=== PATIENT | female | born 1975 | race Caucasian/White ===

== ENCOUNTER 2017-05-07 10:25 | Day surgery (SDC) | payer BC ==
[2017-05-03 10:59] VITALS: BMI 25.5
[~2017-05-07 10:25] MED LIST: DEXAMETHASONE SOD PHOSPHATE 10 MG/ML 1 ML VIAL IV ONE; FAMOTIDINE 20 MG/2 ML VIAL IV PRN; HEPARIN SODIUM,PORCINE 5,000 UNIT/ML 1 ML VIAL SQ ONE; HYDROmorphone 1 MG/ML 1 ML SYRINGE IVP PRN; LACTATED RINGERS 1,000 ML IV SCH; LIDOCAINE 1% 20 ML VIAL (10MG/ML) FOR IV START INTRADERMA PRN; Pre Op ABX Message 1 EACH MISC MISCELLANE ONE; SCOPOLAMINE 1.5MG/72HR PATCH TRANSDERM ONE
[2017-05-07] MEDS ORDERED: ALPRAZolam 0.5 MG TAB PO ONE (11:10)
[2017-05-07 11:56] VITALS: RESP 16
[2017-05-07 12:40] VITALS: TEMP 97.8
[2017-05-07] MEDS ORDERED: LIDOCAINE (PF) 10 MG/ML 2 ML VIAL SQ ONE ×3 (13:41→13:57)
[2017-05-07] MEDS ORDERED: KETOROLAC 30 MG/ML 1 ML VIAL ONE (13:44)
[2017-05-07] MEDS ORDERED: PROPOFOL 10 MG/ML 20 ML VIAL IV ONE (13:44)
[2017-05-07] MEDS ORDERED: fentaNYL (PF) 50 MCG/ML 2 ML AMP ONE (13:44)
[2017-05-07] MEDS ORDERED: MIDAZOLAM 2 MG/2 ML VIAL ONE (13:44)
[2017-05-07] MEDS ORDERED: LIDOCAINE 1% INJ 10MG/ML (20 ML MDV) ONE (13:44)
[2017-05-07] MEDS ORDERED: SODIUM CHLORIDE 0.9% 100 ML with CLINDAMYCIN 600 MG IV ONE ×2 (13:56)
--- NOTE | 2017-05-07 14:49 | P.PCN ---
Date of Procedure: 05/07/17 Preoperative Diagnosis: Right breast mass Birads 4 (per ultrasound) Postoperative Diagnosis: Right breast mass fibroadenosis Procedure(s) Performed: Needle localized biopsy of right breast mass Implants: Anesthesia: local Surgeon: Isabel Ying Estimated Blood Loss (ml): 4 Pathology: other Condition: stable Disposition: PACU Indications for Procedure: Operative Findings: Fibroadnosis like firm tissue in the right breast. The mass measured approximately 2.5 x 3.5 x 5.5 Description of Procedure: With the palpable lump and had been there for 15 years. To change shape. Mammogram did not reveal anything with the ultrasound revealed the parents for lesion that wasn't biopsied using a needle core. However that showed fibrotic tissue which is discordant with the BIRADS 4 reading. Because of that the patient was recommended a needle localized excisional biopsy of the area of suspicion. Informed consent was obtained. Patient was identified. Palpating holding area after the needle localized wire was placed. The appropriate sizes markers were answered he was taken to the operating room in supine position given IV sedation. She was given preoperative antibiotics as well as SCDs. If her clinical surgical fashion after the dressing is been taken off and the wire been cut down to size. A curvilinear incision was made and deepened to the skin with the help of a scalpel and then hemostat was used to dissect superiorly and a niece the skin and above the breast tissue to bring out the wire. This was then traced down all the way to the mass and left cautery was used to completely excise the entire piece of tissue. The tissue itself was then marked with the help of short superior black nylon suture long lateral nylon suture that was black. And double long posterior blue sutures. Hemostasis was secured there with electrocautery subcu tissues tissue was closed with 3-0 Vicryl and skin was closed with 4-0 Monocryl. Dermabond was applied. 4 x 4 placed as well as sports 5. Personal history well there were complications remaining part of the local anesthetic was injected into the surrounding tissues. Patient procedure well and taken to recovery room in stable condition. Plan - Discharge Summary New Discharge Prescriptions: No Action Levothyroxine Sodium [Synthroid] 25 mcg PO DAILY lamoTRIgine [LaMICtal] 100 mg PO DAILY Gabapentin [Neurontin] 400 mg PO TID Famotidine 40 mg PO DAILY Metaxalone 800 mg PO TID Dicyclomine HCl 20 mg PO DAILY PRN PRN Reason: irritable bowel DULoxetine HCL [Cymbalta] 60 mg PO BID Discharge Medication List Dicyclomine HCl 20 mg PO DAILY PRN 05/03/17 [History] Famotidine 40 mg PO DAILY 05/03/17 [History] Gabapentin [Neurontin] 400 mg PO TID 05/03/17 [History] Levothyroxine Sodium [Synthroid] 25 mcg PO DAILY 05/03/17 [History] Metaxalone 800 mg PO TID 05/03/17 [History] lamoTRIgine [LaMICtal] 100 mg PO DAILY 05/03/17 [History] DULoxetine HCL [Cymbalta] 60 mg PO BID 05/07/17 [History]
[2017-05-07 15:31] VITALS: BP 119/82; PULSE 74
--- NOTE | 2017-05-07 17:21 | MM ---
EXAMINATION TYPE: MG pre op needle loc RT DATE OF EXAM: 05/07/2017 COMPARISON: NONE CLINICAL HISTORY: Abnormal mammogram TECHNIQUE: Needle localization with wire placement and surgical excision of area of concern in the right breast. FINDINGS: The procedure of needle localization with wire placement and than surgical excision was explained to the patient. Benefits, alternatives, and risks were discussed. An informed consent was then obtained. The shortest pathway for procedure was chosen. Shortest pathway was superior approach. The overlying skin was prepped and draped in usual sterile fashion. Lidocaine buffered with bicarbonate was used as anesthetic into the skin and subcutaneous tissue up to the level of area of concern. A 5 cm needle was used. It was placed via a superior approach under mammographic guidance. Subsequent 90 degrees mammogram show the needle to be in satisfactory position relative to the targeted area. At this point, wire was placed and the needle was withdrawn. The wire was fixed to patient's skin. Images were marked for surgeon. The patient tolerated the procedure well without any immediate complication. The patient was kept in the radiology department for short stay after the procedure and then taken to surgery for surgical excision. Surgical clip and wire are identified in specimen mammogram. The patient was kept in hospital for short stay after the procedure and then discharged home in stable condition. IMPRESSION: Successful, uncomplicated needle localization with wire placement and surgical excision of surgical clip region in the right breast, full pathology results to follow. Pathology Results: Benign BREAST, RIGHT, NEEDLE LOCALIZATION EXCISION: FIBROADENOMA EXTENDING TO THE RESECTION MARGIN. FIBROCYSTIC CHANGES INCLUDING FIBROSIS, CYSTS, AND ADENOSIS. PREVIOUS BIOPSY SITE. Recommendation Follow up mammogram of the right breast in 6 months. GABRIELA
--- NOTE | 2017-05-07 17:24 | MM ---
EXAMINATION TYPE: MG surgical specimen RT DATE OF EXAM: 05/07/2017 Findings: Surgical clip is within the specimen. The wire may be at the [id number] but is incomplet clay evaluated. IMPRESSION: Successful excision of localized surgical clip
== END 2017-05-07 15:36 | disposition home or self-care (01) ==
LOC: OR 10:25
PROVIDERS: ATTEND Surgery
DX: N60.21 Fibroadenosis of right breast (principal); K58.9 Irritable bowel syndrome, unspecified; R92.8 Other abnormal and inconclusive findings on diagnostic imaging of breast; Z79.899 Other long term (current) drug therapy
CPT/HCPCS: 81025; 88307; 76098; 19281; J2250; J2001 ×2; J1644; J1100; J3010; J1885; J2704

== ENCOUNTER 2017-06-21 19:01 | Observation (INO) | payer BC ==
[2017-06-21] MEDS ORDERED: SODIUM CHLORIDE 0.9% 1,000 ML IV ONE (19:57)
[2017-06-21] MEDS ORDERED: ONDANSETRON 4 MG/2 ML VIAL IVP STA (19:57)
[2017-06-21] MEDS ORDERED: MORPHINE SULFATE 4 MG/ML SYRINGE IVP STA (19:57)
[2017-06-21 20:05] LABS: Basophils # (A) 0.1 k/uL (0-0.2); Basophils % (A) 1 %; CH 30.9; CHCM 34.6; Eosinophils # (A) 0.2 k/uL (0-0.7); Eosinophils % (A) 2 %; HCT 41.8 % (34.0-46.0); HDW 2.45; HGB 14.1 gm/dL (11.4-16.0); Luc % (Auto) 2; Lymphocytes % (A) 17 %; MCH 30.3 pg (25.0-35.0); MCHC 33.8 g/dL (31.0-37.0); MCV 89.5 fL (80.0-100.0); Mean Platelet Volume 8.5; Monocytes # (A) 0.6 k/uL (0-1.0); Monocytes % (A) 5 %; Neutrophils # (A) 8.8 k/uL (1.3-7.7); Neutrophils % (A) 75 %; RBC 4.67 m/uL (3.80-5.40); RDW 13.7 % (11.5-15.5); WBC 11.8 k/uL (3.8-10.6); WBC (Perox) 11.93
--- NOTE | 2017-06-21 20:06 | ED ---
Abdominal Pain HPI <Merritt Robledo - Last Filed: 06/21/17 22:31> - General Source: patient, RN notes reviewed Mode of arrival: ambulatory Limitations: no limitations <Sima Zavala - Last Filed: 06/22/17 03:36> - General Chief Complaint: Abdominal Pain Stated Complaint: Abd Pain Time Seen by Provider: 06/21/17 19:31 - History of Present Illness Initial Comments: Patient is a 42-year-old female presents emergency room for evaluation of abdominal pain. Patient states on Saturday she went to her primary care provider because she was complaining of sinus symptoms and dizziness. Patient states she is placed on Bactrim for sinus infection. Patient states ice infection symptoms have improved but she began developing lower abdominal pain. Patient does state she has a history of IBS. Patient denies constipation or diarrhea. Patient states she's been having left upper quadrant cramping and pain that radiates into her back. Patient also states she's having bilateral flank pain. Patient denies a pain or burning during urination. Patient states she's been having slight trouble urinating. Patient denies history of kidney stones. Patient denies fevers or chills. Patient states she's been nauseous. Patient denies any vomiting. Patient denies chest pain or shortness of breath. Patient states she still feeling dizzy. Patient states she has history cholecystectomy. Patient denies any other abdominal surgeries. (Sima Zavala) - Related Data Home Medications Medication Instructions Recorded Confirmed Dicyclomine HCl 20 mg PO QID PRN 05/03/17 06/21/17 Famotidine 40 mg PO DAILY 05/03/17 06/21/17 Gabapentin [Neurontin] 400 mg PO TID 05/03/17 06/21/17 Levothyroxine Sodium [Synthroid] 25 mcg PO DAILY 05/03/17 06/21/17 Metaxalone 800 mg PO TID 05/03/17 06/21/17 lamoTRIgine [LaMICtal] 100 mg PO DAILY 05/03/17 06/21/17 DULoxetine HCL [Cymbalta] 60 mg PO BID 05/07/17 06/21/17 Montelukast [Singulair] 10 mg PO HS 06/21/17 06/21/17 Sulfamethox-Tmp 800-160Mg [Bactrim 1 tab PO Q12HR 06/21/17 06/21/17 DS 800-160 mg] Allergies Allergy/AdvReac Type Severity Reaction Status Date / Time cefaclor [From Ceclor] Allergy Anaphylaxis Verified 06/21/17 19:13 Review of Systems ROS Other: All systems not noted in ROS Statement are negative. <Merritt Robledo - Last Filed: 06/21/17 22:31> ROS Other: All systems not noted in ROS Statement are negative. <Sima Zavala - Last Filed: 06/22/17 03:36> ROS Statement: Those systems with pertinent positive or pertinent negative responses have been documented in the HPI. Past Medical History Past Medical History: Fibromyalgia, Thyroid Disorder Additional Past Medical History / Comment(s): IBS, CYST RIGHT BREAST History of Any Multi-Drug Resistant Organisms: MRSA Date of last positivie culture/infection: 2009 MDRO Source:: GROIN Past Surgical History: Cholecystectomy Additional Past Surgical History / Comment(s): U/S GUIDED BREAST BX, NECK FUSION , SINUS X2, I&D Past Anesthesia/Blood Transfusion Reactions: Postoperative Nausea & Vomiting ( PONV) Past Psychological History: Bipolar Smoking Status: Current every day smoker Past Alcohol Use History: Occasional Past Drug Use History: Marijuana - Past Family History Father Family Medical History: Cancer Additional Family Medical History / Comment(s): SKIN <Sima Zavala - Last Filed: 06/22/17 03:36> General Exam <Merritt Robledo - Last Filed: 06/21/17 22:31> Limitations: no limitations General appearance: alert, in no apparent distress Head exam: Present: atraumatic, normocephalic, normal inspection Eye exam: Present: normal appearance ENT exam: Present: normal exam Neck exam: Present: normal inspection Respiratory exam: Present: normal lung sounds bilaterally. Absent: respiratory distress Cardiovascular Exam: Present: regular rate, normal rhythm, normal heart sounds GI/Abdominal exam: Present: soft, tenderness (left upper quadrant), normal bowel sounds. Absent: distended, guarding, rebound, rigid Extremities exam: Present: normal inspection Back exam: Present: normal inspection Neurological exam: Present: alert, oriented X3, CN II-XII intact, normal gait Psychiatric exam: Present: normal affect, normal mood Skin exam: Present: warm, dry, intact, normal color. Absent: rash <Sima Zavala - Last Filed: 06/22/17 03:36> - General Exam Comments Initial Comments: sitting in exam room, no acute distress. (Sima Zavala) Medical Decision Making - Lab Data Result diagrams: 06/21/17 19:35 06/21/17 19:35 <Merritt Robledo - Last Filed: 06/21/17 22:31> - Lab Data Result diagrams: 06/21/17 19:35 06/21/17 19:35 - Radiology Data Radiology results: report reviewed, image reviewed <Sima Zavala - Last Filed: 06/22/17 03:36> - Medical Decision Making The patient was seen and examined. All diagnostics were reviewed. The case is discussed with internal medicine and they're agreeable for admission with GI to consult. The case is discussed with the PA and I agree with the findings as documented. (Merritt Robledo) Patient is a 42-year-old female presents to the emergency room for evaluation of abdominal pain. CT of abdomen/pelvis: There is a mildly dilated biliary tree and the possibility of distal common bile duct obstruction should be considered. Patient will be admitted and further evaluation by GI specialist. ( Sima Zavala) - Lab Data Lab Results 06/21/17 06/21/17 06/21/17 Range/Units 19:35 19:35 19:35 WBC 11.8 H (3.8-10.6) k/uL RBC 4.67 (3.80-5.40) m/uL Hgb 14.1 (11.4-16.0) gm/dL Hct 41.8 (34.0-46.0) % MCV 89.5 (80.0-100.0) fL MCH 30.3 (25.0-35.0) pg MCHC 33.8 (31.0-37.0) g/dL RDW 13.7 (11.5-15.5) % Plt Count 300 (150-450) k/uL Neutrophils % 75 % Lymphocytes % 17 % Monocytes % 5 % Eosinophils % 2 % Basophils % 1 % Neutrophils # 8.8 H (1.3-7.7) k/uL Lymphocytes # 2.0 (1.0-4.8) k/uL Monocytes # 0.6 (0-1.0) k/uL Eosinophils # 0.2 (0-0.7) k/uL Basophils # 0.1 (0-0.2) k/uL Sodium 137 (137-145) mmol/L Potassium 3.9 (3.5-5.1) mmol/L Chloride 104 (98-107) mmol/L Carbon Dioxide 27 (22-30) mmol/L Anion Gap 6 mmol/L BUN 6 L (7-17) mg/dL Creatinine 0.90 (0.52-1.04) mg/dL Est GFR (MDRD) Af Amer >60 (>60 ml/min/1.73 sqM) Est GFR (MDRD) Non-Af >60 (>60 ml/min/1.73 sqM) Glucose 77 (74-99) mg/dL Calcium 8.6 (8.4-10.2) mg/dL Total Bilirubin 0.4 (0.2-1.3) mg/dL AST 122 H (14-36) U/L ALT 96 H (9-52) U/L Alkaline Phosphatase 90 (38-126) U/L Total Protein 6.4 (6.3-8.2) g/dL Albumin 3.9 (3.5-5.0) g/dL Amylase <30 L (30-110) U/L Lipase 28 (23-300) U/L Urine Color Urine Appearance (Clear) Urine pH (5.0-8.0) Ur Specific Vestal (1.001-1.035) Urine Protein (Negative) Urine Glucose (UA) (Negative) Urine Ketones (Negative) Urine Blood (Negative) Urine Nitrite (Negative) Urine Bilirubin (Negative) Urine Urobilinogen (<2.0) mg/dL Ur Leukocyte Esterase (Negative) Urine RBC (0-5) /hpf Urine WBC (0-5) /hpf Ur Squamous Epith Cells (0-4) /hpf Urine Bacteria (None) /hpf Urine HCG, Qual Not Detected (Not Detectd) 06/21/17 Range/Units 19:35 WBC (3.8-10.6) k/uL RBC (3.80-5.40) m/uL Hgb (11.4-16.0) gm/dL Hct (34.0-46.0) % MCV (80.0-100.0) fL MCH (25.0-35.0) pg MCHC (31.0-37.0) g/dL RDW (11.5-15.5) % Plt Count (150-450) k/uL Neutrophils % % Lymphocytes % % Monocytes % % Eosinophils % % Basophils % % Neutrophils # (1.3-7.7) k/uL Lymphocytes # (1.0-4.8) k/uL Monocytes # (0-1.0) k/uL Eosinophils # (0-0.7) k/uL Basophils # (0-0.2) k/uL Sodium (137-145) mmol/L Potassium (3.5-5.1) mmol/L Chloride (98-107) mmol/L Carbon Dioxide (22-30) mmol/L Anion Gap mmol/L BUN (7-17) mg/dL Creatinine (0.52-1.04) mg/dL Est GFR (MDRD) Af Amer (>60 ml/min/1.73 sqM) Est GFR (MDRD) Non-Af (>60 ml/min/1.73 sqM) Glucose (74-99) mg/dL Calcium (8.4-10.2) mg/dL Total Bilirubin (0.2-1.3) mg/dL AST (14-36) U/L ALT (9-52) U/L Alkaline Phosphatase (38-126) U/L Total Protein (6.3-8.2) g/dL Albumin (3.5-5.0) g/dL Amylase (30-110) U/L Lipase (23-300) U/L Urine Color Light Yellow Urine Appearance Cloudy H (Clear) Urine pH 6.0 (5.0-8.0) Ur Specific Vestal 1.004 (1.001-1.035) Urine Protein Negative (Negative) Urine Glucose (UA) Negative (Negative) Urine Ketones Negative (Negative) Urine Blood Negative (Negative) Urine Nitrite Negative (Negative) Urine Bilirubin Negative (Negative) Urine Urobilinogen <2.0 (<2.0) mg/dL Ur Leukocyte Esterase Negative (Negative) Urine RBC 1 (0-5) /hpf Urine WBC <1 (0-5) /hpf Ur Squamous Epith Cells 5 H (0-4) /hpf Urine Bacteria Moderate H (None) /hpf Urine HCG, Qual (Not Detectd) Disposition <Merritt Robledo - Last Filed: 06/21/17 22:31> Decision Date: 06/21/17 <Sima Zavala - Last Filed: 06/22/17 03:36> Clinical Impression: Common bile duct obstruction Disposition: ADMITTED IP TO THIS HOSP Condition: Stable
[2017-06-21 20:10] LABS: Appearance,Urine Cloudy (Clear); Bacteria,Urine Moderate /hpf; Bilirubin,Urine Negative (Negative); Glucose,Urine (UA) Negative (Negative); Ketones,Urine Negative (Negative); Leukocyte Esterase,Urine Negative (Negative); Nitrite,Urine Negative (Negative); Particle Count 937; Protein,Urine Negative (Negative); RBC,Urine 1 /hpf (0-5); Specific Gravity,Urine 1.004 (1.001-1.035); Squamous Epithelial Cell,Urine 5 /hpf (0-4); UA Billing (MACRO vs. MICRO) MICRO; Urobilinogen,Urine <2.0 mg/dL (<2.0); WBC,Urine <1 /hpf (0-5)
[2017-06-21 20:14] LABS: ALT 96 U/L (9-52); AST 122 U/L (14-36); Alkaline Phosphatase 90 U/L (38-126); Amylase <30 U/L (30-110); Anion Gap 6 mmol/L; Blood Urea Nitrogen 6 mg/dL (7-17); Calcium 8.6 mg/dL (8.4-10.2); Carbon Dioxide 27 mmol/L (22-30); Chloride 104 mmol/L (98-107); Glucose 77 mg/dL (74-99); Non-African American GFR(MDRD) >60 (>60 ml/min/1.73 sqM); Potassium 3.9 mmol/L (3.5-5.1); Sodium 137 mmol/L (137-145); Total Bilirubin 0.4 mg/dL (0.2-1.3); Total Protein 6.4 g/dL (6.3-8.2)
[2017-06-21] MEDS ORDERED: RX INFO: IV CONTRAST WAS GIVEN 1 EACH MISC MISCELLANE PRN (20:32)
--- NOTE | 2017-06-21 21:17 | CT ---
EXAMINATION TYPE: CT abdomen pelvis w con DATE OF EXAM: 06/21/2017 COMPARISON: NONE HISTORY: Lower abdominal/back pain. CT DLP: 1396 mGycm Automated exposure control for dose reduction was used. TECHNIQUE: Helical acquisition of images was performed from the lung bases through the pelvis. CONTRAST: Performed without Oral Contrast and with IV Contrast, patient injected with 100 mL of Omnipaque 300. FINDINGS: Lung bases are clear of consolidation. There is no pleural effusion. Heart size is normal. There is mild ectasia of the biliary tree. There are clips from cholecystectomy. Common bile duct deyvi sures 8 mm. Spleen and pancreas appear normal. There is no adrenal mass. Kidneys show satisfactory contrast opacification. There is no hydronephrosi s. Ureters are not dilated. There is a intermediate density 1 cm exophytic focus on the posterior lef t kidney. There is no retroperitoneal adenopathy. I see no intestinal wall thickening. There are no dilated loops. Bladder distends smoothly. There is no ascites. Uterus is anteverted. There is a 2 cm cyst on the left ovary. Appendix is not seen. There is no sign of appendicitis. IMPRESSION: THERE IS A MILDLY DILATED BILIARY TREE AND THE POSSIBILITY OF DISTAL COMMON BILE DUCT OBSTRUCTION LYDIA ULD BE CONSIDERED. I DO NOT SEE A MASS OR OBSTRUCTING LESION IN THE DISTAL COMMON BILE DUCT. EXOPHYTIC ROUNDED LESION ON THE POSTERIOR LEFT KIDNEY IS PROBABLY A COMPLEX CYST. COMPARISON WITH ANY OLD EXAM WOULD BE HELPFUL. 2 CM LEFT OVARIAN CYST.
[2017-06-21] MEDS ORDERED: HYDROmorphone 1 MG/ML 1 ML SYRINGE IVP STA ×2 (21:23→22:10)
[2017-06-21] MEDS ORDERED: NALOXONE 0.4 MG/ML 1 ML VIAL IV PRN (22:40)
[2017-06-21] MEDS ORDERED: ONDANSETRON 4 MG/2 ML VIAL IVP PRN (22:40)
[2017-06-21] MEDS: SODIUM CHLORIDE 0.9% 1,000 ML IV SCH (23:05)
[2017-06-21 23:51] VITALS: BMI 25.5
[2017-06-22] MEDS ORDERED: DICYCLOMINE 20 MG TAB PO PRN (00:15)
[2017-06-22] MEDS: TEMAZEPAM 30 MG CAP PO PRN ×2 (00:26→22:43)
[2017-06-22] MEDS: NICOTINE 21MG/24HR PATCH TRANSDERM SCH ×2 (01:01→08:13)
[2017-06-22] MEDS: HYDROmorphone 1 MG/ML 1 ML SYRINGE IV PRN ×6 (01:58→22:43)
[2017-06-22] MEDS: LEVOTHYROXINE 25 MCG TAB PO SCH (06:18)
[2017-06-22 08:11] LABS: Basophils # (A) 0.1 k/uL (0-0.2); Basophils % (A) 1 %; CH 30.5; CHCM 33.6; Eosinophils # (A) 0.2 k/uL (0-0.7); Eosinophils % (A) 2 %; HCT 39.3 % (34.0-46.0); HDW 2.47; HGB 12.9 gm/dL (11.4-16.0); Luc # (Auto) 0.16; Luc % (Auto) 2; Lymphocytes # (A) 1.7 k/uL (1.0-4.8); Lymphocytes % (A) 19 %; MCH 29.9 pg (25.0-35.0); MCHC 32.9 g/dL (31.0-37.0); Mean Platelet Volume 8.3; Monocytes # (A) 0.6 k/uL (0-1.0); Monocytes % (A) 7 %; Neutrophils # (A) 6.2 k/uL (1.3-7.7); Neutrophils % (A) 69 %; RBC 4.32 m/uL (3.80-5.40); RDW 13.7 % (11.5-15.5); WBC (Perox) 9.52
[2017-06-22] MEDS: GABAPENTIN 400 MG CAP PO SCH ×3 (08:13→21:03)
[2017-06-22] MEDS: FAMOTIDINE 20 MG TAB PO SCH (08:13)
[2017-06-22] MEDS: DULoxetine HCL 60 MG CAPSULE.DR PO SCH ×2 (08:13→20:12)
[2017-06-22] MEDS: lamoTRIgine 100 MG TAB PO SCH (08:13)
[2017-06-22 08:43] LABS: ALT 228 U/L (9-52); AST 322 U/L (14-36); Alkaline Phosphatase 103 U/L (38-126); Amylase 64 U/L (30-110); Anion Gap 5 mmol/L; Blood Urea Nitrogen 4 mg/dL (7-17); Calcium 8.3 mg/dL (8.4-10.2); Carbon Dioxide 25 mmol/L (22-30); Chloride 111 mmol/L (98-107); Glucose 79 mg/dL (74-99); Non-African American GFR(MDRD) >60 (>60 ml/min/1.73 sqM); Sodium 141 mmol/L (137-145); Total Bilirubin 0.7 mg/dL (0.2-1.3); Total Protein 5.7 g/dL (6.3-8.2)
[2017-06-22] MEDS: SODIUM CHLORIDE 0.9% 1,000 ML IV SCH ×2 (09:32→19:35)
--- NOTE | 2017-06-22 11:05 | CONS ---
Reason for consultation: Abdominal pain. Dilated CBD. HISTORY OF PRESENT ILLNESS: The patient is a 42 -year-old pleasant white female , came into the emergency room for evaluation of diffuse abdominal pain that started four days ago. She initially had some sinus infection, went to see Dr. Ponce, got some antibiotics but she started developing lower abdominal pain. Initially was in the lower abdomen and then it was in the periumbilical area radiating all the way around to the back and the back pain continually to progressive getting worse. She had some nausea but no emesis. No significant change in bowel habits. She was diagnosed with irritable bowel syndrome age 22 and she always has chronic lower abdominal pain. She believes that this pain was much more intense and started to get very concerned. Came into the emergency room for further evaluation. She had a CT of the abdomen and pelvis done in the emergency room that showed a slightly dilated CBD at 8 mm in diameter and possibility of CBC obstruction could not be excluded by the radiologist and hence we are consulted in regards to this issue. The patient is status post gallbladder surgery for gallbladder dyskinesia about 15 years ago. No history of chronic liver disease. Past medical history is significant for fibromyalgia, irritable bowel syndrome, hypothyroidism. Past surgical history: Cholecystectomy, breast biopsy, neck fusion. Medications at home: 1. Synthroid. 2. Neurontin. 3. Famotidine. 4. Dicyclomine. 5. Lamictal. 6. Cymbalta. 7. Singulair. 8. Bactrim. ALLERGIES: CEFACLOR. SOCIAL HISTORY: No history of smoking. No alcohol use. FAMILY HISTORY: Father had some kind of skin cancer. REVIEW OF SYSTEMS: Cardiopulmonary: No chest pain or shortness of breath. : no dysuria or hematuria. Musculoskeletal: Unremarkable. Skin: Unremarkable. Endocrine: Unremarkable. Psychiatric: Unremarkable. Neurological : Unremarkable. ENT/vision: unremarkable. Constitutional: No recent weight loss. No fevers, chills or night sweats. On physical examination, blood pressure 122/75, pulse rate 70, temperature 96.7 , HEENT: Examination unremarkable. Conjunctivae pink. Sclerae anicteric. Oral cavity no lesions. Neck no JVD or lymph node enlargement. Chest clear to auscultation. Heart regular rate and rhythm. Abdomen soft, slightly tender in the periumbilical area but it was nondistended. Very soft. No organomegaly. Extremities: No pedal edema. Skin no rashes. Neurological: Alert and oriented times three. No focal deficits. Labs from this today: WBC 11.8. Hemoglobin 14.1, platelets are normal. Basic metabolic panel is within normal limits. Amylase and lipase is normal. ACT is 122. ALT 96. T. bili and alk phos are normal. CT of the abdomen and pelvis done in the emergency room showed a slightly dilated CBD measuring 8 mm in diameter and 2 cm left ovarian cyst and a kidney cyst. IMPRESSION: This patient presents with diffuse abdominal pain and CT scan showed mild dilation of the common bile duct with no intrahepatic biliary ductal dilation. She is status post cholecystectomy 15 years ago for gallbladder dyskinesia. She is noted to have mild elevation of serum transaminases. At this time, possibility of CBD obstruction cannot be excluded though it appears very unlikely even the clinical presentation. RECOMMENDATIONS: 1. I will request for MRCP to be done today. 2. Repeat CBC and CMP tomorrow morning. 3. Continue symptomatic and supportive care. 4. At this time, there is no plan for any endoscopy intervention. We will follow her closely during this hospital stay. Thank you for this consultation. GABRIELA
--- NOTE | 2017-06-22 13:46 | MR ---
MRCP HISTORY: Dilated common bile duct, abnormal CT Multiplanar multisequence imaging through the biliary system. Correlation to CT abdomen pelvis 06/21/2017 Patient is status post cholecystectomy. Mild prominence of the biliary system likely due to postchole cystectomy change. Signal loss on out of phase imaging within the liver in relation to the spleen sug gests underlying hepatic steatosis. The adrenal glands, pancreas, kidneys are within normal limits. N o evident ascites or retroperitoneal adenopathy. The aorta shows normal caliber. There is no filling defect seen within the biliary system. Signal void within the pancreatic duct yanet trally thought to be technical rather than represent luminal abnormality. IMPRESSION: Postcholecystectomy change. Additional findings above.
[2017-06-22] MEDS ORDERED: MONTELUKAST 10 MG TAB PO SCH (21:00)
[2017-06-23] MEDS: SODIUM CHLORIDE 0.9% 1,000 ML IV SCH ×2 (06:00→14:01)
[2017-06-23] MEDS: LEVOTHYROXINE 25 MCG TAB PO SCH (06:34)
[2017-06-23] MEDS: HYDROmorphone 1 MG/ML 1 ML SYRINGE IV PRN ×3 (06:34→14:28)
--- NOTE | 2017-06-23 07:17 | XR ---
Lumbar spine HISTORY: Low back pain 3 views of the lumbar spine No comparisons Lumbar vertebral bodies show preserved height, alignment, and bone mineralization. Surgical clips pre sent in the right upper quadrant. There is mild multilevel spondylosis. Disc spaces are maintained. IMPRESSION: Mild lumbar spondylosis.
[2017-06-23] MEDS: GABAPENTIN 400 MG CAP PO SCH ×2 (07:27→14:28)
[2017-06-23] MEDS: NICOTINE 21MG/24HR PATCH TRANSDERM SCH (07:27)
[2017-06-23] MEDS: FAMOTIDINE 20 MG TAB PO SCH (07:27)
[2017-06-23] MEDS: lamoTRIgine 100 MG TAB PO SCH (07:27)
[2017-06-23] MEDS: DULoxetine HCL 60 MG CAPSULE.DR PO SCH (07:27)
[2017-06-23 07:46] VITALS: BP 125/60; PULSE 75; RESP 14; TEMP 96.9
[2017-06-23 07:47] LABS: Basophils % (A) 0 %; CH 30.1; CHCM 33.5; Eosinophils # (A) 0.3 k/uL (0-0.7); Eosinophils % (A) 4 %; HCT 39.8 % (34.0-46.0); HDW 2.51; HGB 13.4 gm/dL (11.4-16.0); Luc # (Auto) 0.21; Luc % (Auto) 2; Lymphocytes # (A) 2.2 k/uL (1.0-4.8); Lymphocytes % (A) 26 %; MCH 30.3 pg (25.0-35.0); MCHC 33.5 g/dL (31.0-37.0); MCV 90.4 fL (80.0-100.0); Mean Platelet Volume 7.5; Monocytes # (A) 0.6 k/uL (0-1.0); Monocytes % (A) 7 %; Neutrophils # (A) 5.2 k/uL (1.3-7.7); Neutrophils % (A) 61 %; RBC 4.41 m/uL (3.80-5.40); RDW 13.1 % (11.5-15.5); WBC 8.5 k/uL (3.8-10.6); WBC (Perox) 8.95
[2017-06-23 08:07] LABS: ALT 157 U/L (9-52); AST 107 U/L (14-36); Alkaline Phosphatase 107 U/L (38-126); Amylase 36 U/L (30-110); Anion Gap 7 mmol/L; Blood Urea Nitrogen 4 mg/dL (7-17); Calcium 8.7 mg/dL (8.4-10.2); Carbon Dioxide 25 mmol/L (22-30); Chloride 109 mmol/L (98-107); Glucose 87 mg/dL (74-99); Non-African American GFR(MDRD) >60 (>60 ml/min/1.73 sqM); Potassium 3.8 mmol/L (3.5-5.1); Sodium 141 mmol/L (137-145); Total Bilirubin 0.6 mg/dL (0.2-1.3); Total Protein 6.1 g/dL (6.3-8.2)
--- NOTE | 2017-06-23 08:08 | HP ---
DATE OF ADMISSION: 06/21/17 PRESENTING COMPLAINT: Abdominal and low back pain. HISTORY OF PRESENTING COMPLAINT: This is a 42 year old patient of Dr. Ponce whose chronic stable medical conditions include fibromyalgia, hypothyroid, bipolar disorder, the patient is a smoker. The patient states that she for years had chronic low back pain. She has been told by her family doctor that it is fibromyalgia. Sometimes the pain radiates to the front. The patient for four days having increasing lower abdominal pain. Going to the front. Also had some nausea. Denies any fever. The patient has a bowel movement every other day. CT scan in the ER did reveal some dilation of the bile duct. Hence she was admitted. The patient otherwise had been tolerating a diet. REVIEW OF SYSTEMS: Constitutional: Tired. HEENT: None. Respiratory: None. Cardiovascular: None. Gastrointestinal: As above including heartburn. Genitourinary: None. Musculoskeletal: Chronic pain in multiple joints. Dermatological: None. Hematological: None. Lymphatics: None. Psychiatric: Bipolar under control. Neurological: None. PAST MEDICAL HISTORY: Fibromyalgia. Hypothyroid. Irritable bowel syndrome. Bipolar disorder. PAST SURGICAL: Cholecystectomy. Neck fusion. Sinus surgery. I&D. SOCIAL HISTORY: The patient lives with her parents, unemployed, alcohol rarely. Does medical marijuana. Smokes a pack a day. FAMILY HISTORY: Skin cancer. Home medications: 1. Lamictal 100 mg a day. 2. Bactrim DS one tablet po q12. 3. Singulair 10 mg q.h.s. 4. Metaxalone 800 mg po t.i.d. 5. Synthroid 25 mcg a day. 6. Neurontin 400 mg po t.i.d. 7. Pepcid 40 mg a day. 8. Dicyclomine 200 mg po t.i.d. prn 9. Cymbalta 60 mg po b.i.d. ALLERGIES: CEFACLOR. On examination, temperature 97.8. Pulse 83. Respiratory rate 20. Blood pressure 130/78. Pulse ox 98% on room air. GENERAL APPEARANCE: Average build. Lying in bed. Not in distress. EYES: Pupils equal. Conjunctivae normal. Oral cavity normal. NECK: JVD not raised. Mass not palpable. RESPIRATORY: Effort normal. LUNGS: Fair entry. CARDIOVASCULAR: Heart sounds first and second sounds. No edema. ABDOMEN: Mild diffuse abdominal tenderness. No guarding or rigidity. Liver and spleen not palpable. LYMPHATICS: No lymph nodes palpable in the neck and axillae. PSYCHIATRIC: Alert and oriented times three. Mood and affect normal. NEUROLOGICAL: Pupils equal. Cranial nerves grossly intact. Power and sensation grossly intact. DERMATOLOGICAL: ( ) present. MUSCULOSKELETAL: No tenderness over the lumbar spine. Additionally the patient has no trouble walking and no trouble with her bowels and urine. INVESTIGATIONS: White count 11.8, hemoglobin 14.1. Potassium 3.9. BUN 6. Creatinine 0.90. AST 122, ALT 196. Repeat AST 322, ALT 228. Lipase is 28 and 405. ASSESSMENT: 1. Possible common bile duct stone that may have passed causing an obstructive hepatitis picture with mild pancreatitis. 2. Chronic fibromyalgia, multiple joints. 3. Hypothyroidism. 4. Irritable bowel syndrome. 5. Bipolar disorder. 6. Chronic nicotine dependence, the patient is a smoker. PLAN: Gastroenterology was consulted and Dr. Echavarria did order a cholangiogram pancreato MRI that is coming out to be unremarkable. We will also do lumbar spine plain x-ray. The patient counseled against smoking, given a nicotine patch. Other home medications are resumed. If chronic low back pain, we will have the patient follow with Dr. Abdi. X-rays unremarkable. We will await further input from gastroenterology. Repeat LFTs in the morning. Give IV fluids. Copy to Dr. Ponce. GABRIELA
[2017-06-23] MEDS ORDERED: ENOXAPARIN 40 MG/0.4 ML SYRINGE SQ SCH (09:00)
--- NOTE | 2017-06-23 11:35 | PN ---
DATE OF SERVICE: 06/23/2017 The patient is a 42-year-old white female with history of longstanding history of IBS, admitted to the hospital with diffuse abdominal pain that has been progressively getting worse for the last few weeks duration. At the time of admission to the hospital she was noted to have mild elevation of serum transaminases that increased to almost 300 and lipase was also slightly elevated. Hence, she had MRCP done yesterday that showed slight prominence of common bile duct but no evidence of intrahepatic biliary system. There were no filling defects noted or mass seen in the CBD or the pancreas. In the meantime , patient remains the same. Her serum transaminases are improving. No nausea or vomiting. PHYSICAL EXAMINATION: She appears comfortable, no apparent distress. VITAL SIGNS: Stable. Blood pressure is 98/50, pulse rate 71, temperature 97.1. HEENT: Unremarkable. Conjunctivae are pink, sclerae anicteric. Oral cavity, no lesions. NECK: No JVD or lymph node enlargement. CHEST: Clear to auscultation. HEART: Regular rate and rhythm. ABDOMEN: Soft. Mild tenderness in the epigastric area. EXTREMITIES: Pulses are positive. No pedal edema. SKIN: No rashes. NEURO: Alert and oriented x3. No focal deficits. LABS: WBC 8.5, hemoglobin 13.4, platelets 267. AST is down to 107, ALT is down to 157. T. bili and alkaline phosphatase are within normal limits. Amylase and lipase and 36 and 71 respectively. IMPRESSION: This is a lady with a longstanding history of irritable bowel syndrome who presents with worsening abdominal pain for the last few days duration. She was noted to have mild elevation of serum transaminases at the time of admission to the hospital that went up to 300's yesterday with normal bili and alkaline phosphatase. MRCP done yesterday did not show any evidence of biliary dilation or CBD stone or other filling defects. This morning her serum transaminases are gradually improving. At this time she may have a component of sphincter of Oddi dysfunction that could have resulted in elevated serum transaminases transiently that are gradually improving. RECOMMENDATIONS: 1. No indication for an ERCP at the present time. 2. Continue with symptomatic and supportive care. 3. Continue with Bentyl for IBS. 4. Will follow her closely during her hospital stay. GABRIELA
--- NOTE | 2017-06-23 19:10 | P.DS ---
Providers Date of admission: 06/21/17 22:44 Expected date of discharge: 06/23/17 Attending physician: Magno Fernnado Consults: 06/21/17 22:41 Consult Physician Urgent Consulting Provider: Anabel Echavarria Consult Reason/Comments: dilated biliary tree, possible distal common bile duct obstruction Do you want consulting provider notified?: Yes Primary care physician: [facility] Hospital Course: FINAL DIAGNOSES: -Possible common bile duct stone that may have passed causing an obstructive hepatitis picture with mild pancreatitis. -Chronic fibromyalgia, multiple joints -Hypothyroidism. -Irritable bowel syndrome. -Bipolar disorder. -Chronic nicotine dependence, the patient is a smoker. HOSPTIAL COURSE: This is a 42-year-old female who has a history of chronic back pain and presented with 4 days of increasing lower abdominal pain that radiated to the front with associated nausea. Computed tomography scan done in the ER revealed dilatation of the bile duct, patient was admitted, labs were drawn, gastroenterology was consulted, a cholangiogram was completed and was unremarkable. Serum markers downtrending. Patient complains of back pain, lumbar spinal films were obtained, revealed spondylosis. Patient was counseled on the importance of smoking cessation, patient verbalized understanding and agreement and a commitment to attempt to quit smoking. Patient's tolerating a diet, ambulatory in the room, patient will follow-up with orthopedics regarding back pain, should also follow-up with gastroenterology for abdominal pain and IBS. Patient is at this point stable for discharge. PHYSICAL EXAM: CARDIOVASCULAR: First and second sounds noted no edema RESPIRATORY: Respiratory effort normal, lung sounds clear to auscultation bilaterally GI: Abdomen soft nontender liver and spleen not palpable MUSKULOSKELETAL: Mild tenderness to lumbar region and bilateral flanks DISPOSITION: Discharge home to the care of her family. Patient was seen and examined by nurse practitioner Jacqueline yT in all elements of the case discussed with attending Dr. Fernando Pertinent Studies: Lumbar spine x-ray: Mild lumbar spondylosis Cholangiopancreatography MRI: No filling defects seen in the biliary system, post cholecystectomy changes. Patient Condition at Discharge: Stable Plan - Discharge Summary New Discharge Prescriptions: New Nicotine 21Mg/24Hr Patch [Habitrol] 1 patch TRANSDERM DAILY patch Baclofen [Lioresal] 5 mg PO Q6H PRN #30 tablet PRN Reason: Spasms Naproxen [Naprosyn] 250 mg PO BID #20 tab Continue Levothyroxine Sodium [Synthroid] 25 mcg PO DAILY lamoTRIgine [LaMICtal] 100 mg PO DAILY Gabapentin [Neurontin] 400 mg PO TID Famotidine 40 mg PO DAILY Metaxalone 800 mg PO TID Dicyclomine HCl 20 mg PO QID PRN PRN Reason: IBS DULoxetine HCL [Cymbalta] 60 mg PO BID Montelukast [Singulair] 10 mg PO HS Discontinued Sulfamethox-Tmp 800-160Mg [Bactrim DS 800-160 mg] 1 tab PO Q12HR Discharge Medication List Dicyclomine HCl 20 mg PO QID PRN 05/03/17 [History] Famotidine 40 mg PO DAILY 05/03/17 [History] Gabapentin [Neurontin] 400 mg PO TID 05/03/17 [History] Levothyroxine Sodium [Synthroid] 25 mcg PO DAILY 05/03/17 [History] Metaxalone 800 mg PO TID 05/03/17 [History] lamoTRIgine [LaMICtal] 100 mg PO DAILY 05/03/17 [History] DULoxetine HCL [Cymbalta] 60 mg PO BID 05/07/17 [History] Montelukast [Singulair] 10 mg PO HS 06/21/17 [History] Baclofen [Lioresal] 5 mg PO Q6H PRN #30 tablet 06/23/17 [Rx] Naproxen [Naprosyn] 250 mg PO BID #20 tab 06/23/17 [Rx] Nicotine 21Mg/24Hr Patch [Habitrol] 1 patch TRANSDERM DAILY patch 06/23/17 [Rx] Follow up Appointment(s)/Referral(s): Sondra Abdi DO [Doctor of Osteopathic Medicine] - 1 Week (back pain) Anabel Echavarria MD [STAFF PHYSICIAN] - 2 Weeks Jorge Kirk MD [STAFF PHYSICIAN] - 1 Week (complex left kidney cyst) Gabriel Ponce MD [Primary Care Provider] - 1 Week Ambulatory/Diagnostic Orders: Complete Blood Count w/diff [LAB.AMB] Location: Determined By Patient Comprehensive Metabolic Panel [LAB.AMB] Location: Determined By Patient Patient Instructions/Handouts: Acute Low Back Pain (DC) Activity/Diet/Wound Care/Special Instructions: Regular diet heating pad buy OTC Discharge Disposition: HOME SELF-CARE
--- NOTE | 2017-06-26 21:59 | DS ---
ATTENDING NOTE: This patient seen and examined by me on 06/23/2017. Discussed the care with my nurse practitioner, Melony. FINAL DIAGNOSIS: 1. Acute sphincter of Oddi dysfunction causing acute elevation of LFTs. 2. Chronic fibromyalgia in multiple joints with acute flareup possibly in the lower back. 3. Hypothyroidism. 4. Irritable bowel syndrome. 5. Bipolar disorder. 6. Chronic nicotine dependence. The patient presented with acute on chronic lower back pain. X-ray was negative. The patient will follow-up with Dr. Abdi as an outpatient. LFTs had gone up, discussed with Dr. Raina Echavarria, felt to be sphincter of Oddi dysfunction. The patient was counseled extensively about smoking. This was also discussed with mother at the bedside. Care of the patient discussed in detail. On examination, abdomen soft and nontender. No tenderness in the spine. PSYCH: Alert and oriented times three. Follow-up with ( ). Follow-up with Dr. Kirk from urology for a complex cyst noted on the left kidney. Discharge planning more than 35 minutes. GABRIELA
== END 2017-06-23 14:52 | disposition home or self-care (01) ==
LOC: EC 19:01 → 4MS4W 22:44
PROVIDERS: ADMIT Hospitalist; ATTEND Hospitalist
DX: K83.8 Other specified diseases of biliary tract (principal); K58.9 Irritable bowel syndrome, unspecified; F31.9 Bipolar disorder, unspecified; M79.7 Fibromyalgia; E03.9 Hypothyroidism, unspecified; R42 Dizziness and giddiness; R10.12 Left upper quadrant pain; R11.0 Nausea; G89.29 Other chronic pain; R79.89 Other specified abnormal findings of blood chemistry; M47.896 Other spondylosis, lumbar region; F17.210 Nicotine dependence, cigarettes, uncomplicated; Z90.49 Acquired absence of other specified parts of digestive tract; Z79.899 Other long term (current) drug therapy; Z88.1 Allergy status to other antibiotic agents; Z86.14 Personal history of Methicillin resistant Staphylococcus aureus infection; Z98.1 Arthrodesis status
CPT/HCPCS: 96376 ×2; 96361 ×3; 96372; 96374; 96375; 99285; 36415; 80053 ×3; 82150 ×3; 83690 ×3; 85025 ×3; 81001; 81025; 87086; 72100; 74177; 74181; G0378 ×3; S4990 ×2; J2270; J2405 ×2; J1650; J1170 ×3; Q9967

== ENCOUNTER → 2017-08-08 | Outpatient (CLI) | payer BC ==
--- NOTE | 2017-08-08 20:23 | MR ---
EXAMINATION TYPE: MR lumbar spine wo con DATE OF EXAM: 08/08/2017 COMPARISON: Lumbar spine x-ray June 22, 2017. HISTORY: Low back pain per order. Left sided low back pain for 6 months causing pain into bilateral b uttocks and outer thighs per patient. TECHNIQUE: Multiplanar, multisequence imaging of the lumbar spine is performed without IV contrast. FINDINGS: Sagittal images of the lumbar spine show vertebral body heights and alignment to appear sat isfactory. The intervertebral discs demonstrate normal heights and hydration. No significant posteri or disc herniations are seen on sagittal images. The conus medullaris is slightly low in position end ing at mid L2 level. No abnormal signal or suspicious clumping of lumbosacral nerve roots is present . The bone marrow signal intensity is within normal limits. Tiny hemangioma L4 vertebral body level s een on sagittal image 8. No significant spurring is seen. Axial images show the T12-L1, L1-L2, and L2-L3 levels all to appear within normal limits. Axial images at L3-L4 and L4-L5 levels show mild facet degenerative changes bilaterally. There are mi ld broad disc bulge minimally effacing anterior thecal sac. Bilateral neural foramina are patent. Axial images at L5-S1 level are felt within normal limits. No suspicious retroperitoneal findings are seen. Paraspinal muscle bulk is preserved. IMPRESSION: Some mild degenerative changes L3-L4 and L4-L5 level are seen as detailed above.
== END | disposition home or self-care (01) ==
LOC: RADMRIMAIN 16:45
PROVIDERS: ATTEND Internal Medicine
DX: M47.816 Spondylosis without myelopathy or radiculopathy, lumbar region (principal)
CPT/HCPCS: 72148

== ENCOUNTER 2018-01-18 08:12 | Emergency (ER) | payer BC, OTHER ==
[2018-01-18] MEDS ORDERED: SODIUM CHLORIDE 0.9% 1,000 ML IV STA (08:36)
[2018-01-18] MEDS ORDERED: RX INFO: IV CONTRAST WAS GIVEN 1 EACH MISC MISCELLANE PRN (08:36)
[2018-01-18] MEDS ORDERED: DICYCLOMINE 10 MG/ML 2 ML AMP IM STA (08:36)
--- NOTE | 2018-01-18 08:38 | ED ---
General Adult HPI - General Chief complaint: Abdominal Pain Stated complaint: stomach pain Time Seen by Provider: 01/18/18 08:23 Source: patient, RN notes reviewed Mode of arrival: ambulatory Limitations: no limitations - History of Present Illness Initial comments: 42-year-old female presents to the emergency department with a chief complaint of abdominal pain. Patient states she had some lower abdominal cramping yesterday she started menstrual cycle she thought was Patient States Status Extended up Her Abdomen. Patient Denies Any Nausea Vomiting Any Diarrhea with It. She Denies Any Fever Chills. She States Just Aches and. She States That She Was Concerned Maybe Something More Than Just Her IBS Pain or Her Pelvic Cramping so She Thought That She Should Be Seen. Patient denies any recent fever , chills, shortness of breath, chest pain, back pain, nausea vomiting, numbness or tingling, dysuria or hematuria, constipation or diarrhea, headaches or visual changes, or any other current symptoms. - Related Data Home Medications Medication Instructions Recorded Confirmed Dicyclomine HCl 20 mg PO QID PRN 05/03/17 06/21/17 Famotidine 40 mg PO DAILY 05/03/17 06/21/17 Gabapentin [Neurontin] 400 mg PO TID 05/03/17 06/21/17 Levothyroxine Sodium [Synthroid] 25 mcg PO DAILY 05/03/17 06/21/17 Metaxalone 800 mg PO TID 05/03/17 06/21/17 lamoTRIgine [LaMICtal] 100 mg PO DAILY 05/03/17 06/21/17 DULoxetine HCL [Cymbalta] 60 mg PO BID 05/07/17 06/21/17 Montelukast [Singulair] 10 mg PO HS 06/21/17 06/21/17 Previous Rx's Medication Instructions Recorded Baclofen [Lioresal] 5 mg PO Q6H PRN #30 tablet 06/23/17 Naproxen [Naprosyn] 250 mg PO BID #20 tab 06/23/17 Nicotine 21Mg/24Hr Patch [Habitrol] 1 patch TRANSDERM DAILY patch 06/23/17 predniSONE 50 mg PO DAILY #5 tab 01/18/18 Allergies Allergy/AdvReac Type Severity Reaction Status Date / Time cefaclor [facility] Allergy Anaphylaxis Verified 01/18/18 08:22 Review of Systems ROS Statement: Those systems with pertinent positive or pertinent negative responses have been documented in the HPI. ROS Other: All systems not noted in ROS Statement are negative. Past Medical History Past Medical History: Fibromyalgia, Thyroid Disorder Additional Past Medical History / Comment(s): IBS, CYST RIGHT BREAST History of Any Multi-Drug Resistant Organisms: MRSA Date of last positivie culture/infection: 2009 MDRO Source:: GROIN Past Surgical History: Cholecystectomy Additional Past Surgical History / Comment(s): U/S GUIDED BREAST BX, NECK FUSION , SINUS X2, I&D Past Anesthesia/Blood Transfusion Reactions: Postoperative Nausea & Vomiting ( PONV) Past Psychological History: Bipolar, Depression Smoking Status: Current every day smoker Past Alcohol Use History: Occasional Past Drug Use History: Marijuana - Past Family History Father Family Medical History: Cancer Additional Family Medical History / Comment(s): SKIN General Exam - General Exam Comments Initial Comments: General: The patient is awake and alert, in no distress, and does not appear acutely ill. Eye: Pupils are equal, round and reactive to light, extra-ocular movements are intact; there is normal conjunctiva bilaterally. No signs of icterus. Ears, nose, mouth and throat: There are moist mucous membranes. Neck: The neck is supple, there is no tenderness. Cardiovascular: There is a regular rate and rhythm. No murmur, rub or gallop is appreciated. Respiratory: Lungs are clear to auscultation, respirations are non-labored, breath sounds are equal. No wheezes, stridor, rales, or rhonchi. Gastrointestinal: Soft, non-distended, mild bilateral lower quadrant tenderness of the abdomen without masses or organomegaly noted. There is no rebound or guarding present. No CVA tenderness. Bowel sounds are unremarkable. Back: There is no tenderness to palpation in the midline. There is no obvious deformity. No rashes noted. Musculoskeletal: Normal ROM, no tenderness, There is no pedal edema. There is no calf tenderness or swelling. Sensation intact. Pulses equal bilaterally 2+. Neurological: CN II-XII intact, There are no obvious motor or sensory deficits. Coordination appears grossly intact. Speech is normal. Skin: Skin is warm and dry and no rashes or lesions are noted. Psychiatric: Cooperative, appropriate mood & affect, normal judgment. Limitations: no limitations Course Vital Signs 01/18/18 08:21 Temperature 98.4 F Pulse Rate 96 Respiratory 20 Rate Blood Pressure 110/77 O2 Sat by Pulse 99 Oximetry Medical Decision Making - Medical Decision Making 42-year-old female presents to the emergency department with a chief complaint of lower abdominal pain. At this time CAT scan is reviewed that is showing colitis. We will start patient on steroids for home. We did discuss follow-up with her doctor we gave her a GI doctor as well. We did thoroughly discuss return parameters all patient's questions. She stated that she understood and she is agreement this plan. All questions have been answered. At this time the patient will be discharged. - Lab Data Result diagrams: 01/18/18 08:45 01/18/18 08:45 Lab Results 01/18/18 01/18/18 01/18/18 Range/Units 08:45 08:45 08:45 WBC 15.1 H (3.8-10.6) k/uL RBC 4.46 (3.80-5.40) m/uL Hgb 13.3 (11.4-16.0) gm/dL Hct 39.2 (34.0-46.0) % MCV 87.9 (80.0-100.0) fL MCH 29.7 (25.0-35.0) pg MCHC 33.8 (31.0-37.0) g/dL RDW 12.6 (11.5-15.5) % Plt Count 258 (150-450) k/uL Neutrophils % 85 % Lymphocytes % 8 % Monocytes % 5 % Eosinophils % 1 % Basophils % 0 % Neutrophils # 12.8 H (1.3-7.7) k/uL Lymphocytes # 1.2 (1.0-4.8) k/uL Monocytes # 0.8 (0-1.0) k/uL Eosinophils # 0.2 (0-0.7) k/uL Basophils # 0.0 (0-0.2) k/uL Sodium 141 (137-145) mmol/L Potassium 3.7 (3.5-5.1) mmol/L Chloride 105 (98-107) mmol/L Carbon Dioxide 27 (22-30) mmol/L Anion Gap 9 mmol/L BUN 13 (7-17) mg/dL Creatinine 0.62 (0.52-1.04) mg/dL Est GFR (MDRD) Af Amer >60 (>60 ml/min/1.73 sqM) Est GFR (MDRD) Non-Af >60 (>60 ml/min/1.73 sqM) Glucose 97 (74-99) mg/dL Calcium 9.0 (8.4-10.2) mg/dL Total Bilirubin 0.6 (0.2-1.3) mg/dL AST 19 (14-36) U/L ALT 22 (9-52) U/L Alkaline Phosphatase 60 (38-126) U/L Total Protein 6.5 (6.3-8.2) g/dL Albumin 3.9 (3.5-5.0) g/dL Amylase 46 (30-110) U/L Lipase 45 (23-300) U/L Urine Color Urine Appearance (Clear) Urine pH (5.0-8.0) Ur Specific [place] (1.001-1.035) Urine Protein (Negative) Urine Glucose (UA) (Negative) Urine Ketones (Negative) Urine Blood (Negative) Urine Nitrite (Negative) Urine Bilirubin (Negative) Urine Urobilinogen (<2.0) mg/dL Ur Leukocyte Esterase (Negative) Urine RBC (0-5) /hpf Urine WBC (0-5) /hpf Ur Squamous Epith Cells (0-4) /hpf Urine Bacteria (None) /hpf Urine Mucus (None) /hpf Urine HCG, Qual Not Detected (Not Detectd) 01/18/18 Range/Units 08:45 WBC (3.8-10.6) k/uL RBC (3.80-5.40) m/uL Hgb (11.4-16.0) gm/dL Hct (34.0-46.0) % MCV (80.0-100.0) fL MCH (25.0-35.0) pg MCHC (31.0-37.0) g/dL RDW (11.5-15.5) % Plt Count (150-450) k/uL Neutrophils % % Lymphocytes % % Monocytes % % Eosinophils % % Basophils % % Neutrophils # (1.3-7.7) k/uL Lymphocytes # (1.0-4.8) k/uL Monocytes # (0-1.0) k/uL Eosinophils # (0-0.7) k/uL Basophils # (0-0.2) k/uL Sodium (137-145) mmol/L Potassium (3.5-5.1) mmol/L Chloride (98-107) mmol/L Carbon Dioxide (22-30) mmol/L Anion Gap mmol/L BUN (7-17) mg/dL Creatinine (0.52-1.04) mg/dL Est GFR (MDRD) Af Amer (>60 ml/min/1.73 sqM) Est GFR (MDRD) Non-Af (>60 ml/min/1.73 sqM) Glucose (74-99) mg/dL Calcium (8.4-10.2) mg/dL Total Bilirubin (0.2-1.3) mg/dL AST (14-36) U/L ALT (9-52) U/L Alkaline Phosphatase (38-126) U/L Total Protein (6.3-8.2) g/dL Albumin (3.5-5.0) g/dL Amylase (30-110) U/L Lipase (23-300) U/L Urine Color Yellow Urine Appearance Cloudy H (Clear) Urine pH 6.5 (5.0-8.0) Ur Specific [place] 1.013 (1.001-1.035) Urine Protein Negative (Negative) Urine Glucose (UA) Negative (Negative) Urine Ketones Negative (Negative) Urine Blood Small H (Negative) Urine Nitrite Negative (Negative) Urine Bilirubin Negative (Negative) Urine Urobilinogen <2.0 (<2.0) mg/dL Ur Leukocyte Esterase Negative (Negative) Urine RBC <1 (0-5) /hpf Urine WBC 1 (0-5) /hpf Ur Squamous Epith Cells 6 H (0-4) /hpf Urine Bacteria Occasional H (None) /hpf Urine Mucus Rare H (None) /hpf Urine HCG, Qual (Not Detectd) - Radiology Data Radiology results: report reviewed, image reviewed Disposition Clinical Impression: Colitis Disposition: HOME SELF-CARE Condition: Stable Instructions: Colitis (ED) Additional Instructions: Please use medication as discussed. Please follow up with family doctor if symptoms have not improved over the next two days. Please return to the emergency room if your symptoms increase or worsen or for any other concerns. Prescriptions: predniSONE 50 mg PO DAILY #5 tab Referrals: Gabriel Ponce MD [Primary Care Provider] - 1-2 days Bret Hoover MD [STAFF PHYSICIAN] - 1-2 days Time of Disposition: 10:34
[2018-01-18 08:56] LABS: Basophils % (A) 0 %; Eosinophils # (A) 0.2 k/uL (0-0.7); Eosinophils % (A) 1 %; HCT 39.2 % (34.0-46.0); HGB 13.3 gm/dL (11.4-16.0); Lymphocytes # (A) 1.2 k/uL (1.0-4.8); Lymphocytes % (A) 8 %; MCH 29.7 pg (25.0-35.0); MCHC 33.8 g/dL (31.0-37.0); MCV 87.9 fL (80.0-100.0); Mean Platelet Volume 7.3; Monocytes # (A) 0.8 k/uL (0-1.0); Monocytes % (A) 5 %; Neutrophils # (A) 12.8 k/uL (1.3-7.7); Neutrophils % (A) 85 %; Platelet Count 258 k/uL (150-450); RBC 4.46 m/uL (3.80-5.40); RDW 12.6 % (11.5-15.5); WBC 15.1 k/uL (3.8-10.6)
[2018-01-18 09:05] LABS: ALT 22 U/L (9-52); AST 19 U/L (14-36); Albumin 3.9 g/dL (3.5-5.0); Alkaline Phosphatase 60 U/L (38-126); Amylase 46 U/L (30-110); Anion Gap 9 mmol/L; Blood Urea Nitrogen 13 mg/dL (7-17); Carbon Dioxide 27 mmol/L (22-30); Chloride 105 mmol/L (98-107); Glucose 97 mg/dL (74-99); Lipase 45 U/L (23-300); Potassium 3.7 mmol/L (3.5-5.1); Sodium 141 mmol/L (137-145); Total Bilirubin 0.6 mg/dL (0.2-1.3); Total Protein 6.5 g/dL (6.3-8.2)
[2018-01-18 09:06] LABS: Appearance,Urine Cloudy (Clear); Bacteria,Urine Occasional /hpf; Bilirubin,Urine Negative (Negative); Blood,Urine Small (Negative); Color,Urine Yellow; Glucose,Urine (UA) Negative (Negative); Ketones,Urine Negative (Negative); Leukocyte Esterase,Urine Negative (Negative); Mucus,Urine Rare /hpf; Nitrite,Urine Negative (Negative); PH, Urine 6.5 (5.0-8.0); Protein,Urine Negative (Negative); RBC,Urine <1 /hpf (0-5); Specific Gravity,Urine 1.013 (1.001-1.035); Squamous Epithelial Cell,Urine 6 /hpf (0-4); Urobilinogen,Urine <2.0 mg/dL (<2.0); WBC,Urine 1 /hpf (0-5)
--- NOTE | 2018-01-18 10:17 | CT ---
EXAMINATION TYPE: CT abdomen pelvis w con DATE OF EXAM: 01/18/2018 REFERENCE: Previous study dated 06/21/2017. HISTORY: Pain HISTORY: Abdominal pain for [address] DLP: 1310 mGy Automated exposure control for dose reduction was used. TECHNIQUE: Helical acquisition through the abdomen and pelvis was obtained following the oral ingesti on of without Oral Contrast and following intravenous administration of 100 ml mL of Omnipaque 300. T he data was reformatted in axial, coronal and sagittal projections. FINDINGS: There is mild interlobular septal thickening throughout the visualized portions of the laurie gs likely reflecting chronic interstitial change. There is no pleural or pericardial fluid. The heart is not enlarged. Within the abdomen, the gallbladder has been removed. Liver and spleen are normal. Both adrenal glands are normal. Tiny exophytic lesion seen arising from the posterior aspect of the left kidney is less clearly evide nt on today's examination and is stable measuring 1.5 cm. The kidneys otherwise appear morphologicall y normal. The pancreas is unremarkable. There is no significant retroperitoneal, iliac or inguinal adenopathy. The bladder is unremarkable. There is follicular change in both ovaries. There is a 3 cm left ovarian cyst. The uterus appears nor mal. There is no significant diverticular change and there is no radiographic evidence of diverticulitis. There is mucosal thickening involving the transverse and ascending colons. The appendix is not visual ized with certainty. Small bowel loops are normal in caliber. There is scant free fluid and no free air. There is a stable, sclerotic focus in the posterior left iliac bone. This is stable when compared to previous. No bony destructive lesion is seen. IMPRESSION: 1. THICKENING OF THE MUCOSA OF THE TRANSVERSE COLON. PLEASE CORRELATE FOR COLITIS. 2. 3 CM, LEFT ADNEXAL CYST. 3. CHANGES CONSISTENT WITH MILD INTERSTITIAL LUNG DISEASE. 4. STABLE, EXOPHYTIC LEFT RENAL LESION.
[2018-01-18] MEDS ORDERED: KETOROLAC 30 MG/ML 1 ML VIAL IVP STA (10:21)
[2018-01-18 10:49] VITALS: BP 125/76; PULSE 80; RESP 16; TEMP 97.2
== END 2018-01-18 10:50 | disposition home or self-care (01) ==
LOC: EC 08:12
DX: K52.9 Noninfective gastroenteritis and colitis, unspecified (principal); M79.7 Fibromyalgia; E07.9 Disorder of thyroid, unspecified; K58.9 Irritable bowel syndrome, unspecified; F31.9 Bipolar disorder, unspecified; Z79.899 Other long term (current) drug therapy; Z86.14 Personal history of Methicillin resistant Staphylococcus aureus infection; Z90.49 Acquired absence of other specified parts of digestive tract; Z88.1 Allergy status to other antibiotic agents
CPT/HCPCS: 36415; 80053; 82150; 83690; 85025; 81001; 81025; 87086; 74177; 99284; 96374; 96361 ×2; 96372; J0500; J1885; Q9967

== ENCOUNTER 2018-01-21 16:41 | Emergency (ER) | payer OTHER ==
[2018-01-21] MEDS ORDERED: SODIUM CHLORIDE 0.9% 1,000 ML IV STA (17:18)
[2018-01-21] MEDS ORDERED: METOCLOPRAMIDE 5 MG/ML 2 ML VIAL IVP STA (17:18)
[2018-01-21] MEDS ORDERED: diphenhydrAMINE 50 MG/ML 1 ML VIAL IVP STA (17:18)
[2018-01-21] MEDS ORDERED: KETOROLAC 30 MG/ML 1 ML VIAL IVP STA (17:19)
[2018-01-21] MEDS ORDERED: LABETALOL 5 MG/ML VIAL MDV IVP STA (17:20)
--- NOTE | 2018-01-21 17:27 | ED ---
Recheck HPI - General Chief Complaint: Recheck/Abnormal Lab/Rx Stated Complaint: Headache, Heart Racing, poss reaction from med Time Seen by Provider: 01/21/18 17:04 Source: patient, RN notes reviewed, old records reviewed Mode of arrival: ambulatory Limitations: no limitations - History of Present Illness Initial Comments: 42-year-old female presents emergency department today chief complaint of headache, chest pain. She reports that she was diagnosed with colitis approximate 4 days ago and was started on steroids. She reports that she's taken 3 doses of steroids but has noticed that her blood pressure is been elevated she felt like her heart was racing. She states that she did not take the dose of steroids today and reports that her symptoms are somewhat diminishing but she still complains of a headache. Patient states that she has no history of high blood pressure. Patient reports that she has some improvement of her abdominal pain. She has had some diarrhea but denies any blood in the stools. Patient denies any recent fever, chills, shortness of breath, back pain, abdominal pain, nausea vomiting, numbness or tingling, dysuria or hematuria, constipation or diarrhea, headaches or visual changes, or any other current symptoms - Related Data Home Medications Medication Instructions Recorded Confirmed Gabapentin [Neurontin] 400 mg PO TID 05/03/17 01/21/18 Levothyroxine Sodium [Synthroid] 25 mcg PO DAILY 05/03/17 01/21/18 lamoTRIgine [LaMICtal] 100 mg PO DAILY 05/03/17 01/21/18 Aspirin 650 mg PO DAILY 01/21/18 01/21/18 C Naltrexone 4.5mg 1 cap PO HS 01/21/18 01/21/18 Cyclobenzaprine [Flexeril] 5 mg PO TID 01/21/18 01/21/18 Ibuprofen [Motrin Ib] 800 mg PO Q6H PRN 01/21/18 01/21/18 Mirtazapine [Remeron] 15 mg PO HS 01/21/18 01/21/18 Ranitidine HCl [Zantac] 150 mg PO BID 01/21/18 01/21/18 Ziprasidone [Geodon] 40 mg PO BID 01/21/18 01/21/18 Allergies Allergy/AdvReac Type Severity Reaction Status Date / Time cefaclor [From [facility]] Allergy Anaphylaxis Verified 01/21/18 17:20 Review of Systems ROS Statement: Those systems with pertinent positive or pertinent negative responses have been documented in the HPI. ROS Other: All systems not noted in ROS Statement are negative. Past Medical History Past Medical History: Fibromyalgia, Thyroid Disorder Additional Past Medical History / Comment(s): IBS, CYST RIGHT BREAST History of Any Multi-Drug Resistant Organisms: MRSA Date of last positivie culture/infection: 2009 MDRO Source:: GROIN Past Surgical History: Cholecystectomy Additional Past Surgical History / Comment(s): U/S GUIDED BREAST BX, NECK FUSION , SINUS X2, I&D Past Anesthesia/Blood Transfusion Reactions: Postoperative Nausea & Vomiting ( PONV) Past Psychological History: Bipolar, Depression Smoking Status: Current every day smoker Past Alcohol Use History: Occasional Past Drug Use History: Marijuana - Past Family History Father Family Medical History: Cancer Additional Family Medical History / Comment(s): SKIN General Exam - General Exam Comments Initial Comments: This patient is a 42-year-old female. No distress. Limitations: no limitations General appearance: alert, in no apparent distress Head exam: Present: atraumatic, normocephalic, normal inspection Eye exam: Present: normal appearance, PERRL, EOMI. Absent: scleral icterus, conjunctival injection, periorbital swelling ENT exam: Present: normal exam, mucous membranes moist Neck exam: Present: normal inspection. Absent: tenderness, meningismus, lymphadenopathy Respiratory exam: Present: normal lung sounds bilaterally. Absent: respiratory distress, wheezes, rales, rhonchi, stridor Cardiovascular Exam: Present: regular rate, normal rhythm, normal heart sounds. Absent: systolic murmur, diastolic murmur, rubs, gallop, clicks GI/Abdominal exam: Present: soft, normal bowel sounds, other (No abdominal tenderness.). Absent: distended, tenderness, guarding, rebound, rigid Extremities exam: Present: normal inspection, full ROM, normal capillary refill. Absent: tenderness, pedal edema, joint swelling, calf tenderness Back exam: Present: normal inspection Neurological exam: Present: alert, oriented X3, CN II-XII intact Psychiatric exam: Present: normal affect, normal mood Skin exam: Present: warm, dry, intact, normal color. Absent: rash Course Vital Signs 01/21/18 01/21/18 01/21/18 16:59 17:59 18:37 Temperature 98.3 F Pulse Rate 92 72 79 Respiratory 20 18 18 Rate Blood Pressure 179/95 156/94 159/99 O2 Sat by Pulse 100 100 100 Oximetry 01/21/18 01/21/18 19:11 19:36 Temperature 97.3 F L Pulse Rate 67 Respiratory 18 Rate Blood Pressure 139/89 O2 Sat by Pulse 97 Oximetry Medical Decision Making - Medical Decision Making This patient is a 42-year-old female presents emergency room today chief complaint of some chest discomfort and high blood pressure and a headache. She reports that this is related to steroids that she is placed on 4 days ago for colitis. She reports that her abdominal pain is getting better at this time. Patient states that she's not had a history of reactions to steroids in the past. Patient arrived initially hypertensive 179/100. Blood pressure was retaken and was 159/65. Patient has no previous history of hypertension. Patient was given migraine cocktail, fluids labwork obtained. Patient's labwork was reviewed and all within normal limits. There is a decrease in white blood cell count compared to previous visit. Patient informed of these results. Patient reports that her headache is diminished as her blood pressures went down. Patient advised to discontinue steroid at this time. I discussed following up with primary care provider regards to initial visit for colitis. Patient reports that she feels well and would like to go home. Return parameters were discussed. - Lab Data Result diagrams: 01/21/18 17:38 01/21/18 17:38 Lab Results 01/21/18 01/21/18 01/21/18 Range/Units 17:38 17:38 17:38 WBC 11.4 H (3.8-10.6) k/uL RBC 4.50 (3.80-5.40) m/uL Hgb 13.1 (11.4-16.0) gm/dL Hct 39.3 (34.0-46.0) % MCV 87.4 (80.0-100.0) fL MCH 29.1 (25.0-35.0) pg MCHC 33.3 (31.0-37.0) g/dL RDW 12.6 (11.5-15.5) % Plt Count 339 (150-450) k/uL Neutrophils % 60 % Lymphocytes % 32 % Monocytes % 5 % Eosinophils % 1 % Basophils % 1 % Neutrophils # 6.9 (1.3-7.7) k/uL Lymphocytes # 3.6 (1.0-4.8) k/uL Monocytes # 0.5 (0-1.0) k/uL Eosinophils # 0.1 (0-0.7) k/uL Basophils # 0.1 (0-0.2) k/uL PT 9.5 (9.0-12.0) sec INR 0.9 (<1.2) APTT 22.7 (22.0-30.0) sec Sodium 143 (137-145) mmol/L Potassium 3.6 (3.5-5.1) mmol/L Chloride 106 (98-107) mmol/L Carbon Dioxide 28 (22-30) mmol/L Anion Gap 9 mmol/L BUN 12 (7-17) mg/dL Creatinine 0.65 (0.52-1.04) mg/dL Est GFR (MDRD) Af Amer >60 (>60 ml/min/1.73 sqM) Est GFR (MDRD) Non-Af >60 (>60 ml/min/1.73 sqM) Glucose 77 (74-99) mg/dL Calcium 9.4 (8.4-10.2) mg/dL Total Bilirubin 0.2 (0.2-1.3) mg/dL AST 20 (14-36) U/L ALT 20 (9-52) U/L Alkaline Phosphatase 59 (38-126) U/L Troponin I (0.000-0.034) ng/mL Total Protein 6.6 (6.3-8.2) g/dL Albumin 3.8 (3.5-5.0) g/dL Urine Color Urine Appearance (Clear) Urine pH (5.0-8.0) Ur Specific [place] (1.001-1.035) Urine Protein (Negative) Urine Glucose (UA) (Negative) Urine Ketones (Negative) Urine Blood (Negative) Urine Nitrite (Negative) Urine Bilirubin (Negative) Urine Urobilinogen (<2.0) mg/dL Ur Leukocyte Esterase (Negative) Urine RBC (0-5) /hpf Ur Squamous Epith Cells (0-4) /hpf Urine Bacteria (None) /hpf Urine Opiates Screen (NotDetected) Ur Oxycodone Screen (NotDetected) Urine Methadone Screen (NotDetected) Ur Propoxyphene Screen (NotDetected) Ur Barbiturates Screen (NotDetected) U Tricyclic Antidepress (NotDetected) Ur Phencyclidine Scrn (NotDetected) Ur Amphetamines Screen (NotDetected) U Methamphetamines Scrn (NotDetected) U Benzodiazepines Scrn (NotDetected) Urine Cocaine Screen (NotDetected) U Marijuana (THC) Screen (NotDetected) 01/21/18 01/21/18 01/21/18 Range/Units 17:38 17:38 17:47 WBC (3.8-10.6) k/uL RBC (3.80-5.40) m/uL Hgb (11.4-16.0) gm/dL Hct (34.0-46.0) % MCV (80.0-100.0) fL MCH (25.0-35.0) pg MCHC (31.0-37.0) g/dL RDW (11.5-15.5) % Plt Count (150-450) k/uL Neutrophils % % Lymphocytes % % Monocytes % % Eosinophils % % Basophils % % Neutrophils # (1.3-7.7) k/uL Lymphocytes # (1.0-4.8) k/uL Monocytes # (0-1.0) k/uL Eosinophils # (0-0.7) k/uL Basophils # (0-0.2) k/uL PT (9.0-12.0) sec INR (<1.2) APTT (22.0-30.0) sec Sodium (137-145) mmol/L Potassium (3.5-5.1) mmol/L Chloride (98-107) mmol/L Carbon Dioxide (22-30) mmol/L Anion Gap mmol/L BUN (7-17) mg/dL Creatinine (0.52-1.04) mg/dL Est GFR (MDRD) Af Amer (>60 ml/min/1.73 sqM) Est GFR (MDRD) Non-Af (>60 ml/min/1.73 sqM) Glucose (74-99) mg/dL Calcium (8.4-10.2) mg/dL Total Bilirubin (0.2-1.3) mg/dL AST (14-36) U/L ALT (9-52) U/L Alkaline Phosphatase (38-126) U/L Troponin I <0.012 (0.000-0.034) ng/mL Total Protein (6.3-8.2) g/dL Albumin (3.5-5.0) g/dL Urine Color Colorless Urine Appearance Clear (Clear) Urine pH 7.0 (5.0-8.0) Ur Specific [place] 1.002 (1.001-1.035) Urine Protein Negative (Negative) Urine Glucose (UA) Negative (Negative) Urine Ketones Negative (Negative) Urine Blood Moderate H (Negative) Urine Nitrite Negative (Negative) Urine Bilirubin Negative (Negative) Urine Urobilinogen <2.0 (<2.0) mg/dL Ur Leukocyte Esterase Negative (Negative) Urine RBC <1 (0-5) /hpf Ur Squamous Epith Cells 2 (0-4) /hpf Urine Bacteria Occasional H (None) /hpf Urine Opiates Screen Not Detected (NotDetected) Ur Oxycodone Screen Not Detected (NotDetected) Urine Methadone Screen Not Detected (NotDetected) Ur Propoxyphene Screen Not Detected (NotDetected) Ur Barbiturates Screen Not Detected (NotDetected) U Tricyclic Antidepress Not Detected (NotDetected) Ur Phencyclidine Scrn Not Detected (NotDetected) Ur Amphetamines Screen Not Detected (NotDetected) U Methamphetamines Scrn Not Detected (NotDetected) U Benzodiazepines Scrn Not Detected (NotDetected) Urine Cocaine Screen Not Detected (NotDetected) U Marijuana (THC) Screen Detected H (NotDetected) 01/21/18 19:10 EKG was reviewed and shows normal sinus rhythm, ventricular rate of 66 bpm. IN interval 18 ms. QRS ration once 2 ms. QTQTC is 394/413 ms. No evidence of ST elevation or T-wave inversion. No FH or ventricular arrhythmias. - Radiology Data Radiology results: report reviewed Chest x-ray is normal, heart mediastinum are within normal limits. Lungs are clear. No hilar masses. No pleural effusion. Disposition Clinical Impression: Medication reaction, Headache Disposition: HOME SELF-CARE Condition: Good Instructions: Acute Headache (ED) Additional Instructions: Patient is follow-up with primary care provider. Return to the emergency department if any alarming signs or symptoms occur. Discontinue steroids. Increase her fluid intake. Please follow-up with a primary care provider in one to 2 days. Referrals: Gabriel Ponce MD [Primary Care Provider] - 1-2 days Time of Disposition: 19:20
[2018-01-21] MEDS ORDERED: SODIUM CHLORIDE 0.9% 1,000 ML IV SCH (17:30)
[2018-01-21 18:00] VITALS: RESP 18
[2018-01-21 18:08] LABS: Basophils # (A) 0.1 k/uL (0-0.2); Basophils % (A) 1 %; Eosinophils # (A) 0.1 k/uL (0-0.7); Eosinophils % (A) 1 %; HCT 39.3 % (34.0-46.0); HGB 13.1 gm/dL (11.4-16.0); Lymphocytes # (A) 3.6 k/uL (1.0-4.8); Lymphocytes % (A) 32 %; MCH 29.1 pg (25.0-35.0); MCHC 33.3 g/dL (31.0-37.0); MCV 87.4 fL (80.0-100.0); Mean Platelet Volume 7.7; Monocytes # (A) 0.5 k/uL (0-1.0); Monocytes % (A) 5 %; Neutrophils # (A) 6.9 k/uL (1.3-7.7); Neutrophils % (A) 60 %; Platelet Count 339 k/uL (150-450); RDW 12.6 % (11.5-15.5); WBC 11.4 k/uL (3.8-10.6)
[2018-01-21 18:09] LABS: Appearance,Urine Clear (Clear); Bacteria,Urine Occasional /hpf; Bilirubin,Urine Negative (Negative); Blood,Urine Moderate (Negative); Color,Urine Colorless; Glucose,Urine (UA) Negative (Negative); Ketones,Urine Negative (Negative); Leukocyte Esterase,Urine Negative (Negative); Protein,Urine Negative (Negative); RBC,Urine <1 /hpf (0-5); Specific Gravity,Urine 1.002 (1.001-1.035); Squamous Epithelial Cell,Urine 2 /hpf (0-4); Urobilinogen,Urine <2.0 mg/dL (<2.0)
[2018-01-21 18:11] LABS: ALT 20 U/L (9-52); AST 20 U/L (14-36); Albumin 3.8 g/dL (3.5-5.0); Alkaline Phosphatase 59 U/L (38-126); Anion Gap 9 mmol/L; Blood Urea Nitrogen 12 mg/dL (7-17); Calcium 9.4 mg/dL (8.4-10.2); Carbon Dioxide 28 mmol/L (22-30); Chloride 106 mmol/L (98-107); Glucose 77 mg/dL (74-99); Potassium 3.6 mmol/L (3.5-5.1); Sodium 143 mmol/L (137-145); Total Bilirubin 0.2 mg/dL (0.2-1.3); Total Protein 6.6 g/dL (6.3-8.2)
[2018-01-21 18:12] LABS: INR 0.9 (<1.2); Partial Thromboplastin Time 22.7 sec (22.0-30.0); Prothrombin Time 9.5 sec (9.0-12.0)
--- NOTE | 2018-01-21 18:51 | XR ---
EXAMINATION TYPE: XR chest 2V DATE OF EXAM: 01/21/2018 COMPARISON: NONE HISTORY: Palpitations and chest pain TECHNIQUE: Frontal and lateral views of the chest are obtained. FINDINGS: Heart and mediastinum are normal. Lungs are clear of consolidation. There are no hilar mas ses. Bony thorax is intact. There are chest leads. There is no pleural effusion. IMPRESSION: Normal chest
[2018-01-21 19:11] VITALS: BP 139/89; PULSE 67
[2018-01-21 19:31] LABS: Amphetamine Screen,Urine Not Detected (NotDetected); Barbiturate Screen,Urine Not Detected (NotDetected); Benzodiazepines Screen,Urine Not Detected (NotDetected); Cocaine Screen,Urine Not Detected (NotDetected); Methadone Screen, Urine Not Detected (NotDetected); Opiate Screen,Urine Not Detected (NotDetected); Oxycodone Screen, Urine Not Detected (NotDetected); Phencyclidine Screen,Urine Not Detected (NotDetected); Tricyclic Antidepressant,Urine Not Detected (NotDetected); Urn Cannabinoid Scrn Detected (NotDetected)
[2018-01-21 19:38] VITALS: TEMP 97.3
== END 2018-01-21 19:38 | disposition home or self-care (01) ==
LOC: EC 16:41
DX: R51 Headache (principal); T38.0X5A Adverse effect of glucocorticoids and synthetic analogues, initial encounter; D72.819 Decreased white blood cell count, unspecified; K52.9 Noninfective gastroenteritis and colitis, unspecified; R07.89 Other chest pain; E07.9 Disorder of thyroid, unspecified; M79.7 Fibromyalgia; F31.9 Bipolar disorder, unspecified; F17.200 Nicotine dependence, unspecified, uncomplicated; Z79.82 Long term (current) use of aspirin; Z79.899 Other long term (current) drug therapy; Z88.1 Allergy status to other antibiotic agents; Z86.14 Personal history of Methicillin resistant Staphylococcus aureus infection; Z90.49 Acquired absence of other specified parts of digestive tract; Z53.8 Procedure and treatment not carried out for other reasons
CPT/HCPCS: 99285; 96374; 96375 ×2; 96361; 36415; 93005; 80053; 84484; 85025; 85610; 85730; 81001; 80306; 71046; J1200; J2765; J1885

== ENCOUNTER → 2018-01-22 | Outpatient (CLI) | payer OTHER ==
--- NOTE | 2018-01-22 15:57 | US ---
EXAMINATION TYPE: US kidneys/renal and bladder DATE OF EXAM: 01/22/2018 COMPARISON: CT 2018 CLINICAL HISTORY: N28.1 Cyst Of Kidney. Left renal cyst seen on previous CT EXAM MEASUREMENTS: Right Kidney: 11.0 x 4.9 x 5.4 cm Left Kidney: 11.3 x 5.3 x 5.1 cm Right Kidney: wnl Left Kidney: mid/superior pole 1.9 x 1.4 x 1.4cm hypoechoic area causing slight bulging/lobulation of kidney contour, possible area seen on previous CT, no other cysts or masses seen at this time. Bladder: wnl Bilateral Jets seen: yes There is no evidence for hydronephrosis at this point in time. No nephrolithiasis is seen. No kenzie s are identified. The urinary bladder is anechoic. Bilateral ureteral jets are seen. IMPRESSION: Masslike area mid pole left kidney posteriorly persists. Malignancy is not excluded.
== END | disposition home or self-care (01) ==
LOC: RADUSWWP 14:52
PROVIDERS: ATTEND Urology
DX: N28.89 Other specified disorders of kidney and ureter (principal)
CPT/HCPCS: 76770

== ENCOUNTER 2018-02-03 06:27 | Inpatient (IN) | payer OTHER ==
[2018-02-03] MEDS ORDERED: ONDANSETRON 4 MG/2 ML VIAL IVP STA (07:03)
[2018-02-03] MEDS ORDERED: SODIUM CHLORIDE 0.9% 2,000 ML IV STA (07:03)
[2018-02-03 07:19] LABS: Basophils % (A) 0 %; Eosinophils # (A) 0.3 k/uL (0-0.7); Eosinophils % (A) 1 %; HCT 46.8 % (34.0-46.0); HGB 15.6 gm/dL (11.4-16.0); Lymphocytes # (A) 0.9 k/uL (1.0-4.8); Lymphocytes % (A) 4 %; MCH 29.1 pg (25.0-35.0); MCHC 33.3 g/dL (31.0-37.0); MCV 87.3 fL (80.0-100.0); Mean Platelet Volume 8.1; Monocytes # (A) 0.8 k/uL (0-1.0); Monocytes % (A) 3 %; Neutrophils # (A) 20.7 k/uL (1.3-7.7); Neutrophils % (A) 91 %; Platelet Count 362 k/uL (150-450); RBC 5.36 m/uL (3.80-5.40); RDW 12.9 % (11.5-15.5); WBC 22.8 k/uL (3.8-10.6)
--- NOTE | 2018-02-03 07:20 | ED ---
Nausea/Vomiting/Diarrhea HPI - General Chief complaint: Nausea/Vomiting/Diarrhea Stated complaint: NVD Time Seen by Provider: 02/03/18 07:02 Source: patient, RN notes reviewed Mode of arrival: ambulatory Limitations: no limitations - History of Present Illness Initial comments: This is a 42-year-old female presents emergency Department with chief complaint nausea vomiting. Patient states she saw her PCP on Saturday for abdominal discomfort was diagnosed constipation by x-ray. Patient states that she's been having liquid stool. She did admit that she was given medications for her constipation. Patient states that hour prior arrival she started vomiting and she had some severe abdominal discomfort. Patient states she's had a prior cholecystectomy in the past does not remember who the surgeon was. Denies any dysuria, hematuria, chance , vaginal bleeding or vaginal discharge. - Related Data Home Medications Medication Instructions Recorded Confirmed Gabapentin [Neurontin] 400 mg PO TID 05/03/17 02/03/18 Levothyroxine Sodium [Synthroid] 25 mcg PO DAILY 05/03/17 02/03/18 lamoTRIgine [LaMICtal] 100 mg PO DAILY 05/03/17 02/03/18 C Naltrexone 4.5mg 1 cap PO HS 01/21/18 02/03/18 Cyclobenzaprine [Flexeril] 5 mg PO TID 01/21/18 02/03/18 Ibuprofen [Motrin Ib] 800 mg PO Q6H PRN 01/21/18 02/03/18 Mirtazapine [Remeron] 15 mg PO HS 01/21/18 02/03/18 Ranitidine HCl [Zantac] 150 mg PO BID 01/21/18 02/03/18 Ziprasidone [Geodon] 40 mg PO BID 01/21/18 02/03/18 Allergies Allergy/AdvReac Type Severity Reaction Status Date / Time cefaclor [From Ceclor] Allergy Anaphylaxis Verified 02/03/18 07:36 prednisone Allergy Rapid Verified 02/03/18 07:36 Heart Rate Review of Systems ROS Statement: Those systems with pertinent positive or pertinent negative responses have been documented in the HPI. ROS Other: All systems not noted in ROS Statement are negative. Past Medical History Past Medical History: Fibromyalgia, Thyroid Disorder Additional Past Medical History / Comment(s): IBS, CYST RIGHT BREAST, History of Any Multi-Drug Resistant Organisms: MRSA Date of last positivie culture/infection: 2009 MDRO Source:: GROIN Past Surgical History: Cholecystectomy Additional Past Surgical History / Comment(s): U/S GUIDED BREAST BX, NECK FUSION , SINUS X2, I&D Past Anesthesia/Blood Transfusion Reactions: Postoperative Nausea & Vomiting ( PONV) Past Psychological History: Bipolar, Depression Smoking Status: Current every day smoker Past Alcohol Use History: Occasional Past Drug Use History: Marijuana - Past Family History Father Family Medical History: Cancer Additional Family Medical History / Comment(s): SKIN General Exam Limitations: no limitations General appearance: alert, in no apparent distress Head exam: Present: atraumatic, normocephalic, normal inspection Neck exam: Present: normal inspection, full ROM. Absent: tenderness, meningismus, lymphadenopathy Respiratory exam: Present: normal lung sounds bilaterally. Absent: respiratory distress, wheezes, rales, rhonchi, stridor Cardiovascular Exam: Present: normal rhythm, tachycardia, normal heart sounds. Absent: systolic murmur, diastolic murmur, rubs, gallop, clicks GI/Abdominal exam: Present: soft, tenderness (Mild lower abdominal), normal bowel sounds. Absent: distended, guarding, rebound, rigid Back exam: Absent: CVA tenderness (R), CVA tenderness (L) Neurological exam: Present: alert, oriented X3, CN II-XII intact Skin exam: Present: warm, dry, intact, normal color. Absent: rash Course Vital Signs 02/03/18 02/03/18 06:32 08:44 Temperature 97.2 F L 98.4 F Pulse Rate 115 H 99 Respiratory 18 16 Rate Blood Pressure 158/83 143/70 O2 Sat by Pulse 100 100 Oximetry Medical Decision Making - Lab Data Result diagrams: 02/03/18 07:00 02/03/18 07:00 Lab Results 02/03/18 02/03/18 02/03/18 Range/Units 07:00 07:00 07:00 WBC 22.8 H (3.8-10.6) k/uL RBC 5.36 (3.80-5.40) m/uL Hgb 15.6 (11.4-16.0) gm/dL Hct 46.8 H (34.0-46.0) % MCV 87.3 (80.0-100.0) fL MCH 29.1 (25.0-35.0) pg MCHC 33.3 (31.0-37.0) g/dL RDW 12.9 (11.5-15.5) % Plt Count 362 (150-450) k/uL Neutrophils % 91 % Lymphocytes % 4 % Monocytes % 3 % Eosinophils % 1 % Basophils % 0 % Neutrophils # 20.7 H (1.3-7.7) k/uL Lymphocytes # 0.9 L (1.0-4.8) k/uL Monocytes # 0.8 (0-1.0) k/uL Eosinophils # 0.3 (0-0.7) k/uL Basophils # 0.0 (0-0.2) k/uL Sodium 141 (137-145) mmol/L Potassium 4.2 (3.5-5.1) mmol/L Chloride 111 H (98-107) mmol/L Carbon Dioxide 15 L (22-30) mmol/L Anion Gap 15 mmol/L BUN 10 (7-17) mg/dL Creatinine 0.69 (0.52-1.04) mg/dL Est GFR (CKD-EPI)AfAm >90 (>60 ml/min/1.73 sqM) Est GFR (CKD-EPI)NonAf >90 (>60 ml/min/1.73 sqM) Glucose 148 H (74-99) mg/dL Plasma Lactic Acid Jose 2.6 H* (0.7-2.0) mmol/L Calcium 10.5 H (8.4-10.2) mg/dL Total Bilirubin 0.7 (0.2-1.3) mg/dL AST 23 (14-36) U/L ALT 25 (9-52) U/L Alkaline Phosphatase 106 (38-126) U/L Total Protein 7.9 (6.3-8.2) g/dL Albumin 4.6 (3.5-5.0) g/dL Amylase 46 (30-110) U/L Lipase 49 (23-300) U/L Urine Color Urine Appearance (Clear) Urine pH (5.0-8.0) Ur Specific [place] (1.001-1.035) Urine Protein (Negative) Urine Glucose (UA) (Negative) Urine Ketones (Negative) Urine Blood (Negative) Urine Nitrite (Negative) Urine Bilirubin (Negative) Urine Urobilinogen (<2.0) mg/dL Ur Leukocyte Esterase (Negative) Urine WBC (0-5) /hpf Ur Squamous Epith Cells (0-4) /hpf Urine Bacteria (None) /hpf Urine Mucus (None) /hpf Urine HCG, Qual (Not Detectd) 02/03/18 02/03/18 Range/Units 07:29 07:29 WBC (3.8-10.6) k/uL RBC (3.80-5.40) m/uL Hgb (11.4-16.0) gm/dL Hct (34.0-46.0) % MCV (80.0-100.0) fL MCH (25.0-35.0) pg MCHC (31.0-37.0) g/dL RDW (11.5-15.5) % Plt Count (150-450) k/uL Neutrophils % % Lymphocytes % % Monocytes % % Eosinophils % % Basophils % % Neutrophils # (1.3-7.7) k/uL Lymphocytes # (1.0-4.8) k/uL Monocytes # (0-1.0) k/uL Eosinophils # (0-0.7) k/uL Basophils # (0-0.2) k/uL Sodium (137-145) mmol/L Potassium (3.5-5.1) mmol/L Chloride (98-107) mmol/L Carbon Dioxide (22-30) mmol/L Anion Gap mmol/L BUN (7-17) mg/dL Creatinine (0.52-1.04) mg/dL Est GFR (CKD-EPI)AfAm (>60 ml/min/1.73 sqM) Est GFR (CKD-EPI)NonAf (>60 ml/min/1.73 sqM) Glucose (74-99) mg/dL Plasma Lactic Acid Jose (0.7-2.0) mmol/L Calcium (8.4-10.2) mg/dL Total Bilirubin (0.2-1.3) mg/dL AST (14-36) U/L ALT (9-52) U/L Alkaline Phosphatase (38-126) U/L Total Protein (6.3-8.2) g/dL Albumin (3.5-5.0) g/dL Amylase (30-110) U/L Lipase (23-300) U/L Urine Color Dark Brown Urine Appearance Turbid H (Clear) Urine pH 5.5 (5.0-8.0) Ur Specific [place] 1.025 (1.001-1.035) Urine Protein 2+ H (Negative) Urine Glucose (UA) Negative (Negative) Urine Ketones 1+ H (Negative) Urine Blood Negative (Negative) Urine Nitrite Negative (Negative) Urine Bilirubin Negative (Negative) Urine Urobilinogen <2.0 (<2.0) mg/dL Ur Leukocyte Esterase Small H (Negative) Urine WBC 6 H (0-5) /hpf Ur Squamous Epith Cells 46 H (0-4) /hpf Urine Bacteria Many H (None) /hpf Urine Mucus Many H (None) /hpf Urine HCG, Qual Not Detected (Not Detectd) Disposition Clinical Impression: Enterocolitis, Leukocytosis, Dehydration, Ovarian cyst, Abdominal pain, Diarrhea Disposition: ADMITTED IP TO THIS [facility] Condition: Fair Referrals: Gabriel Ponce MD [Primary Care Provider] - 1-2 days
[2018-02-03 07:30] LABS: ALT 25 U/L (9-52); AST 23 U/L (14-36); Albumin 4.6 g/dL (3.5-5.0); Alkaline Phosphatase 106 U/L (38-126); Amylase 46 U/L (30-110); Anion Gap 15 mmol/L; Blood Urea Nitrogen 10 mg/dL (7-17); Calcium 10.5 mg/dL (8.4-10.2); Carbon Dioxide 15 mmol/L (22-30); Chloride 111 mmol/L (98-107); Glucose 148 mg/dL (74-99); Lipase 49 U/L (23-300); Potassium 4.2 mmol/L (3.5-5.1); Sodium 141 mmol/L (137-145); Total Bilirubin 0.7 mg/dL (0.2-1.3); Total Protein 7.9 g/dL (6.3-8.2)
[2018-02-03 07:44] LABS: Appearance,Urine Turbid (Clear); Bacteria,Urine Many /hpf; Bilirubin,Urine Negative (Negative); Blood,Urine Negative (Negative); Color,Urine Dark Brown; Glucose,Urine (UA) Negative (Negative); Ketones,Urine 1+ (Negative); Leukocyte Esterase,Urine Small (Negative); Mucus,Urine Many /hpf; Nitrite,Urine Negative (Negative); PH, Urine 5.5 (5.0-8.0); Protein,Urine 2+ (Negative); Specific Gravity,Urine 1.025 (1.001-1.035); Squamous Epithelial Cell,Urine 46 /hpf (0-4); Urobilinogen,Urine <2.0 mg/dL (<2.0); WBC,Urine 6 /hpf (0-5)
--- NOTE | 2018-02-03 07:56 | XR ---
EXAMINATION TYPE: XR KUB DATE OF EXAM: 02/03/2018 7:50 AM CLINICAL HISTORY: Abdominal pain and diarrhea for 4 days with vomiting today TECHNIQUE: Single upright image of the abdomen is obtained. COMPARISON: None. FINDINGS: Scattered gas is seen in non-distended small bowel loops. Gas and fecal material is seen in non-distended colon. There is no visceromegaly, pneumoperitoneum, or abnormal calcification apprecia rebecca. Cholecystectomy clips reside within the right upper quadrant. The lung bases are clear and the o sseous structures are intact. Moderate femoral acetabular arthropathy is noted. IMPRESSION: Nonobstructive bowel gas pattern.
[2018-02-03] MEDS ORDERED: METOCLOPRAMIDE 5 MG/ML 2 ML VIAL IVP STA (08:00)
[2018-02-03] MEDS ORDERED: RX INFO: IV CONTRAST WAS GIVEN 1 EACH MISC MISCELLANE PRN (08:01)
--- NOTE | 2018-02-03 09:08 | CT ---
EXAMINATION TYPE: CT abdomen pelvis w con DATE OF EXAM: 02/03/2018 COMPARISON: 01/18/2018 and 06/21/2017. Also, renal ultrasound 01/22/2018. HISTORY: 42 year-old female with pelvic pain with diarrhea and vomiting TECHNIQUE: Contiguous axial scanning of the abdomen and pelvis following administration of 100 ml Omn ipaque 300 IV contrast. Delayed images through the kidneys and coronal/sagittal reconstructions perf ormed. CT DLP: 1176 mGycm Automated exposure control for dose reduction was used. FINDINGS: Heart normal size without pericardial effusion. Lung bases clear without pleural effusion. No focal liver lesions or biliary ductal dilatation. Portal venous system is patent. Cholecystectomy clips are present. There is an incidental dropped cholecystectomy clip anterior to the left hepatic l obe, unchanged. Adrenal glands, right kidney, and pancreas appear within normal limits. Calcified granuloma upper nkechi e of the spleen. Tiny subcentimeter hypodensity anterior left kidney, axial image [address] characteriza tion, probable tiny cyst. There is a 1.6 cm heterogeneous lesion cortical based posterior upper to midpole left kidney versus 1 .4 cm on 06/21/2017. Symmetric uptake and excretion of contrast from both kidneys. No dilated small bowel, free fluid, or free air. However, prominent fluid-filled small bowel loops ar e present in the mid and lower abdomen. Colon also shows liquid stool throughout and areas of mucosal hyperemia. Bladder incompletely distended. Uterus is visualized. Prominent left parauterine varices. Nonspecific , can be seen in the setting of pelvic congestion syndrome. Right ovary is visualized. Left ovary shows a complex cystic lesion measuring 4.1 cm versus 3.6 cm on 01/18/2018 and 2.9 cm on . Small amount of cul-de-sac free fluid is noted. Bones: Suggestion of mild early degenerative change at the hips. Stable sclerosis posterior left king c bone could represent a bone island. No osseous destructive process. IMPRESSION: 1. MILDLY COMPLEX CYST LEFT OVARY MEASURES 4.1 CM. THIS HAS CONTINUED TO GRADUALLY ENLARGE FROM 2016 WHERE IT MEASURED 2.9 CM. RECOMMEND PELVIC ULTRASOUND TO FURTHER EVALUATE. GYNECOLOGIC CONSULTAT ION ALSO RECOMMENDED A CYSTIC EPITHELIAL OVARIAN NEOPLASM IS NOT EXCLUDED AT THIS TIME. 2. 1.6 CM CORTICAL LESION POSTERIOR LEFT KIDNEY MEASURED 1.4 CM ON 06/21/2017. CONTINUED FOLLOW-UP IS RECOMMENDED TO ENSURE STABILITY. CONSIDER MRI IN 6 MONTHS WHICH WOULD ALSO PROVIDE FURTHER SOFT TISSU E CHARACTERIZATION. 3. PROMINENT FLUID-FILLED SMALL BOWEL LOOPS MID TO LOWER ABDOMEN AND LIQUID STOOL THROUGHOUT THE COLO N WITH MUCOSAL HYPEREMIA. CORRELATE FOR ENTEROCOLITIS.
[2018-02-03] MEDS ORDERED: MORPHINE SULFATE 4 MG/ML SYRINGE IVP ONE (09:16)
[2018-02-03] MEDS ORDERED: ONDANSETRON 4 MG/2 ML VIAL IVP PRN (09:22)
[2018-02-03] MEDS ORDERED: MORPHINE SULFATE 4 MG/ML SYRINGE IV PRN (09:22)
[2018-02-03] MEDS ORDERED: NALOXONE 0.4 MG/ML 1 ML VIAL IV PRN (09:22)
[2018-02-03] MEDS ORDERED: LEVOFLOXACIN 750MG-D5W PMX 750 MG in DEXTROSE/WATER 1 150ML.BAG IVPB STA (09:26)
[2018-02-03] MEDS ORDERED: metroNIDAZOLE-NS PMX 500 MG in SALINE 1 100ML.BAG IVPB STA (09:26)
[2018-02-03] MEDS ORDERED: SODIUM CHLORIDE 0.9% 1,000 ML IV SCH (09:30)
[2018-02-03] MEDS ORDERED: INFLUENZA VACCINE (6 MOS+) 60 MCG/0.5 ML SYRINGE IM ONE (10:03)
[2018-02-03] MEDS ORDERED: PNEUMOCOCCAL VACC-PNEUMOVAX 23 25 MCG/0.5 ML VIAL IM ONE (10:04)
[2018-02-03] MEDS: metroNIDAZOLE-NS PMX 500 MG in SALINE 1 100ML.BAG IVPB SCH (16:21)
--- NOTE | 2018-02-03 16:42 | CONS ---
CONSULTATION DATE OF CONSULTATION: 02/03/18. REQUESTING PHYSICIAN: Dr. Ponce REASON FOR CONSULTATION: Abdominal pain and diarrhea of 2 weeks duration. HISTORY OF PRESENT ILLNESS: The patient is a 42-year-old pleasant white female with history of irritable bowel syndrome, was admitted to the hospital because of acute onset of severe lower abdominal pain for the last 2 weeks duration. She started having diarrhea from 4-5 a day which are loose to watery in consistency and came to the emergency room about 2 weeks ago. She had a CT of the abdomen and pelvis done and was told she had colitis and was discharged home on oral steroids. She started the medications and became extremely sick. Stopped the medications. She continued to have persistent diarrhea. She saw Dr. Ponce on an outpatient basis and thought she was constipated and was given a prescription for Linzess. In the meantime, the diarrhea continued to progressively get worse and yesterday started having nausea, vomiting. She was having bowel movements anywhere from 10-15 a day which are loose to watery in consistency with no blood in the stool. Came to the emergency room and subsequently admitted for further evaluation. This morning she is feeling better. She had 2 bowel movements, still loose in consistency. Nausea, vomiting improved on a clear liquid diet, tolerating well. She did have a CT of the abdomen pelvis done that showed prominent fluid-filled small bowel loops, also liquid stool throughout the colon but no evidence of active colitis. She reports no fever, chills, night sweats. No recent antibiotic use. She was empirically started on Levaquin and Flagyl in the emergency room. PAST MEDICAL HISTORY: Significant for irritable bowel syndrome, hypothyroidism, anxiety, depression, gastroesophageal reflux disease. PAST SURGICAL HISTORY: Cholecystectomy, colonoscopy 4 years ago, neck fusion. MEDICATIONS: At home include Geodon, Lamictal, Flexeril, Neurontin, Synthroid Remeron, Zantac, Motrin. ALLERGIES: PREDNISONE AND CECLOR. SOCIAL HISTORY: Current smoker. No alcohol use. FAMILY HISTORY: Father had some kind of skin cancer. REVIEW OF SYSTEMS: Cardiopulmonary: No chest pain, shortness of breath. Genitourinary: No dysuria or hematuria. Musculoskeletal unremarkable. Skin unremarkable. Endocrine unremarkable. Psychiatric unremarkable. Neurology unremarkable. ENT vision unremarkable. Constitutional: No recent weight loss. No fever, chills, night sweats. PHYSICAL EXAMINATION: Appears comfortable, no apparent distress. Vital signs are stable. Blood pressure is 132/86, pulse rate 115, temperature 97.2. HEENT examination unremarkable. Conjunctivae pink. Sclerae anicteric. Oral cavity no lesions. Neck: No jugular venous distention or lymph node enlargement. Chest was clear to auscultation. HEART: Regular rate and rhythm. ABDOMEN: Soft. Bowel sounds are positive. No organomegaly. Extremities: No pedal edema. NEUROLOGIC: Alert and oriented x3. No focal deficits. LABS: WBC 22.8, hemoglobin 15.6, platelets are normal. Basic metabolic panel is within normal limits. ALT, AST, t-bilirubin and alkaline phosphatase are normal. IMPRESSION: This is a lady who presents to the hospital with acute onset of lower abdominal pain followed by nausea, vomiting, diarrhea for the last [address] scan showed prominent small bowel loops with fluid in the colon. Most likely we are dealing with infectious colitis. The patient on empiric Flagyl and Levaquin and the symptoms are already improving. RECOMMENDATIONS: 1. We will obtain stool studies. 2. Continue with empiric antibiotics. 3. Continue with a clear liquid diet for today and if symptoms improve, we will advance the diet as tolerated tomorrow. Thank you for this consultation. We will follow her closely during the hospital stay. MMODL / IJN: [id number] /
[2018-02-03] MEDS ORDERED: ACETAMINOPHEN TAB 500 MG TAB PO PRN (16:47)
[2018-02-03] MEDS ORDERED: PIPERACILLIN-TAZOBACTAM 3.375 GM in DEXTROSE/WATER 1 50ML.BAG IVPB SCH (17:15)
[2018-02-03] MEDS: CYCLOBENZAPRINE 5 MG TAB PO SCH ×2 (17:31→21:50)
[2018-02-03] MEDS: lamoTRIgine 100 MG TAB PO SCH (17:31)
[2018-02-03] MEDS: ENOXAPARIN 40 MG/0.4 ML SYRINGE SQ SCH (17:31)
[2018-02-03] MEDS: GABAPENTIN 400 MG CAP PO SCH ×2 (17:31→21:50)
[2018-02-03] MEDS: LEVOTHYROXINE 25 MCG TAB PO SCH (17:31)
--- NOTE | 2018-02-03 17:33 | HP ---
HISTORY AND PHYSICAL DATE OF ADMISSION: 02/03/2018. PRESENTING COMPLAINT: Diarrhea, lower abdominal pain. HISTORY OF PRESENTING COMPLAINT: This is a 42-year-old patient of Dr. Ponce. The patient's chronic stable medical conditions include chronic fibromyalgia, hypothyroidism, irritable bowel syndrome, bipolar disorder, chronic nicotine dependence. The patient presents with 2 weeks of increasing lower abdominal pain and diarrhea that has been fluctuating. Denies any obvious fever. Able to keep some food down. Sometimes with nausea. Did have a colonoscopy in the remote past. She did see her family doctor, was given Linzess with not much help. CT scan was done of the abdomen. The patient is feeling a bit better after getting antibiotics started in the ER. REVIEW OF SYSTEMS: CONSTITUTIONAL: Tired. HEENT: None. RESPIRATORY: None. CARDIOVASCULAR: None. GASTROINTESTINAL: As above with heartburn. GENITOURINARY: None. MUSCULOSKELETAL: Chronic pain in many joints. DERMATOLOGIC: None. HEMATOLOGIC: None. LYMPHATIC: None. PSYCHIATRY: Some anxiety. NEUROLOGIC: None. PAST MEDICAL HISTORY: Fibromyalgia, hypothyroid, irritable bowel syndrome, bipolar disorder. PAST SURGICAL HISTORY: Cholecystectomy, cervical spine fusion, sinus surgery. SOCIAL HISTORY: The patient lives with parents. Unemployed. Alcohol rarely. Does medical marijuana. Does smoke about a pack a day. FAMILY HISTORY: Skin cancer. HOME MEDICATIONS: 1. Lamictal 100 mg p.o. daily. 2. Geodon 40 mg b.i.d. 3. Zantac 150 mg p.o. b.i.d. 4. Remeron 50 mg p.o. at bedtime. 5. Synthroid 25 mcg p.o. daily. 6. Motrin 800 mg every 6 p.r.n. 7. Neurontin 4 mg p.o. t.i.d. 8. Flexeril 5 mg p.o. t.i.d. 9. 1 capsule p.o. at bedtime. ALLERGIES: CECLOR AND QUESTIONABLY TO PREDNISONE. PHYSICAL EXAMINATION: Temperature 97.2, pulse 115, respiratory rate 18, blood pressure 158/83, pulse ox 100% on room air. GENERAL APPEARANCE: Average build, sitting up, tired-appearing. EYES: Pupils equal. Conjunctivae normal. HEENT: External appearance of nose and ears normal. NECK: JVD not raised. Mass not palpable. Normal respiratory effort. LUNGS: Fair air entry. CARDIOVASCULAR: 1st and 2nd sounds normal. No edema. ABDOMEN: Lower abdominal tenderness. No guarding or rigidity. Soft. Bowel sounds are present. LYMPHATICS: No lymph node palpable. PSYCHIATRY: Alert and oriented x3. Mood and affect normal. NEUROLOGIC: Pupils clear. Cranial nerves grossly intact. Power and sensation grossly intact. INVESTIGATIONS: White count 22.8, hemoglobin 15.6, potassium 4.2. BUN and creatinine normal. C difficile negative. CT scan of the abdomen and pelvis show some areas of mucosal hyperemia. ASSESSMENT: 1. Acute infectious colitis. 2. Left ovarian complex cystic lesion, 4.1 cm. 3. Left kidney 1.6 cm cortical lesion. 4. Irritable bowel syndrome. 5. Chronic fibromyalgia. 6. Gastroesophageal reflux disease. 7. Chronic low back pain. 8. Bipolar disorder, controlled. 9. Chronic nicotine dependence, patient is a cigarette smoker. PLAN: Patient is on IV Flagyl and IV fluids. Home medications will be resumed. GI was consulted. The patient will be kept on a clear liquid diet. Care was discussed with the patient and family at the bedside. Will also get a OBSTETRICS/GYNECOLOGY NURSE consultation for the ovarian mass. MMODL / IJN: [id number] /
[2018-02-03] MEDS: SODIUM BICARBONATE TAB 650 MG TAB PO SCH ×2 (17:41→21:50)
[2018-02-03] MEDS: LACTATED RINGERS 1,000 ML IV SCH (19:20)
[2018-02-03] MEDS: CLINDAMYCIN 600 MG in DEXTROSE 5% IN WATER 50 ML IVPB SCH ×2 (19:20)
[2018-02-03] MEDS: IBUPROFEN 800 MG TAB PO PRN (19:56)
[2018-02-03] MEDS: FAMOTIDINE 20 MG TAB PO SCH (21:49)
[2018-02-03] MEDS: MIRTAZAPINE 15 MG TAB PO SCH (21:49)
[2018-02-03] MEDS: ZIPRASIDONE 40 MG CAP PO SCH (21:49)
[2018-02-04] MEDS: CLINDAMYCIN 600 MG in DEXTROSE 5% IN WATER 50 ML IVPB SCH ×8 (00:11→18:16)
[2018-02-04] MEDS: metroNIDAZOLE-NS PMX 500 MG in SALINE 1 100ML.BAG IVPB SCH ×3 (00:50→15:44)
[2018-02-04] MEDS: LACTATED RINGERS 1,000 ML IV SCH ×3 (06:13→15:46)
[2018-02-04] MEDS: LEVOTHYROXINE 25 MCG TAB PO SCH (06:55)
[2018-02-04 08:00] LABS: Anion Gap 9 mmol/L; Blood Urea Nitrogen 8 mg/dL (7-17); Calcium 8.4 mg/dL (8.4-10.2); Carbon Dioxide 24 mmol/L (22-30); Chloride 105 mmol/L (98-107); Glucose 104 mg/dL (74-99); Potassium 3.5 mmol/L (3.5-5.1); Sodium 138 mmol/L (137-145)
[2018-02-04] MEDS: IBUPROFEN 800 MG TAB PO PRN ×3 (08:09→21:57)
[2018-02-04 08:36] LABS: Basophils % (A) 0 %; Eosinophils % (A) 0 %; HCT 36.8 % (34.0-46.0); HGB 12.7 gm/dL (11.4-16.0); Lymphocytes # (A) 0.7 k/uL (1.0-4.8); Lymphocytes % (A) 11 %; MCH 30.2 pg (25.0-35.0); MCHC 34.6 g/dL (31.0-37.0); MCV 87.3 fL (80.0-100.0); Mean Platelet Volume 7.8; Monocytes # (A) 0.4 k/uL (0-1.0); Monocytes % (A) 6 %; Neutrophils # (A) 5.6 k/uL (1.3-7.7); Neutrophils % (A) 82 %; Platelet Count 262 k/uL (150-450); RBC 4.22 m/uL (3.80-5.40); RDW 12.8 % (11.5-15.5); WBC 6.8 k/uL (3.8-10.6)
[2018-02-04] MEDS: CYCLOBENZAPRINE 5 MG TAB PO SCH ×3 (09:32→21:56)
[2018-02-04] MEDS: FAMOTIDINE 20 MG TAB PO SCH ×2 (09:34→21:55)
[2018-02-04] MEDS: ENOXAPARIN 40 MG/0.4 ML SYRINGE SQ SCH (09:34)
[2018-02-04] MEDS: GABAPENTIN 400 MG CAP PO SCH ×3 (09:34→21:56)
[2018-02-04] MEDS: lamoTRIgine 100 MG TAB PO SCH (09:35)
[2018-02-04] MEDS: SODIUM BICARBONATE TAB 650 MG TAB PO SCH ×4 (09:35→21:56)
[2018-02-04] MEDS: PANTOPRAZOLE 40 MG/10 ML VIAL IV SCH (09:35)
[2018-02-04] MEDS: ZIPRASIDONE 40 MG CAP PO SCH ×2 (09:36→21:55)
--- NOTE | 2018-02-04 10:44 | P.PN ---
Subjective Progress Note Date: 02/04/18 Principal diagnosis: Admitted with intractable nausea vomiting abdominal pain diarrhea suspected enteritis colitis. Abdominal pain improved. Diarrhea slowly improving. Expresses hunger this morning. T-max 102.3. White count 6.8. Hemoglobin 12.7. Stool culture pending. Clostridium difficile negative. Objective - Vital Signs Vital signs: Vital Signs Temp 98.1 F 02/04/18 07:15 Pulse 96 02/04/18 07:15 Resp 18 02/04/18 07:15 BP 133/84 02/04/18 07:15 Pulse Ox 99 02/04/18 07:15 Intake & Output 02/03/18 02/04/18 02/04/18 18:59 06:59 18:59 Intake Total 360 400 Output Total 200 Balance 160 400 Weight 68.8 kg 68.8 kg Intake: Oral 360 400 Output: Urine 200 Other: Voiding Method Toilet Toilet # Voids 2 # Bowel Movements 1 - Exam General appearance: The patient is alert, oriented, in no acute distress. HET: Head is normocephalic and atraumatic. Pupils are equal and reactive. Oropharynx is clear without lesions. Neck: Supple without lymphadenopathy. Trachea midline. Heart: S1 S2. Regular rate and rhythm. Lungs: No crackles or wheezes are heard. Abdomen: Soft, nontender, nondistended with bowel sounds. No peritoneal signs. No palpable organomegaly or masses. Extremities: Normal skin color and turgor. No cyanosis, rash, ulceration, clubbing, or edema. Radial and pedal pulses are 2/4 bilaterally. Neurological: No focal deficits. Strength and sensation are grossly intact. - Labs CBC & Chem 7: 02/05/18 07:16 02/05/18 07:16 Labs: Abnormal Lab Results - Last 24 Hours (Table) 02/04/18 02/04/18 Range/Units 06:45 06:45 Lymphocytes # 0.7 L (1.0-4.8) k/uL Glucose 104 H (74-99) mg/dL Microbiology - Last 24 Hours (Table) 02/03/18 13:45 Stool for WBCs - Final Stool 02/03/18 13:45 Stool Culture - Preliminary Stool Assessment and Plan (1) Abdominal pain Narrative/Plan: Intractable nausea vomiting diarrhea abdominal pain with fever suspect infectious enteritis colitis possible sepsis. Current Visit: Yes Status: Acute Code(s): R10.9 - UNSPECIFIED ABDOMINAL PAIN SNOMED Code(s): 32255411 (2) Fever Current Visit: Yes Status: Acute Code(s): R50.9 - FEVER, UNSPECIFIED SNOMED Code(s): 871896906 (3) Diarrhea Current Visit: Yes Status: Acute Code(s): R19.7 - DIARRHEA, UNSPECIFIED SNOMED Code(s): 20229031 Plan: 1. Continue with IV antibiotics. GI prophylaxis. 2. Slow advancement of diet. Patient advised soups and crackers only today. We'll continue to follow with you. Assessment and plan a care discussed with Dr. Echavarria
--- NOTE | 2018-02-04 16:40 | PN ---
PROGRESS NOTE DATE OF SERVICE: 02/04/2018 PRESENTING COMPLAINT: Diarrhea, lower abdominal pain. INTERVAL HISTORY: This patient presented with acute colitis, infectious. Abdominal pain is better. She has been on clear liquids, getting antibiotics. Pain is better. REVIEW OF SYSTEMS: Done for constitutional, cardiovascular, GI, pulmonary; relevant findings as above. CURRENT MEDICATIONS: Current medications are reviewed that include clindamycin and Flagyl. PHYSICAL EXAMINATION: On examination, T-max yesterday evening was 102.3. Afebrile this morning, pulse 104, respiration 20, blood pressure 133/72, pulse ox 99% on room air. GENERAL APPEARANCE: Lying in bed, tired-appearing. EYES: Pupils equal. Conjunctivae normal. HEENT: External appearance of nose and ears normal. Oral cavity normal. NECK: JVD not raised. Mass not palpable. RESPIRATORY: Effort normal. Lungs are clear. CARDIOVASCULAR: First and second sounds normal. No edema. ABDOMEN: Decreased abdominal tenderness. No guarding or rigidity. Soft. Bowel sounds are present. PSYCHIATRY: Alert and oriented x3. Mood and affect normal. INVESTIGATIONS: White count 6.8, potassium 3.5. C difficile negative. ASSESSMENT: 1. Acute infectious colitis, slow to respond. 2. Left ovarian complex cyst lesion measuring 4.1 cm. 3. Left kidney 1.6 cm cyst. 4. Irritable bowel syndrome. 5. Chronic fibromyalgia. 6. Gastroesophageal reflux disease. 7. Chronic low back pain. 8. Bipolar disorder, controlled. 9. Chronic nicotine dependence in a cigarette smoker. PLAN: Continue current medication and treatment plan. Care was discussed with the patient. Will follow. MMODL / IJN: [id number] /
[2018-02-04] MEDS: MIRTAZAPINE 15 MG TAB PO SCH (21:55)
[2018-02-05] MEDS: CLINDAMYCIN 600 MG in DEXTROSE 5% IN WATER 50 ML IVPB SCH ×6 (00:07→12:44)
[2018-02-05] MEDS: metroNIDAZOLE-NS PMX 500 MG in SALINE 1 100ML.BAG IVPB SCH ×3 (00:59→15:38)
[2018-02-05] MEDS: LEVOTHYROXINE 25 MCG TAB PO SCH (06:18)
[2018-02-05] MEDS: LACTATED RINGERS 1,000 ML IV SCH ×3 (06:18→15:37)
[2018-02-05 07:42] LABS: Basophils % (A) 0 %; Eosinophils # (A) 0.1 k/uL (0-0.7); Eosinophils % (A) 0 %; HCT 32.5 % (34.0-46.0); HGB 11.6 gm/dL (11.4-16.0); Lymphocytes # (A) 1.1 k/uL (1.0-4.8); Lymphocytes % (A) 7 %; MCH 30.4 pg (25.0-35.0); MCHC 35.7 g/dL (31.0-37.0); MCV 85.3 fL (80.0-100.0); Mean Platelet Volume 7.4; Monocytes # (A) 0.9 k/uL (0-1.0); Monocytes % (A) 5 %; Neutrophils # (A) 13.9 k/uL (1.3-7.7); Neutrophils % (A) 86 %; Platelet Count 247 k/uL (150-450); RBC 3.82 m/uL (3.80-5.40); RDW 12.8 % (11.5-15.5); WBC 16.2 k/uL (3.8-10.6)
--- NOTE | 2018-02-05 08:11 | P.OBCN ---
History of Present Illness Consult date: 02/05/18 Reason for consult: ovarian cyst Chief complaint: Nausea vomiting diarrhea History of present illness: This is a 42-year-old woman who is well known to me who was admitted for several day history of lower abdominal pain, nausea, vomiting and diarrhea. She was admitted and is being treated for colitis. CT of abdomen and pelvis shows a 4.1 cm left ovarian cyst. She has a history of left ovarian cyst with a recent pelvic ultrasound dated 01/15/2018 which shows the same cyst measuring approximately 5 cm. She has had an evaluation with normal CA-125 level as well. Today she reports feeling better. Her abdominal pain has resolved. She continues to have diarrhea. She does feel feverish and shield throughout the night. She denies abnormal vaginal bleeding or pelvic pain. Review of Systems Constitutional: Reports chills, Reports fever Cardiovascular: Denies chest pain, Denies shortness of breath Respiratory: Denies cough Gastrointestinal: Reports abdominal pain, Reports diarrhea, Reports nausea, Denies BRBPR, Denies vomiting Genitourinary: Denies abnormal vaginal bleeding, Denies dysuria, Denies pelvic pain, Denies urgency Menstruation: Reports period normal Musculoskeletal: Denies low back pain Integumentary: Denies rash Past Medical History Past Medical History: Fibromyalgia, GERD/Reflux, Thyroid Disorder Additional Past Medical History / Comment(s): Fibromyalgia multiple joints, IBS , sphincterof Oddi dysfunction-caused elevated LFT, pt has had cholecystectomy, hypothyroid, chronic low back pain. History of Any Multi-Drug Resistant Organisms: MRSA Year Discovered:: 2009 MDRO Source:: GROIN Past Surgical History: Cholecystectomy Additional Past Surgical History / Comment(s): R BREAST U/S GUIDED BREAST BX THEN CYSTECTOMY, CERVICAL FUSION, SINUS X2, EGD/COLONOSCOPY Past Anesthesia/Blood Transfusion Reactions: Postoperative Nausea & Vomiting ( PONV) Smoking Status: Current every day smoker - Past Family History Father Family Medical History: Cancer Additional Family Medical History / Comment(s): SKIN CANCER Mother Family Medical History: Fibromyalgia Additional Family Medical History / Comment(s): Mother is bipolar. Medications and Allergies Home Medications Medication Instructions Recorded Confirmed Type Gabapentin [Neurontin] 400 mg PO TID 05/03/17 02/03/18 History Levothyroxine Sodium [Synthroid] 25 mcg PO DAILY 05/03/17 02/03/18 History lamoTRIgine [LaMICtal] 100 mg PO DAILY 05/03/17 02/03/18 History C Naltrexone 4.5mg 1 cap PO HS 01/21/18 02/03/18 History Cyclobenzaprine [Flexeril] 5 mg PO TID 01/21/18 02/03/18 History Ibuprofen [Motrin Ib] 800 mg PO Q6H PRN 01/21/18 02/03/18 History Mirtazapine [Remeron] 15 mg PO HS 01/21/18 02/03/18 History Ranitidine HCl [Zantac] 150 mg PO BID 01/21/18 02/03/18 History Ziprasidone [Geodon] 40 mg PO BID 01/21/18 02/03/18 History Allergies Allergy/AdvReac Type Severity Reaction Status Date / Time cefaclor [From [facility]] Allergy Anaphylaxis Verified 02/03/18 07:36 prednisone Allergy Rapid Verified 02/03/18 07:36 Heart Rate Exam - Vital Signs Vital signs: Vital Signs Temp Pulse Pulse Resp BP Pulse Ox 02/05/18 00:00 98.1 F 98 20 127/77 98 02/04/18 20:06 102.2 F H 107 H 24 136/80 97 02/04/18 16:57 101.0 F H 101 H 20 127/82 100 02/04/18 11:32 98.7 F 96 18 122/78 100 Intake and Output 02/04/18 02/05/18 02/05/18 22:59 06:59 14:59 Intake Total 600 Output Total 1600 2000 Balance -1000 -1999 Intake: Oral 600 Output: Urine 1600 1999 Other: # Voids 3 1 This is a pleasant, comfortable appearing female. She is in contact precautions. Targeted physical exam is performed. The abdomen is slim, soft and minimally tender in the lower quadrants. She has no rebound or guarding. She has no active vaginal bleeding. She has no flank pain. Results Result Diagrams: 02/05/18 07:16 02/04/18 06:45 Abnormal Lab Results - Last 24 Hours (Table) 02/04/18 02/05/18 Range/Units 06:45 07:16 WBC 16.2 H (3.8-10.6) k/uL Hct 32.5 L (34.0-46.0) % Neutrophils # 13.9 H (1.3-7.7) k/uL Lymphocytes # 0.7 L (1.0-4.8) k/uL Microbiology - Last 24 Hours (Table) 02/03/18 13:45 Stool for WBCs - Final Stool CT scan - abdomen: report reviewed CT scan - pelvis: report reviewed Assessment and Plan (1) Abdominal pain Current Visit: Yes Status: Acute Code(s): R10.9 - UNSPECIFIED ABDOMINAL PAIN SNOMED Code(s): 32716641 (2) Diarrhea Current Visit: Yes Status: Acute Code(s): R19.7 - DIARRHEA, UNSPECIFIED SNOMED Code(s): 97219389 (3) Enterocolitis Current Visit: Yes Status: Acute Code(s): K52.9 - NONINFECTIVE GASTROENTERITIS AND COLITIS, UNSPECIFIED SNOMED Code(s): 87831331 (4) Fever Current Visit: Yes Status: Acute Code(s): R50.9 - FEVER, UNSPECIFIED SNOMED Code(s): 640700176 (5) Ovarian cyst Narrative/Plan: This is a 42-year-old woman with a history of stable left ovarian cyst. She is well known to me from the outpatient setting where we have been monitoring this conservatively. Is currently 4.1 cm which is consistent, if not smaller, then most recent outpatient ultrasound dated 01/15/2018. Recommend continuing current management for colitis. She will follow up with me as previously planned in the outpatient setting for pelvic ultrasound. Please see to contact me if I can be of any further assistance. Current Visit: Yes Status: Acute Code(s): N83.209 - UNSPECIFIED OVARIAN CYST , UNSPECIFIED SIDE SNOMED Code(s): 66581642
[2018-02-05 08:19] LABS: Anion Gap 8 mmol/L; Blood Urea Nitrogen 5 mg/dL (7-17); Calcium 8.1 mg/dL (8.4-10.2); Carbon Dioxide 24 mmol/L (22-30); Chloride 108 mmol/L (98-107); Glucose 89 mg/dL (74-99); Potassium 3.4 mmol/L (3.5-5.1); Sodium 140 mmol/L (137-145)
[2018-02-05] MEDS: FAMOTIDINE 20 MG TAB PO SCH ×2 (08:39→21:52)
[2018-02-05] MEDS: SODIUM BICARBONATE TAB 650 MG TAB PO SCH ×4 (08:39→21:52)
[2018-02-05] MEDS: ENOXAPARIN 40 MG/0.4 ML SYRINGE SQ SCH (08:39)
[2018-02-05] MEDS: CYCLOBENZAPRINE 5 MG TAB PO SCH ×3 (08:39→21:52)
[2018-02-05] MEDS: ZIPRASIDONE 40 MG CAP PO SCH ×2 (08:40→21:51)
[2018-02-05] MEDS: GABAPENTIN 400 MG CAP PO SCH ×3 (08:40→21:51)
[2018-02-05] MEDS: lamoTRIgine 100 MG TAB PO SCH (08:40)
[2018-02-05] MEDS: PANTOPRAZOLE 40 MG/10 ML VIAL IV SCH (10:31)
--- NOTE | 2018-02-05 10:36 | P.PN ---
Subjective Progress Note Date: 02/05/18 Principal diagnosis: Abdominal pain diarrhea Admitted with intractable nausea vomiting abdominal pain diarrhea suspected enteritis colitis. Abdominal pain improved. Diarrhea slowly improving about 8 small nonbloody pudding consistency bowel movements 24 hours. Tolerating soups and crackers. WBC increased today 16.2. Reports slight abdominal bloatedness. Denies hematemesis hematochezia melena. Still experiencing fevers. Stool culture pending. Clostridium difficile negative. Left upper arm erythema warmth tenderness. She received influenza and pneumonia vaccine a few days ago. Objective - Vital Signs Vital signs: Vital Signs Temp 97.7 F 02/05/18 07:40 Pulse 91 02/05/18 07:40 Resp 16 02/05/18 07:40 BP 127/83 02/05/18 07:40 Pulse Ox 100 02/05/18 07:40 Intake & Output 02/04/18 02/05/18 02/05/18 18:59 06:59 18:59 Intake Total 240 600 300 Output Total 600 3000 Balance -360 -2400 300 Intake: Oral 240 600 300 Output: Urine 600 3000 Other: # Voids 1 1 1 # Bowel Movements 3 - Exam General appearance: The patient is alert, oriented, in no acute distress. HET: Head is normocephalic and atraumatic. Pupils are equal and reactive. Oropharynx is clear without lesions. Neck: Supple without lymphadenopathy. Trachea midline. Heart: S1 S2. Regular rate and rhythm. Lungs: No crackles or wheezes are heard. Abdomen: Soft, nontender, nondistended with bowel sounds. No peritoneal signs. No palpable organomegaly or masses. Extremities: Left upper extremity injection site erythema warm. Normal skin color and turgor. No cyanosis, rash, ulceration, clubbing, or edema. Radial and pedal pulses are 2/4 bilaterally. Neurological: No focal deficits. Strength and sensation are grossly intact. - Labs CBC & Chem 7: 02/05/18 07:16 02/05/18 07:16 Labs: Abnormal Lab Results - Last 24 Hours (Table) 02/05/18 02/05/18 Range/Units 07:16 07:16 WBC 16.2 H (3.8-10.6) k/uL Hct 32.5 L (34.0-46.0) % Neutrophils # 13.9 H (1.3-7.7) k/uL Potassium 3.4 L (3.5-5.1) mmol/L Chloride 108 H (98-107) mmol/L BUN 5 L (7-17) mg/dL Calcium 8.1 L (8.4-10.2) mg/dL Microbiology - Last 24 Hours (Table) 02/03/18 13:45 Stool for WBCs - Final Stool Assessment and Plan (1) Abdominal pain Narrative/Plan: Intractable nausea vomiting diarrhea abdominal pain with fever and worsening leukocytosis suspect infectious enteritis colitis possible sepsis. Current Visit: Yes Status: Acute Code(s): R10.9 - UNSPECIFIED ABDOMINAL PAIN SNOMED Code(s): 33097576 (2) Fever Narrative/Plan: Source of fever is unclear at this time. Current Visit: Yes Status: Acute Code(s): R50.9 - FEVER, UNSPECIFIED SNOMED Code(s): 136986286 (3) Diarrhea Current Visit: Yes Status: Acute Code(s): R19.7 - DIARRHEA, UNSPECIFIED SNOMED Code(s): 83268217 Plan: 1. Assessment and chemistries were discussed with Dr. Fernando. Consult infectious disease. Patient requested Dr. Paez. 2. Blood cultures. 3. Continue with soft/liquid based diet for now. Will send another stool sample for Clostridium difficile testing. 4. Daily CBC. 5. Will follow with you. Assessment and plan of care discussed with Dr. Echavarria
[2018-02-05] MEDS: IBUPROFEN 800 MG TAB PO PRN ×2 (12:47→21:57)
--- NOTE | 2018-02-05 20:51 | PN ---
PROGRESS NOTE DATE OF SERVICE: February 05, 2018. PRESENT COMPLAINT: Diarrhea. INTERVAL HISTORY: This patient presented with acute infectious colitis. Abdominal pain is much improved. The volume of diarrhea has actually gone down though the patient did spike a fever last night and the white count has gone up and clinically the patient actually looks much better. She did get influenza and vaccination shot yesterday. REVIEW OF SYSTEMS: Done for constitutional, cardiovascular, GI, pulmonary, relevant findings as above. CURRENT MEDICATIONS: Include Flagyl. PHYSICAL EXAMINATION: T-max 102.2 last night. Today, patient has remained afebrile. Pulse 91, respiration 16, blood pressure 129/81, pulse ox 99% on room air. General appearance: Sitting up in bed, more comfortable. Eyes: Pupils equal, conjunctivae normal. HEENT external appearance of nose and ears normal. Oral cavity normal. Neck JVD not raised. Mass not palpable. Respiratory effort lungs are clear. CARDIOVASCULAR: First and second sounds normal. No edema. Abdomen: Minimal tenderness. Soft. No guarding, rigidity. Liver and spleen not palpable. Bowel sounds present. PSYCHIATRY: Alert and oriented x3. Mood and affect normal. INVESTIGATIONS: White count 16.2, increased neutrophils. Potassium 3.4, BUN 5, creatinine 0.54. ASSESSMENT: 1. Acute infectious colitis. The patient clinically looks much better in the sense that her pain is gone. Diarrhea volume and frequency have gone down. Actually patient did have a fever and increased white count, which could be from the vaccination patient received. Though may not explain the whole of it. 2. Left ovarian complex cyst, being followed by Dr. Rick as an outpatient. 3. Left kidney cyst 1.6 cm. 4. Irritable bowel syndrome. 5. Chronic fibromyalgia. 6. Gastroesophageal reflux disease. 7. Chronic low back pain. 8. Bipolar disorder controlled. 9. Chronic nicotine dependence patient is a cigarette smoker. PLAN: Infectious Disease was consulted. At this point I will get their opinion since the patient is clinically looking much better maybe the fever and white count is lagging behind and we will await input from Dr. Paez. This was also discussed with Breanne ISAAC. The patient on a low-fiber diet. Follow. MMODL / IJN: [id number] /
[2018-02-05] MEDS: MIRTAZAPINE 15 MG TAB PO SCH (21:52)
--- NOTE | 2018-02-05 23:13 | P.CONS ---
History of Present Illness - Reason for Consult Consult date: 02/05/18 - Chief Complaint Fever and diarrhea - History of Present Illness 42-year-old female who has multiple medical troubles that includes bipolar disorder, fibromyalgia, and irritable bowel syndrome is had a couple week history of worsening symptomatology. She was having increasing amounts of abdominal discomfort and diarrhea and was seen in her primary care physician office. She was thought to have a viral syndrome and supportive care was given. She then presented back to office with some increasing abdominal discomforts was thought to have evidence of now constipation and linzess was given. She had no improvement and actually had much increase in the amount of pain in the abdomen associated with increasing fever up to 102.2. She also had some nausea without much emesis generalized malaise and worsening of her fibromyalgia pain. Because of her worsening symptoms she presented to the emergency center and was admitted with the fever leukocytosis and colitis. At this time she is feeling slightly better with hydration and pain control. She however did receive her influenza and pneumococcal vaccines and on the left arm or the pneumococcal vaccine was given has had a significant reaction with swelling erythema and discomfort. Her fever is trending to improvement but she is somewhat uncomfortable because of the many symptoms she is having. Review of Systems 42-year-old woman who is sitting on the edge the bed has ingested some food and does not seem to be nearly as uncomfortable as when she first presented, her mother is present for a visit. HEENT:Denies headache or acute visual change. Denies sinus or mouth discomforts. Denies neck stiffness or pain. Denies significant oral cavity pain. Denies difficulty on swallowing. Lungs: Denies significant shortness of breath, cough, sputum production, or hemoptysis. Cardiovascular: Denies significant shortness of breath, chest pain, chest wall pain, orthopnea, dyspnea on exertion, syncope Gastrointestinal: As per the HPI Musculoskeletal: Has chronic pain from her fibromyalgia, bothers her back and using a heating pad with some relief. No new joint swelling. Skin: Denies new rash or lesions. No new ulcers or wounds are related.. Neuro: Denies headache or visual change. Denies any new onset weakness or difficulty with ambulation. Denies falls or seizures. Psychiatric:Denies anxiety or depression. Endocrine: Chronic fatigue but weight has been stable Past Medical History Past Medical History: Fibromyalgia, GERD/Reflux, Thyroid Disorder Additional Past Medical History / Comment(s): Fibromyalgia multiple joints, IBS , sphincterof Oddi dysfunction-caused elevated LFT, pt has had cholecystectomy, hypothyroid, chronic low back pain. History of Any Multi-Drug Resistant Organisms: MRSA Year Discovered:: 2009 MDRO Source:: GROIN Past Surgical History: Cholecystectomy Additional Past Surgical History / Comment(s): R BREAST U/S GUIDED BREAST BX THEN CYSTECTOMY, CERVICAL FUSION, SINUS X2, EGD/COLONOSCOPY Past Anesthesia/Blood Transfusion Reactions: Postoperative Nausea & Vomiting ( PONV) Additional Psychological History / Comment(s): lives with her mother. Does not work at this time. Did not relate to children. No animal exposures. The experience. Positive tobacco use. Denies current recreational drug use Smoking Status: Current every day smoker - Past Family History Father Family Medical History: Cancer Additional Family Medical History / Comment(s): SKIN CANCER Mother Family Medical History: Fibromyalgia Additional Family Medical History / Comment(s): Mother is bipolar. Medications and Allergies Home Medications and Allergies Comment(s): Current Medications Acetaminophen (Tylenol Tab) 500 mg PO Q6HR PRN PRN Reason: Fever and/ or Pain Last Admin: 02/04/18 19:38 Dose: 500 mg Cyclobenzaprine HCl (Flexeril) 5 mg PO TID [facility] Last Admin: 02/05/18 21:52 Dose: 5 mg Enoxaparin Sodium (Lovenox) 40 mg SQ DAILY [facility] Last Admin: 02/05/18 08:39 Dose: 40 mg Famotidine (Pepcid) 20 mg PO BID [facility] Last Admin: 02/05/18 21:52 Dose: 20 mg Gabapentin (Neurontin) 400 mg PO TID [facility] Last Admin: 02/05/18 21:51 Dose: 400 mg Metronidazole 500 mg/ IV (Solution) 100 mls @ 100 mls/hr IVPB Q8HR [facility] Last Admin: 02/05/18 15:38 Dose: 100 mls/hr Lactated Ringer's (Lactated Ringers) 1,000 mls @ 125 mls/hr IV .Q8H [facility] Last Admin: 02/05/18 15:37 Dose: 125 mls/hr Ibuprofen (Motrin) 800 mg PO Q6H PRN PRN Reason: Pain Last Admin: 02/05/18 21:57 Dose: 800 mg Lamotrigine (Lamictal) 100 mg PO DAILY [facility] Last Admin: 02/05/18 08:40 Dose: 100 mg Levothyroxine Sodium (Synthroid) 25 mcg PO DAILY@0630 [facility] Last Admin: 02/05/18 06:18 Dose: 25 mcg Mirtazapine (Remeron) 15 mg PO HS [facility] Last Admin: 02/05/18 21:52 Dose: 15 mg Naloxone HCl (Narcan) 0.2 mg IV Q2M PRN PRN Reason: Opioid Reversal Ondansetron HCl (Zofran) 4 mg IVP Q8HR PRN PRN Reason: Nausea And Vomiting Last Admin: 02/03/18 14:18 Dose: 4 mg Pantoprazole Sodium (Protonix) 40 mg IV DAILY [facility] Last Admin: 02/05/18 10:31 Dose: 40 mg Sodium Bicarbonate (Sodium Bicarbonate Tab) 325 mg PO QID [facility] Last Admin: 02/05/18 21:52 Dose: 325 mg Ziprasidone (Geodon) 40 mg PO BID [facility] Last Admin: 02/05/18 21:51 Dose: 40 mg Home Medications Medication Instructions Recorded Confirmed Type Gabapentin [Neurontin] 400 mg PO TID 05/03/17 02/03/18 History Levothyroxine Sodium [Synthroid] 25 mcg PO DAILY 05/03/17 02/03/18 History lamoTRIgine [LaMICtal] 100 mg PO DAILY 05/03/17 02/03/18 History C Naltrexone 4.5mg 1 cap PO HS 01/21/18 02/03/18 History Cyclobenzaprine [Flexeril] 5 mg PO TID 01/21/18 02/03/18 History Ibuprofen [Motrin Ib] 800 mg PO Q6H PRN 01/21/18 02/03/18 History Mirtazapine [Remeron] 15 mg PO HS 01/21/18 02/03/18 History Ranitidine HCl [Zantac] 150 mg PO BID 01/21/18 02/03/18 History Ziprasidone [Geodon] 40 mg PO BID 01/21/18 02/03/18 History Allergies Allergy/AdvReac Type Severity Reaction Status Date / Time cefaclor [From [facility]] Allergy Anaphylaxis Verified 02/03/18 07:36 prednisone Allergy Rapid Verified 02/03/18 07:36 Heart Rate Physical Exam Vitals: Vital Signs Temp Pulse Pulse Resp BP Pulse Ox 02/05/18 20:19 98.2 F 85 17 134/90 100 02/05/18 15:00 97.6 F 90 16 136/85 100 02/05/18 11:12 98.5 F 93 16 129/81 99 02/05/18 07:40 97.7 F 91 16 127/83 100 02/05/18 00:00 98.1 F 98 20 127/77 98 Intake and Output 02/05/18 02/05/18 02/05/18 06:59 14:59 22:59 Intake Total 740 Output Total 1999 Balance -1999 740 Intake: Oral 740 Output: Urine 1999 Other: # Voids 1 1 42-year-old woman sitting at the side of the bed seems to be comfortable. No evidence of current nausea or emesis has been able to ingest some of her dinner HEENT: Anicteric conjunctiva are pink and moist nasal mucosa grossly intact without significant lesions, there is no thrush. Neck: The neck is supple without significant lymphadenopathy or thyromegaly. Lungs: Good bilateral air entry only a few scattered wheezes are heard. There is no significant bronchial sounds. There is no egophony or dullness. Heart: Regular rate and rhythm with an audible S1-S2, no S3 no S4. There is no significant murmur click or rub, PMI was nondisplaced. Abdomen: Abdomen has positive bowel sounds it is soft she has minimal lower quadrant tenderness without palpable masses, no rebound rebound or organomegaly Extremities: The upper extremities have excellent pulses they are symmetric, no significant petechiae or telangiectasia. No splinter hemorrhages were noted. The lower extremities are free from significant edema. The peripheral pulses were 2+ and symmetric. Neuro: Awake alert oriented to person place and time. There are no acute new gross focal sensory motor deficits. Skin reveals evidence of the swelling tenderness and erythema to the left arm just below the shoulder lateral surface there is induration and scant warmth. She relates able to move the arm only because she received an anti-inflammatory that improved its motion. No other skin lesions are seen. The right arm where the influenza vaccine was given has no lesions Results CBC & Chem 7: 02/05/18 07:16 02/05/18 07:16 Labs: Abnormal Lab Results - Last 24 Hours (Table) 02/05/18 02/05/18 Range/Units 07:16 07:16 WBC 16.2 H (3.8-10.6) k/uL Hct 32.5 L (34.0-46.0) % Neutrophils # 13.9 H (1.3-7.7) k/uL Potassium 3.4 L (3.5-5.1) mmol/L Chloride 108 H (98-107) mmol/L BUN 5 L (7-17) mg/dL Calcium 8.1 L (8.4-10.2) mg/dL Microbiology 02/03/18 13:45 Stool Stool for WBCs - Final 02/03/18 13:45 Stool Stool Culture - Preliminary Laboratory Results WBC 16.2 k/uL (3.8-10.6) H 02/05/18 07:16 RBC 3.82 m/uL (3.80-5.40) 02/05/18 07:16 Hgb 11.6 gm/dL (11.4-16.0) 02/05/18 07:16 Hct 32.5 % (34.0-46.0) L 02/05/18 07:16 MCV 85.3 fL (80.0-100.0) 02/05/18 07:16 MCH 30.4 pg (25.0-35.0) 02/05/18 07:16 MCHC 35.7 g/dL (31.0-37.0) 02/05/18 07:16 RDW 12.8 % (11.5-15.5) 02/05/18 07:16 Plt Count 247 k/uL (150-450) 02/05/18 07:16 Neutrophils % 86 % 02/05/18 07:16 Lymphocytes % 7 % 02/05/18 07:16 Monocytes % 5 % 02/05/18 07:16 Eosinophils % 0 % 02/05/18 07:16 Basophils % 0 % 02/05/18 07:16 Neutrophils # 13.9 k/uL (1.3-7.7) H 02/05/18 07:16 Lymphocytes # 1.1 k/uL (1.0-4.8) 02/05/18 07:16 Monocytes # 0.9 k/uL (0-1.0) 02/05/18 07:16 Eosinophils # 0.1 k/uL (0-0.7) 02/05/18 07:16 Basophils # 0.0 k/uL (0-0.2) 02/05/18 07:16 Sodium 140 mmol/L (137-145) 02/05/18 07:16 Potassium 3.4 mmol/L (3.5-5.1) L 02/05/18 07:16 Chloride 108 mmol/L (98-107) H 02/05/18 07:16 Carbon Dioxide 24 mmol/L (22-30) 02/05/18 07:16 Anion Gap 8 mmol/L 02/05/18 07:16 BUN 5 mg/dL (7-17) L 02/05/18 07:16 Creatinine 0.54 mg/dL (0.52-1.04) 02/05/18 07:16 Est GFR (CKD-EPI)AfAm >90 (>60 ml/min/1.73 sqM) 02/05/18 07:16 Est GFR (CKD-EPI)NonAf >90 (>60 ml/min/1.73 sqM) 02/05/18 07:16 Glucose 89 mg/dL (74-99) 02/05/18 07:16 Lactic Ac Sepsis Rflx Y 02/03/18 08:19 Plasma Lactic Acid Jose 1.4 mmol/L (0.7-2.0) 02/03/18 11:36 Calcium 8.1 mg/dL (8.4-10.2) L 02/05/18 07:16 Total Bilirubin 0.7 mg/dL (0.2-1.3) 02/03/18 07:00 AST 23 U/L (14-36) 02/03/18 07:00 ALT 25 U/L (9-52) 02/03/18 07:00 Alkaline Phosphatase 106 U/L (38-126) 02/03/18 07:00 Total Protein 7.9 g/dL (6.3-8.2) 02/03/18 07:00 Albumin 4.6 g/dL (3.5-5.0) 02/03/18 07:00 Amylase 46 U/L (30-110) 02/03/18 07:00 Lipase 49 U/L (23-300) 02/03/18 07:00 Urine Color Dark Brown 02/03/18 07:29 Urine Appearance Turbid (Clear) H 02/03/18 07:29 Urine pH 5.5 (5.0-8.0) 02/03/18 07:29 Ur Specific [place] 1.025 (1.001-1.035) 02/03/18 07:29 Urine Protein 2+ (Negative) H 02/03/18 07:29 Urine Glucose (UA) Negative (Negative) 02/03/18 07: Urine Ketones 1+ (Negative) H 02/03/18 07: Urine Blood Negative (Negative) 02/03/18 07: Urine Nitrite Negative (Negative) 02/03/18 07: Urine Bilirubin Negative (Negative) 02/03/18: Urine Urobilinogen <2.0 mg/dL (<2.0) 02/03/18 07:29 Ur Leukocyte Esterase Small (Negative) H 02/03/18 07:29 Urine WBC 6 /hpf (0-5) H 02/03/18 07:29 Ur Squamous Epith Cells 46 /hpf (0-4) H 02/03/18 07:29 Urine Bacteria Many /hpf (None) H 02/03/18 07:29 Urine Mucus Many /hpf (None) H 02/03/18 07:29 Urine HCG, Qual Not Detected (Not Detectd) 02/03/18 07:29 C. difficile (EIA) Intrp Negative (Negative) 02/03/18 13:45 Assessment and Plan (1) Fever Narrative/Plan: 42-year-old female presents to Hospital complaining of progressive symptoms of increasing abdominal pain with some nausea limited emesis and copious amounts of diarrhea with crampy abdominal pain. She became increasingly weaker and calcium presented to Hospital. She does have a temperature 102.2 with leukocytosis with a white count of 16.2. She comes was admitted fluids have been started and antibiotic therapy was begun. At this time she is having a marked improvement with hydration and the above and dimensions. It is likely she is improving from the metronidazole therapy and the clindamycin will be discontinued. Cultures are process and C. diff is negative. Stool culture is pending. She's had evidence of ischemia reaction to the pneumococcal vaccine to her left arm. Systemic Benadryl and some topical steroid will be given and she shall be monitored further. Fever fortunately has improved. Blood cultures in process and being monitored. Gastroenterology has evaluated and likely infectious colitis occurring. Patient was monitored in plan for outpatient intervention will be developed as culture data available Current Visit: Yes Status: Acute Code(s): R50.9 - FEVER, UNSPECIFIED SNOMED Code(s): 668163622 (2) Diarrhea Current Visit: Yes Status: Acute Code(s): R19.7 - DIARRHEA, UNSPECIFIED SNOMED Code(s): 85747227 (3) Enterocolitis Current Visit: Yes Status: Acute Code(s): K52.9 - NONINFECTIVE GASTROENTERITIS AND COLITIS, UNSPECIFIED SNOMED Code(s): 33149475 (4) Ovarian cyst Current Visit: Yes Status: Acute Code(s): N83.209 - UNSPECIFIED OVARIAN CYST , UNSPECIFIED SIDE SNOMED Code(s): 21158737 (5) Fibromyalgia Current Visit: Yes Status: Acute Code(s): M79.7 - FIBROMYALGIA SNOMED Code (s): 700762871 (6) Leukocytosis Current Visit: Yes Status: Acute Code(s): D72.829 - ELEVATED WHITE BLOOD CELL COUNT, UNSPECIFIED SNOMED Code(s): 352050492
[2018-02-06] MEDS: LACTATED RINGERS 1,000 ML IV SCH ×3 (00:09→19:06)
[2018-02-06] MEDS: metroNIDAZOLE-NS PMX 500 MG in SALINE 1 100ML.BAG IVPB SCH ×3 (00:10→15:44)
[2018-02-06] MEDS: TRIAMCINOLONE 0.1% CREAM 80 GM TUBE TOPICAL SCH ×5 (00:10→21:14)
[2018-02-06] MEDS: diphenhydrAMINE 50 MG CAP PO PRN ×3 (00:10→21:14)
[2018-02-06] MEDS: LEVOTHYROXINE 25 MCG TAB PO SCH (06:25)
[2018-02-06 07:26] LABS: Basophils % (A) 0 %; Eosinophils # (A) 0.2 k/uL (0-0.7); Eosinophils % (A) 2 %; HCT 32.7 % (34.0-46.0); HGB 10.9 gm/dL (11.4-16.0); Lymphocytes # (A) 2.1 k/uL (1.0-4.8); Lymphocytes % (A) 18 %; MCHC 33.3 g/dL (31.0-37.0); MCV 87.2 fL (80.0-100.0); Mean Platelet Volume 7.6; Monocytes # (A) 0.6 k/uL (0-1.0); Monocytes % (A) 5 %; Neutrophils # (A) 8.4 k/uL (1.3-7.7); Neutrophils % (A) 73 %; Platelet Count 250 k/uL (150-450); RBC 3.75 m/uL (3.80-5.40); RDW 12.8 % (11.5-15.5); WBC 11.6 k/uL (3.8-10.6)
[2018-02-06 07:39] LABS: Anion Gap 8 mmol/L; Blood Urea Nitrogen 4 mg/dL (7-17); Calcium 8.3 mg/dL (8.4-10.2); Carbon Dioxide 25 mmol/L (22-30); Chloride 110 mmol/L (98-107); Glucose 84 mg/dL (74-99); Potassium 3.7 mmol/L (3.5-5.1); Sodium 143 mmol/L (137-145)
[2018-02-06] MEDS: CYCLOBENZAPRINE 5 MG TAB PO SCH ×3 (08:40→21:14)
[2018-02-06] MEDS: ENOXAPARIN 40 MG/0.4 ML SYRINGE SQ SCH (08:40)
[2018-02-06] MEDS: FAMOTIDINE 20 MG TAB PO SCH ×2 (08:40→21:14)
[2018-02-06] MEDS: GABAPENTIN 400 MG CAP PO SCH ×3 (08:44→21:14)
[2018-02-06] MEDS: lamoTRIgine 100 MG TAB PO SCH (08:44)
[2018-02-06] MEDS: PANTOPRAZOLE 40 MG/10 ML VIAL IV SCH (08:45)
[2018-02-06] MEDS: SODIUM BICARBONATE TAB 650 MG TAB PO SCH ×4 (08:45→21:14)
[2018-02-06] MEDS: ZIPRASIDONE 40 MG CAP PO SCH ×2 (08:47→21:14)
--- NOTE | 2018-02-06 14:30 | P.PN ---
Subjective Progress Note Date: 02/06/18 Principal diagnosis: Abdominal pain diarrhea Admitted with intractable nausea vomiting abdominal pain diarrhea suspected enteritis colitis. Abdominal pain improved. Diarrhea slowly improving. Tolerating soups and crackers. WBC improved today 11.6. Reports slight abdominal bloatedness. Denies hematemesis hematochezia melena. Fevers improved. Stool culture pending. Clostridium difficile negative x 2. Left upper arm erythema warmth tenderness. Preliminary BC pending. Objective - Vital Signs Vital signs: Vital Signs Temp 97.8 F 02/06/18 13:26 Pulse 79 02/06/18 13:26 Resp 18 02/06/18 13:26 BP 135/87 02/06/18 13:26 Pulse Ox 99 02/06/18 13:26 Intake & Output 02/05/18 02/06/18 02/06/18 18:59 06:59 18:59 Intake Total 740 400 Output Total 1600 400 Balance 740 -1600 0 Intake: Oral 740 400 Output: Urine 1600 400 Other: # Voids 1 1 1 # Bowel Movements 2 - Exam General appearance: The patient is alert, oriented, in no acute distress. HET: Head is normocephalic and atraumatic. Pupils are equal and reactive. Oropharynx is clear without lesions. Neck: Supple without lymphadenopathy. Trachea midline. Heart: S1 S2. Regular rate and rhythm. Lungs: No crackles or wheezes are heard. Abdomen: Soft, nontender, nondistended with bowel sounds. No peritoneal signs. No palpable organomegaly or masses. Extremities: Left upper extremity injection site erythema warm. Normal skin color and turgor. No cyanosis, rash, ulceration, clubbing, or edema. Radial and pedal pulses are 2/4 bilaterally. Neurological: No focal deficits. Strength and sensation are grossly intact. - Labs CBC & Chem 7: 02/06/18 06:15 02/06/18 06:15 Labs: Abnormal Lab Results - Last 24 Hours (Table) 02/06/18 02/06/18 Range/Units 06:15 06:15 WBC 11.6 H (3.8-10.6) k/uL RBC 3.75 L (3.80-5.40) m/uL Hgb 10.9 L (11.4-16.0) gm/dL Hct 32.7 L (34.0-46.0) % Neutrophils # 8.4 H (1.3-7.7) k/uL Chloride 110 H (98-107) mmol/L BUN 4 L (7-17) mg/dL Calcium 8.3 L (8.4-10.2) mg/dL Microbiology - Last 24 Hours (Table) 02/05/18 11:26 Blood Culture - Preliminary Blood No Growth after 24 hours Assessment and Plan (1) Abdominal pain Narrative/Plan: Intractable nausea vomiting diarrhea abdominal pain with fever and worsening leukocytosis suspect infectious enteritis colitis possible sepsis. Current Visit: Yes Status: Acute Code(s): R10.9 - UNSPECIFIED ABDOMINAL PAIN SNOMED Code(s): 03598370 (2) Fever Current Visit: Yes Status: Acute Code(s): R50.9 - FEVER, UNSPECIFIED SNOMED Code(s): 281720492 (3) Diarrhea Current Visit: Yes Status: Acute Code(s): R19.7 - DIARRHEA, UNSPECIFIED SNOMED Code(s): 31310387 Plan: 1. Diet as tolerated. 2. ABX per ID. 3. RTO 3-4 weeks reevaluation. Assessment and plan of care discussed with Dr. Echavarria
[2018-02-06] MEDS: IBUPROFEN 800 MG TAB PO PRN (21:13)
[2018-02-06] MEDS: MIRTAZAPINE 15 MG TAB PO SCH (21:14)
--- NOTE | 2018-02-06 22:57 | PN ---
PROGRESS NOTE DATE OF SERVICE: 02/06/2018 PRESENTING COMPLAINT: Abdominal pain, diarrhea. INTERVAL HISTORY: This patient presented with acute infectious colitis, doing much better on Flagyl. Pain is much improved. Had only 3 bowel movements yesterday, only 1 this morning. This afternoon when I see the patient, the patient has been out of bed, did tolerate a light diet. The fever could have been from the vaccine that she had received. REVIEW OF SYSTEMS: Done for constitutional, cardiovascular, GI, pulmonary; relevant findings as above. CURRENT MEDICATIONS: Reviewed that include Flagyl. EXAMINATION: Temperature 97.8 pulse 79, respirations 18, blood pressure 135/87, pulse ox 99% on room air. GENERAL APPEARANCE: Sitting on bed, more comfortable. EYES: Pupils are equal. Conjunctivae normal. HEENT: External nose and ears normal. Oral cavity normal. NECK: JVD not raised. Mass not palpable. RESPIRATORY: Effort normal. Lungs are clear. CARDIOVASCULAR: First and second sounds normal. No edema. ABDOMEN: Soft, nontender. Liver and spleen not palpable. PSYCHIATRY: Alert and oriented x3. Mood and affect were normal. INVESTIGATIONS: White count 11.6, hemoglobin 10.9. Potassium 3.7. ASSESSMENT: 1. Acute infectious colitis with significant clinical improvement. 2. Ovarian complex is being followed by Dr. Rodriguez as an outpatient. 3. Left kidney 6.16 cm. 4. Irritable bowel syndrome. 5. Chronic fibromyalgia. 6. Gastroesophageal reflux disease. 7. Low back pain. 8. Bipolar disorder, controlled. 9. Nicotine dependence. Patient is a cigarette smoker. PLAN: Care was discussed at length with the patient. She is doing much better. Encouraged to increase her oral intake. Diet has already been advanced. If she continues to do well, she can be discharged tomorrow. MMODL / IJN: [id number] /
--- NOTE | 2018-02-06 23:05 | P.PN ---
Subjective Progress Note Date: 02/06/18 Principal diagnosis: Fever and diarrhea 42-year-old female who has multiple medical troubles that includes bipolar disorder, fibromyalgia, and irritable bowel syndrome is had a couple week history of worsening symptomatology. She was having increasing amounts of abdominal discomfort and diarrhea and was seen in her primary care physician office. She was thought to have a viral syndrome and supportive care was given. She then presented back to office with some increasing abdominal discomforts was thought to have evidence of now constipation and linzess was given. She had no improvement and actually had much increase in the amount of pain in the abdomen associated with increasing fever up to 102.2. She also had some nausea without much emesis generalized malaise and worsening of her fibromyalgia pain. Because of her worsening symptoms she presented to the emergency center and was admitted with the fever leukocytosis and colitis. At this time she is feeling slightly better with hydration and pain control. She however did receive her influenza and pneumococcal vaccines and on the left arm or the pneumococcal vaccine was given has had a significant reaction with swelling erythema and discomfort. Her fever is trending to improvement but she is somewhat uncomfortable because of the many symptoms she is having. On 02/06/2018 the patient is now considered improved. Her fevers have improved. Her nausea and emesis resolved. She's had stool today but it was somewhat formed. She is not having difficulties such as nausea or emesis. Still having some intermittent crampy abdominal pain but is considerably better than admission. No melena or hematochezia. Objective - Vital Signs Vital signs: Vital Signs Temp 97.7 F 02/06/18 20:27 Pulse 86 02/06/18 20:27 Resp 16 02/06/18 20:27 BP 144/86 02/06/18 20:27 Pulse Ox 98 02/06/18 20:27 Intake & Output 02/06/18 02/06/18 02/07/18 06:59 18:59 06:59 Intake Total 400 Output Total 1600 400 Balance -1600 0 Intake: Oral 400 Output: Urine 1600 400 Other: # Voids 1 1 # Bowel Movements 2 - Exam 42-year-old woman sitting at the side of the bed seems to be comfortable. No evidence of current nausea or emesis has been able to ingest some of her dinner HEENT: Anicteric conjunctiva are pink and moist nasal mucosa grossly intact without significant lesions, there is no thrush. Neck: The neck is supple without significant lymphadenopathy or thyromegaly. Lungs: Good bilateral air entry only a few scattered wheezes are heard. There is no significant bronchial sounds. There is no egophony or dullness. Heart: Regular rate and rhythm with an audible S1-S2, no S3 no S4. There is no significant murmur click or rub, PMI was nondisplaced. Abdomen: Abdomen has positive bowel sounds it is soft she has minimal lower quadrant tenderness without palpable masses, no rebound rebound or organomegaly Extremities: The upper extremities have excellent pulses they are symmetric, no significant petechiae or telangiectasia. No splinter hemorrhages were noted. The lower extremities are free from significant edema. The peripheral pulses were 2+ and symmetric. Neuro: Awake alert oriented to person place and time. There are no acute new gross focal sensory motor deficits. Skin reveals evidence of the improved swelling and tenderness and erythema to the left arm just below the shoulder lateral surface there is induration and scant warmth. She relates able to move the arm much better today. No other skin lesions are seen. The right arm where the influenza vaccine was given has no lesions - Labs CBC & Chem 7: 02/06/18 06:15 02/06/18 06:15 Labs: Abnormal Lab Results - Last 24 Hours (Table) 02/06/18 02/06/18 Range/Units 06:15 06:15 WBC 11.6 H (3.8-10.6) k/uL RBC 3.75 L (3.80-5.40) m/uL Hgb 10.9 L (11.4-16.0) gm/dL Hct 32.7 L (34.0-46.0) % Neutrophils # 8.4 H (1.3-7.7) k/uL Chloride 110 H (98-107) mmol/L BUN 4 L (7-17) mg/dL Calcium 8.3 L (8.4-10.2) mg/dL Microbiology - Last 24 Hours (Table) 02/03/18 13:45 Stool Culture - Final Stool 02/05/18 11:26 Blood Culture - Preliminary Blood No Growth after 24 hours Laboratory Results WBC 11.6 k/uL (3.8-10.6) H 02/06/18 06:15 RBC 3.75 m/uL (3.80-5.40) L 02/06/18 06:15 Hgb 10.9 gm/dL (11.4-16.0) L 02/06/18 06:15 Hct 32.7 % (34.0-46.0) L 02/06/18 06:15 MCV 87.2 fL (80.0-100.0) 02/06/18 06:15 MCH 29.0 pg (25.0-35.0) 02/06/18 06:15 MCHC 33.3 g/dL (31.0-37.0) 02/06/18 06:15 RDW 12.8 % (11.5-15.5) 02/06/18 06:15 Plt Count 250 k/uL (150-450) 02/06/18 06:15 Neutrophils % 73 % 02/06/18 06:15 Lymphocytes % 18 % 02/06/18 06:15 Monocytes % 5 % 02/06/18 06:15 Eosinophils % 2 % 02/06/18 06:15 Basophils % 0 % 02/06/18 06:15 Neutrophils # 8.4 k/uL (1.3-7.7) H 02/06/18 06:15 Lymphocytes # 2.1 k/uL (1.0-4.8) 02/06/18 06:15 Monocytes # 0.6 k/uL (0-1.0) 02/06/18 06:15 Eosinophils # 0.2 k/uL (0-0.7) 02/06/18 06:15 Basophils # 0.0 k/uL (0-0.2) 02/06/18 06:15 Sodium 143 mmol/L (137-145) 02/06/18 06:15 Potassium 3.7 mmol/L (3.5-5.1) 02/06/18 06:15 Chloride 110 mmol/L (98-107) H 02/06/18 06:15 Carbon Dioxide 25 mmol/L (22-30) 02/06/18 06:15 Anion Gap 8 mmol/L 02/06/18 06:15 BUN 4 mg/dL (7-17) L 02/06/18 06:15 Creatinine 0.57 mg/dL (0.52-1.04) 02/06/18 06:15 Est GFR (CKD-EPI)AfAm >90 (>60 ml/min/1.73 sqM) 02/06/18 06:15 Est GFR (CKD-EPI)NonAf >90 (>60 ml/min/1.73 sqM) 02/06/18 06:15 Glucose 84 mg/dL (74-99) 02/06/18 06:15 Lactic Ac Sepsis Rflx Y 02/03/18 08:19 Plasma Lactic Acid Jose 1.4 mmol/L (0.7-2.0) 02/03/18 11:36 Calcium 8.3 mg/dL (8.4-10.2) L 02/06/18 06:15 Total Bilirubin 0.7 mg/dL (0.2-1.3) 02/03/18 07:00 AST 23 U/L (14-36) 02/03/18 07:00 ALT 25 U/L (9-52) 02/03/18 07:00 Alkaline Phosphatase 106 U/L (38-126) 02/03/18 07:00 Total Protein 7.9 g/dL (6.3-8.2) 02/03/18 07:00 Albumin 4.6 g/dL (3.5-5.0) 02/03/18 07:00 Amylase 46 U/L (30-110) 02/03/18 07:00 Lipase 49 U/L (23-300) 02/03/18 07:00 Urine Color Dark Brown 02/03/18 07:29 Urine Appearance Turbid (Clear) H 02/03/18 07:29 Urine pH 5.5 (5.0-8.0) 02/03/18 07:29 Ur Specific Siler 1.025 (1.001-1.035) 02/03/18 07:29 Urine Protein 2+ (Negative) H 02/03/18 07:29 Urine Glucose (UA) Negative (Negative) 02/03/18 07:29 Urine Ketones 1+ (Negative) H 02/03/18 07:29 Urine Blood Negative (Negative) 02/03/18 07:29 Urine Nitrite Negative (Negative) 02/03/18 07:29 Urine Bilirubin Negative (Negative) 02/03/18 07:29 Urine Urobilinogen <2.0 mg/dL (<2.0) 03/12/18 07:29 Ur Leukocyte Esterase Small (Negative) H 02/03/18 07:29 Urine WBC 6 /hpf (0-5) H 02/03/18 07:29 Ur Squamous Epith Cells 46 /hpf (0-4) H 02/03/18 07:29 Urine Bacteria Many /hpf (None) H 02/03/18 07:29 Urine Mucus Many /hpf (None) H 02/03/18 07:29 Urine HCG, Qual Not Detected (Not Detectd) 02/03/18 07:29 C. difficile (EIA) Intrp Negative (Negative) 02/06/18 06:50 Microbiology 02/03/18 13:45 Stool Stool Culture - Final 02/05/18 11:26 Blood Blood Culture - Preliminary No Growth after 24 hours 02/03/18 13:45 Stool Stool for WBCs - Final Assessment and Plan (1) Fever Narrative/Plan: 42-year-old female presents to Hospital complaining of progressive symptoms of increasing abdominal pain with some nausea limited emesis and copious amounts of diarrhea with crampy abdominal pain. She became increasingly weaker and calcium presented to Hospital. She does have a temperature 102.2 with leukocytosis with a white count of 16.2. She comes was admitted fluids have been started and antibiotic therapy was begun. At this time she is having a marked improvement with hydration and the above and dimensions. It is likely she is improving from the metronidazole therapy and the clindamycin will be discontinued. Cultures are process and C. diff is negative. Stool culture is pending. She's had evidence of ischemia reaction to the pneumococcal vaccine to her left arm. Systemic Benadryl and some topical steroid will be given and she shall be monitored further. Fever fortunately has improved. Blood cultures in process and being monitored. Gastroenterology has evaluated and likely infectious colitis occurring. Patient was monitored in plan for outpatient intervention will be developed as culture data available Precepting 2018 reveals the patient to be considerably improved. Her fever today has been resolved temperature is 97.0 leukocytosis improving and she feels considerably better. She is eating well without nausea or emesis she's had stool today with only minimal crampy abdominal pain. In October reduce her fluids to a minimal rate she's eating and drinking well. We'll follow-up her CBC in the morning. She was without fever and leukocytosis improved she may demented discharged home. She will complete a 7 day course of metronidazole for a colitis that was extremely responsive to the above treatment. Current Visit: Yes Status: Acute Code(s): R50.9 - FEVER, UNSPECIFIED SNOMED Code(s): 973239392 (2) Diarrhea Current Visit: Yes Status: Acute Code(s): R19.7 - DIARRHEA, UNSPECIFIED SNOMED Code(s): 19879841 (3) Enterocolitis Current Visit: Yes Status: Acute Code(s): K52.9 - NONINFECTIVE GASTROENTERITIS AND COLITIS, UNSPECIFIED SNOMED Code(s): 29470184 (4) Ovarian cyst Current Visit: Yes Status: Acute Code(s): N83.209 - UNSPECIFIED OVARIAN CYST , UNSPECIFIED SIDE SNOMED Code(s): 17121444 (5) Fibromyalgia Current Visit: Yes Status: Acute Code(s): M79.7 - FIBROMYALGIA SNOMED Code (s): 115389914 (6) Leukocytosis Current Visit: Yes Status: Acute Code(s): D72.829 - ELEVATED WHITE BLOOD CELL COUNT, UNSPECIFIED SNOMED Code(s): 075312806
[2018-02-06] MEDS ORDERED: SODIUM CHLORIDE 0.9% 1,000 ML IV SCH (23:15)
[2018-02-07] MEDS: LEVOTHYROXINE 25 MCG TAB PO SCH (06:29)
[2018-02-07 06:48] LABS: Basophils % (A) 0 %; Eosinophils # (A) 0.2 k/uL (0-0.7); Eosinophils % (A) 2 %; HCT 32.5 % (34.0-46.0); HGB 11.2 gm/dL (11.4-16.0); Lymphocytes # (A) 2.1 k/uL (1.0-4.8); Lymphocytes % (A) 22 %; MCH 29.7 pg (25.0-35.0); MCHC 34.4 g/dL (31.0-37.0); MCV 86.3 fL (80.0-100.0); Mean Platelet Volume 7.9; Monocytes # (A) 0.5 k/uL (0-1.0); Monocytes % (A) 5 %; Neutrophils # (A) 6.7 k/uL (1.3-7.7); Neutrophils % (A) 69 %; Platelet Count 273 k/uL (150-450); RBC 3.77 m/uL (3.80-5.40); RDW 12.8 % (11.5-15.5); WBC 9.8 k/uL (3.8-10.6)
[2018-02-07 07:19] LABS: Anion Gap 8 mmol/L; Blood Urea Nitrogen 6 mg/dL (7-17); Calcium 8.7 mg/dL (8.4-10.2); Carbon Dioxide 27 mmol/L (22-30); Chloride 108 mmol/L (98-107); Glucose 88 mg/dL (74-99); Potassium 3.7 mmol/L (3.5-5.1); Sodium 143 mmol/L (137-145)
[2018-02-07] MEDS ORDERED: metroNIDAZOLE 500 MG TAB PO SCH (09:00)
[2018-02-07] MEDS: CYCLOBENZAPRINE 5 MG TAB PO SCH (09:00)
[2018-02-07] MEDS: FAMOTIDINE 20 MG TAB PO SCH (09:01)
[2018-02-07] MEDS: ENOXAPARIN 40 MG/0.4 ML SYRINGE SQ SCH (09:01)
[2018-02-07] MEDS: GABAPENTIN 400 MG CAP PO SCH (09:01)
[2018-02-07] MEDS: SODIUM BICARBONATE TAB 650 MG TAB PO SCH ×2 (09:02→12:59)
[2018-02-07] MEDS: PANTOPRAZOLE 40 MG/10 ML VIAL IV SCH (09:02)
[2018-02-07] MEDS: lamoTRIgine 100 MG TAB PO SCH (09:02)
[2018-02-07] MEDS: ZIPRASIDONE 40 MG CAP PO SCH (09:03)
[2018-02-07] MEDS: TRIAMCINOLONE 0.1% CREAM 80 GM TUBE TOPICAL SCH ×2 (09:03→12:59)
[2018-02-07 09:17] VITALS: RESP 16
[2018-02-07 13:04] VITALS: BP 132/88; PULSE 85; TEMP 98.6
[2018-02-08] MEDS ORDERED: PANTOPRAZOLE 40 MG TABLET PO SCH (07:30)
--- NOTE | 2018-02-12 00:44 | DS ---
DISCHARGE SUMMARY DATE OF ADMISSION: 02/03/2018 DATE OF DISCHARGE: 02/07/2018 FINAL DIAGNOSES: 1. Acute infectious colitis with improvement by the time of discharge. 2. Ovarian complex cyst being followed by Dr. Rodriguez as an outpatient. 3. Left kidney cyst. 4. Irritable bowel syndrome, chronic. 5. Chronic fibromyalgia. 6. Gastroesophageal reflux disease. 7. Chronic low back pain. 8. Bipolar disorder, controlled. 9. Nicotine dependence. The patient is an active cigarette smoker. The patient presented with acute nausea, vomiting, diarrhea, abdominal pain. Did have a CT scan of the abdomen, felt to have acute infectious colitis. The patient did do well with antibiotics. By the time of discharge, tolerating a diet, up and about. Afebrile. Normal white count. On exam, abdomen is soft, nontender. Lungs are clear. CONSULTATION: 1. Dr. Raina Echavarria from GI. 2. Dr. Paez from Infectious Disease. 3. Dr. Rodriguez from [facility]. DISCHARGE MEDICATIONS: 1. Neurontin 4 mg p.o. t.i.d. 2. Synthroid 25 mcg a day. 3. Lamictal 100 mg p.o. daily. 4. Naltrexone 4.5 mg at bedtime. 5. Flexeril 5 mg t.i.d. 6. Remeron 50 mg q.h.s. 7. Zantac 150 mg p.o. b.i.d. 8. Geodon 40 mg b.i.d. 9. Flagyl 5 mg t.i.d., 15 tablets. Diet soft, bland. Follow Dr. Raina Echavarria on 03/05/2018. Follow up with Dr. Gabriel Ponce in 3 days. The patient already follows with Dr. Rodriguez and to keep that appointment. MMODL / IJN: [id number] /
== END 2018-02-07 14:45 | disposition home or self-care (01) | DRG 392 ==
LOC: EC 06:27 → 6PED 09:21 → INTOOBSV 09:21 → 6PED 10:41 → OBSVTOIN 02-05 15:41
PROVIDERS: ADMIT Hospitalist; ATTEND Hospitalist
DX: A09 Infectious gastroenteritis and colitis, unspecified (principal); N28.1 Cyst of kidney, acquired; E03.9 Hypothyroidism, unspecified; E86.0 Dehydration; F17.210 Nicotine dependence, cigarettes, uncomplicated; F31.9 Bipolar disorder, unspecified; G89.29 Other chronic pain; K21.9 Gastro-esophageal reflux disease without esophagitis; K58.9 Irritable bowel syndrome, unspecified; M79.7 Fibromyalgia; N83.292 Other ovarian cyst, left side; Z79.899 Other long term (current) drug therapy; Z80.8 Family history of malignant neoplasm of other organs or systems; Z90.49 Acquired absence of other specified parts of digestive tract; Z98.1 Arthrodesis status; Z79.890 Hormone replacement therapy; M54.5 Low back pain
CPT/HCPCS: 36415; 74018; 74177; 80048; 80053; 81001; 81025; 82150; 83605; 83690; 85025; 87040; 87045; 87046; 87324; 89055; 90686; 90732; 96361; 96365; 96368; 96375; 99285

== ENCOUNTER → 2018-02-11 | Outpatient (CLI) | payer OTHER ==
--- NOTE | 2018-02-11 14:32 | CT ---
EXAMINATION TYPE: CT abdomen wo/w con DATE OF EXAM: 02/11/2018 HISTORY: Atypical left renal cyst CT DLP: 1202mGycm Automated Exposure Control for Dose Reduction was Utilized. CONTRAST: CT scan of the abdomen is performed with oral and without and with IV Contrast, patient injected with 100 ml mL of Omnipaque 300. COMPARISON: CT abdomen and pelvis February 03, 2018 and older studies back through June 21, 2017. FINDINGS: LUNG BASES: No significant abnormality is appreciated. LIVER/GB: Cholecystectomy clips are redemonstrated. Additional clip anterior to liver is again seen. PANCREAS: Prostate gland is stable and diffusely prominent particularly in the mid to distal body. SPLEEN: No significant abnormality is seen. ADRENALS: No significant abnormality is seen. KIDNEYS: No right-sided solid or cystic renal mass is present. No renal calculi are seen on noncontra st CT. Correlating with older CTs there is lobulated lesion posteriorly in left kidney upper to mid p ole level measuring 1.4 x 0.8 cm axial image 32 series 3, Hounsfield units average 18 on noncontrast study, given values of 81 units on postcontrast imaging and 54 on delayed phased images. Areas slight ly hypodense relative to adjacent renal parenchyma. Lesion is slightly less prominent or diminished i n size from original CT June 21, 2017. Hounsfield units are similar. No new suspicious lesions in lef t kidney are present. BOWEL: The oral contrast does not reach colonic level. There is no suspicious small or large bowel di latation. There is prominence of colonic fecal material noted on current study. LYMPH NODES: No greater than 1cm abdominal lymph nodes are appreciated. OSSEOUS STRUCTURES: No significant abnormality is seen. OTHER: No significant additional abnormality is seen. IMPRESSION: Exophytic posterior left renal lesion is diminished in size from June 21, 2017. Some enha ncement however is still felt present though less pronounced than adjacent renal parenchyma. Solid ma ss or neoplasm thus cannot be excluded. Advise continued imaging surveillance with MRI if possible. N o new suspicious lesions are seen.
== END | disposition home or self-care (01) ==
LOC: RADCTMAIN 08:43
PROVIDERS: ATTEND Urology
DX: N28.1 Cyst of kidney, acquired (principal)
CPT/HCPCS: 74170; Q9967

== ENCOUNTER → 2018-07-29 | Outpatient (CLI) | payer OTHER ==
[2018-07-29 14:14] LABS: Basophils % (A) 0 %; Eosinophils # (A) 0.1 k/uL (0-0.7); Eosinophils % (A) 1 %; HGB 14.3 gm/dL (11.4-16.0); Lymphocytes # (A) 2.7 k/uL (1.0-4.8); Lymphocytes % (A) 26 %; MCH 29.1 pg (25.0-35.0); MCHC 32.5 g/dL (31.0-37.0); MCV 89.6 fL (80.0-100.0); Monocytes # (A) 0.5 k/uL (0-1.0); Monocytes % (A) 5 %; Neutrophils % (A) 67 %; Platelet Count 271 k/uL (150-450); RBC 4.91 m/uL (3.80-5.40); RDW 12.7 % (11.5-15.5); WBC 10.5 k/uL (3.8-10.6)
--- NOTE | 2018-07-29 14:15 | XR ---
EXAMINATION TYPE: XR Hip Bilateral and AP pelvis DATE OF EXAM: 07/29/2018 COMPARISON: NONE HISTORY: Pain TECHNIQUE: A single AP view of the pelvis is obtained. Two views of the bilateral hip are obtained. FINDINGS: There is no acute fracture/dislocation evident in the pelvis. Sclerosis involving the left SI joint. Osseous structures intact. Joint spaces preserved. No erosive changes. Lower lumbar spine has a normal appearance. IMPRESSION: 1. Nonspecific sclerosis involving the left SI joint may be related to bone island rather than sacroi liitis correlate clinically. 2. Nonspherical morphology of the femoral head can occasionally be associated with femoral acetabular impingement. If symptoms persist consider MRI.
[2018-07-29 14:57] LABS: Erythrocyte Sedimentation Rate 2 mm/hr (0-20)
[2018-07-29 20:54] LABS: Cyclic Citrullinated Pep IgG NEGATIVE (NEGATIVE)
[2018-07-29 21:57] LABS: Rheumatoid Factor <4 IU/mL (0-15)
== END | disposition home or self-care (01) ==
LOC: LABWHC1 12:47
PROVIDERS: ATTEND Internal Medicine
DX: M89.8X8 Other specified disorders of bone, other site (principal)
CPT/HCPCS: 36415; 73521; 85025; 85652; 86038; 86200; 86431

== ENCOUNTER → 2018-08-25 | Outpatient (CLI) | payer OTHER ==
--- NOTE | 2018-08-25 20:43 | MR ---
EXAMINATION TYPE: MR hips BILAT wo con DATE OF EXAM: 08/25/2018 COMPARISON: Pelvic and bilateral hip x-ray July 29, 2018. CT abdomen and pelvis February 03, 2018. HISTORY: Orestes hip pain for 8 months. Standard multiplanar, multisequence MRI departmental protocol Multiplanar, multisequence images of the pelvis focus on both hips were acquired. FINDINGS: Hip joint spaces are maintained bilaterally. There are small to tiny bilateral hip joint ef fusions. Bone marrow signal intensity visualized pelvis and both hips is felt within normal limits. N o suspicious edema is present. No suspicious low T1 signal is noted. No suspicious fluid signal seen at level of the greater lesser trochanters bilaterally. Labrum appears grossly intact given limitatio n non- arthrogram study bilaterally. Muscle bulk bilateral thighs is symmetric and felt within normal limits. No bowel or fat containing inguinal hernias present bilaterally. No suspicious groin adenopa thy is noted bilaterally. There is persistent 4.0 x 3.2 cm T2 hyperintense lesion in the left ovary or adnexa and coronal image 11. This lesion however shows T1 hyperintensity. Anteverted uterus is redemonstrated. No bowel dilat ation is seen. No free fluid is seen in pelvic cul-de-sac. No suspicious pelvic adenopathy is noted. IMPRESSION: No suspicious finding identified in either hip to account for patient's symptoms. Note is made of red emonstration of 4.1 cm left ovarian simple cyst, solid lesion or neoplasm not excluded. Advise pelvic ultrasound correlation if it has not been performed.
== END ==
LOC: RADMRIMAIN 08:33
PROVIDERS: ATTEND Internal Medicine
DX: M25.559 Pain in unspecified hip (principal)

== ENCOUNTER → 2018-10-01 | Outpatient (CLI) | payer OTHER ==
--- NOTE | 2018-10-01 15:32 | US ---
EXAMINATION TYPE: US pelvic complete DATE OF EXAM: 10/01/2018 COMPARISON: CT 02/03/2018, US 12/06/2014 CLINICAL HISTORY: N83.209 Unspecified ovarian cyst, unspecified radha. Left ovarian cyst TECHNIQUE: . Transabdominal sonographic images of the pelvis were acquired. Date of LMP: 1 week ago EXAM MEASUREMENTS: Uterus: 8.6 x 3.6 x 3.7 cm Endometrial Stripe: 0.7 cm Right Ovary: 3.8 x 2.1 x 2.2 cm Left Ovary: 6.5 x 5.5 x 4.8 cm 1. Uterus: Anteverted wnl 2. Endometrium: wnl 3. Right Ovary: wnl 4. Left Ovary: Cystic area visualized measuring 5.4 x 4.0 x 4.0 cm 5. Bilateral Adnexa: wnl 6. Posterior cul-de-sac: wnl IMPRESSION: 1. Left ovarian cyst may be functional in nature. Consider follow-up study in 6 weeks.
== END | disposition home or self-care (01) ==
LOC: RADUSWWP 14:56
PROVIDERS: ATTEND Internal Medicine
DX: N83.202 Unspecified ovarian cyst, left side (principal)
CPT/HCPCS: 76856

== ENCOUNTER 2019-01-14 18:09 | Inpatient (IN) | payer OTHER ==
[2019-01-14] MEDS ORDERED: MORPHINE SULFATE 4 MG/ML SYRINGE IV STA (18:43)
[2019-01-14] MEDS ORDERED: SODIUM CHLORIDE 0.9% 1,000 ML IV STA (18:43)
[2019-01-14] MEDS ORDERED: DICYCLOMINE 10 MG/ML 2 ML AMP IM STA (18:43)
[2019-01-14] MEDS ORDERED: ONDANSETRON 4 MG/2 ML VIAL IVP STA (18:43)
--- NOTE | 2019-01-14 18:50 | ED ---
Abdominal Pain HPI - General Chief Complaint: Abdominal Pain Stated Complaint: abdominal pain Time Seen by Provider: 01/14/19 18:32 Source: patient Mode of arrival: ambulatory Limitations: no limitations - History of Present Illness Initial Comments: 43-year-old female patient presents to the emergency department today for evaluation of abdominal pain, vomiting, and diarrhea. Patient does have a past medical history significant for IBS and fibromyalgia. Patient states she has had pain similar to this in the past and was diagnosed with a severe intestinal infection. Patient states that the pain started last evening and has been progressively worsening. She describes the pain as a sharp intense cramping type pain. She denies any radiation of the pain to her back. Denies any chest pain, shortness of breath with this. She denies any recent use of antibiotics, recent travel, or sick contacts. Denies any chance of . She denies any fevers but states she has been chilled. Patient denies any recent rash, back pain, numbness, tingling, dizziness, weakness, headache, visual changes, or any other complaints. - Related Data Home Medications Medication Instructions Recorded Confirmed Gabapentin [Neurontin] 400 mg PO TID 05/03/17 01/14/19 Levothyroxine Sodium [Synthroid] 25 mcg PO DAILY 05/03/17 01/14/19 Cyclobenzaprine [Flexeril] 5 mg PO TID 01/21/18 01/14/19 Mirtazapine [Remeron] 15 mg PO HS 01/21/18 01/14/19 Ranitidine HCl [Zantac] 150 mg PO BID 01/21/18 01/14/19 DULoxetine HCL [Cymbalta] 30 mg PO DAILY 01/14/19 01/14/19 Dicyclomine [Bentyl] 20 mg PO QID PRN 01/14/19 01/14/19 Ibuprofen [Motrin] 800 mg PO Q8H PRN 01/14/19 01/14/19 Naltrexone 4.5mg 4.5 mg PO DAILY 01/14/19 01/14/19 Ziprasidone [Geodon] 60 mg PO BID 01/14/19 01/14/19 hydrOXYzine PAMOATE [Vistaril] 50 mg PO HS 01/14/19 01/14/19 lamoTRIgine [LaMICtal] 200 mg PO DAILY 01/14/19 01/14/19 Allergies Allergy/AdvReac Type Severity Reaction Status Date / Time cefaclor [From [facility]] Allergy Anaphylaxis Verified 01/14/19 18:35 prednisone Allergy Rapid Verified 01/14/19 18:35 Heart Rate Review of Systems ROS Statement: Those systems with pertinent positive or pertinent negative responses have been documented in the HPI. ROS Other: All systems not noted in ROS Statement are negative. Past Medical History Past Medical History: No Reported History, Fibromyalgia, GERD/Reflux, Thyroid Disorder Additional Past Medical History / Comment(s): Fibromyalgia multiple joints, IBS , sphincterof Oddi dysfunction-caused elevated LFT, pt has had cholecystectomy, hypothyroid, chronic low back pain. History of Any Multi-Drug Resistant Organisms: MRSA Date of last positivie culture/infection: 2009 MDRO Source:: GROIN Past Surgical History: Cholecystectomy Additional Past Surgical History / Comment(s): R BREAST U/S GUIDED BREAST BX THEN CYSTECTOMY, CERVICAL FUSION, SINUS X2, EGD/COLONOSCOPY Past Anesthesia/Blood Transfusion Reactions: Postoperative Nausea & Vomiting ( PONV) Past Psychological History: Bipolar, Depression Smoking Status: Current every day smoker Past Alcohol Use History: None Reported Past Drug Use History: None Reported - Past Family History Father Family Medical History: Cancer Additional Family Medical History / Comment(s): SKIN CANCER Mother Family Medical History: Fibromyalgia Additional Family Medical History / Comment(s): Mother is bipolar. General Exam Limitations: no limitations General appearance: alert, in no apparent distress, other (This is a well- developed, well-nourished adult female patient in no acute distress. Vital signs upon presentation are temperature 97.9F, pulse 80, respirations 18, blood pressure 164/91, pulse ox 99% on room air.) Eye exam: Present: normal appearance, PERRL, EOMI. Absent: scleral icterus, conjunctival injection, periorbital swelling ENT exam: Present: normal exam, normal oropharynx, mucous membranes moist Respiratory exam: Present: normal lung sounds bilaterally. Absent: respiratory distress, wheezes, rales, rhonchi, stridor Cardiovascular Exam: Present: regular rate, normal rhythm, normal heart sounds. Absent: systolic murmur, diastolic murmur, rubs, gallop, clicks GI/Abdominal exam: Present: soft, tenderness (Midepigastric and suprapubic tenderness), normal bowel sounds. Absent: distended, guarding, rebound, rigid Neurological exam: Present: alert, oriented X3, CN II-XII intact Psychiatric exam: Present: normal affect, normal mood Skin exam: Present: warm, dry, intact, normal color. Absent: rash Course Vital Signs 01/14/19 01/14/19 18:14 21:03 Temperature 97.9 F Pulse Rate 80 72 Respiratory 18 16 Rate Blood Pressure 164/91 121/84 O2 Sat by Pulse 99 100 Oximetry Medical Decision Making - Medical Decision Making 43-year-old female patient presented to the emergency department today for evaluation of abdominal pain and vomiting. Physical examination did reveal midepigastric and suprapubic abdominal tenderness. Patient is afebrile, vital signs stable. Labs reviewed and did reveal elevated white blood cell count at 13.6, elevated lipase at 1100. Patient has no history of pancreatitis. Denies any alcohol use. She has had cholecystectomy. KUB x-ray was unremarkable. Ultrasound shows no dilated ducts or stones. She'll be admitted for acute pancreatitis for IV hydration and pain management. She'll be nothing by mouth. - Lab Data Result diagrams: 01/14/19 19:11 01/14/19 19:11 Lab Results 01/14/19 01/14/19 01/14/19 Range/Units 19:11 19:11 19:11 WBC 13.6 H (3.8-10.6) k/uL RBC 4.99 (3.80-5.40) m/uL Hgb 15.2 (11.4-16.0) gm/dL Hct 43.7 (34.0-46.0) % MCV 87.5 (80.0-100.0) fL MCH 30.5 (25.0-35.0) pg MCHC 34.8 (31.0-37.0) g/dL RDW 13.1 (11.5-15.5) % Plt Count 279 (150-450) k/uL Neutrophils % 81 % Lymphocytes % 12 % Monocytes % 5 % Eosinophils % 1 % Basophils % 0 % Neutrophils # 11.0 H (1.3-7.7) k/uL Lymphocytes # 1.6 (1.0-4.8) k/uL Monocytes # 0.6 (0-1.0) k/uL Eosinophils # 0.2 (0-0.7) k/uL Basophils # 0.1 (0-0.2) k/uL Sodium 142 (137-145) mmol/L Potassium 3.9 (3.5-5.1) mmol/L Chloride 108 H (98-107) mmol/L Carbon Dioxide 24 (22-30) mmol/L Anion Gap 10 mmol/L BUN 10 (7-17) mg/dL Creatinine 0.77 (0.52-1.04) mg/dL Est GFR (CKD-EPI)AfAm >90 (>60 ml/min/1.73 sqM) Est GFR (CKD-EPI)NonAf >90 (>60 ml/min/1.73 sqM) Glucose 103 H (74-99) mg/dL Plasma Lactic Acid Jose 1.2 (0.7-2.0) mmol/L Calcium 9.8 (8.4-10.2) mg/dL Total Bilirubin 1.0 (0.2-1.3) mg/dL AST 21 (14-36) U/L ALT 25 (9-52) U/L Alkaline Phosphatase 85 (38-126) U/L Troponin I (0.000-0.034) ng/mL Total Protein 7.5 (6.3-8.2) g/dL Albumin 4.5 (3.5-5.0) g/dL Amylase 140 H (30-110) U/L Lipase 1195 H (23-300) U/L Urine Color Urine Appearance (Clear) Urine pH (5.0-8.0) Ur Specific [place] (1.001-1.035) Urine Protein (Negative) Urine Glucose (UA) (Negative) Urine Ketones (Negative) Urine Blood (Negative) Urine Nitrite (Negative) Urine Bilirubin (Negative) Urine Urobilinogen (<2.0) mg/dL Ur Leukocyte Esterase (Negative) Urine HCG, Qual (Not Detectd) 01/14/19 01/14/19 01/14/19 Range/Units 19:11 19:32 19:32 WBC (3.8-10.6) k/uL RBC (3.80-5.40) m/uL Hgb (11.4-16.0) gm/dL Hct (34.0-46.0) % MCV (80.0-100.0) fL MCH (25.0-35.0) pg MCHC (31.0-37.0) g/dL RDW (11.5-15.5) % Plt Count (150-450) k/uL Neutrophils % % Lymphocytes % % Monocytes % % Eosinophils % % Basophils % % Neutrophils # (1.3-7.7) k/uL Lymphocytes # (1.0-4.8) k/uL Monocytes # (0-1.0) k/uL Eosinophils # (0-0.7) k/uL Basophils # (0-0.2) k/uL Sodium (137-145) mmol/L Potassium (3.5-5.1) mmol/L Chloride (98-107) mmol/L Carbon Dioxide (22-30) mmol/L Anion Gap mmol/L BUN (7-17) mg/dL Creatinine (0.52-1.04) mg/dL Est GFR (CKD-EPI)AfAm (>60 ml/min/1.73 sqM) Est GFR (CKD-EPI)NonAf (>60 ml/min/1.73 sqM) Glucose (74-99) mg/dL Plasma Lactic Acid Jose (0.7-2.0) mmol/L Calcium (8.4-10.2) mg/dL Total Bilirubin (0.2-1.3) mg/dL AST (14-36) U/L ALT (9-52) U/L Alkaline Phosphatase (38-126) U/L Troponin I <0.012 (0.000-0.034) ng/mL Total Protein (6.3-8.2) g/dL Albumin (3.5-5.0) g/dL Amylase (30-110) U/L Lipase (23-300) U/L Urine Color Yellow Urine Appearance Clear (Clear) Urine pH 8.0 (5.0-8.0) Ur Specific [place] 1.017 (1.001-1.035) Urine Protein Trace H (Negative) Urine Glucose (UA) Negative (Negative) Urine Ketones 3+ H (Negative) Urine Blood Negative (Negative) Urine Nitrite Negative (Negative) Urine Bilirubin Negative (Negative) Urine Urobilinogen 4.0 (<2.0) mg/dL Ur Leukocyte Esterase Negative (Negative) Urine HCG, Qual Not Detected (Not Detectd) - EKG Data -: EKG Interpreted by Nm EKG Comments: EKG obtained at 1910 shows normal sinus rhythm with a ventricular rate is 65, MD interval 162, QR jehovah's witness 98, QT 422, QTc 438. No evidence of ST elevation or depression. - Radiology Data Radiology results: report reviewed, image reviewed KUB x-ray of the abdomen is obtained. Report was reviewed in its entirety. Impression by Dr. Najera shows nonacute abdomen with no change. Ultrasound of the abdomen was obtained. Report was reviewed in its entirety. Impression by Dr. Najera shows cholecystectomy. No dilated ducts. Negative exam. No free fluid. Disposition Clinical Impression: Acute pancreatitis Disposition: ADMITTED IP TO THIS [facility] Condition: Serious Referrals: Gabriel Ponce MD [Primary Care Provider] - 1-2 days Decision to Admit Reason: Admit from EC Decision Date: 01/14/19 Decision Time: 21:32
[2019-01-14 19:36] LABS: Basophils # (A) 0.1 k/uL (0-0.2); Basophils % (A) 0 %; Eosinophils # (A) 0.2 k/uL (0-0.7); Eosinophils % (A) 1 %; HCT 43.7 % (34.0-46.0); HGB 15.2 gm/dL (11.4-16.0); Lymphocytes # (A) 1.6 k/uL (1.0-4.8); Lymphocytes % (A) 12 %; MCH 30.5 pg (25.0-35.0); MCHC 34.8 g/dL (31.0-37.0); MCV 87.5 fL (80.0-100.0); Mean Platelet Volume 7.6; Monocytes # (A) 0.6 k/uL (0-1.0); Monocytes % (A) 5 %; Neutrophils % (A) 81 %; Platelet Count 279 k/uL (150-450); RBC 4.99 m/uL (3.80-5.40); RDW 13.1 % (11.5-15.5); WBC 13.6 k/uL (3.8-10.6)
[2019-01-14 19:46] LABS: ALT 25 U/L (9-52); AST 21 U/L (14-36); Albumin 4.5 g/dL (3.5-5.0); Alkaline Phosphatase 85 U/L (38-126); Amylase 140 U/L (30-110); Anion Gap 10 mmol/L; Blood Urea Nitrogen 10 mg/dL (7-17); Calcium 9.8 mg/dL (8.4-10.2); Carbon Dioxide 24 mmol/L (22-30); Chloride 108 mmol/L (98-107); Glucose 103 mg/dL (74-99); Lipase 1195 U/L (23-300); Potassium 3.9 mmol/L (3.5-5.1); Sodium 142 mmol/L (137-145); Total Protein 7.5 g/dL (6.3-8.2)
[2019-01-14 19:47] LABS: Appearance,Urine Clear (Clear); Bilirubin,Urine Negative (Negative); Blood,Urine Negative (Negative); Color,Urine Yellow; Glucose,Urine (UA) Negative (Negative); Ketones,Urine 3+ (Negative); Leukocyte Esterase,Urine Negative (Negative); Nitrite,Urine Negative (Negative); Protein,Urine Trace (Negative); Specific Gravity,Urine 1.017 (1.001-1.035)
--- NOTE | 2019-01-14 20:31 | XR ---
Abdomen single view. History nausea and vomiting. Comparison 02/03/2018. FINDINGS: 2 views upright were obtained. Bowel gas pattern is normal. There is no sign of intestinal obstructio n or pneumoperitoneum. Fecal pattern is normal. There are clips from cholecystectomy. There is no zee dence of a mass. Lung bases are clear. There are no pathologic calcifications over the kidneys. IMPRESSION: Nonacute abdomen. No change.
--- NOTE | 2019-01-14 21:26 | US ---
EXAMINATION TYPE: US abdomen limited DATE OF EXAM: 01/14/2019 COMPARISON: NONE CLINICAL HISTORY: Pain; Pancreatitis. Pain, IBS,pancreatitis cholecystectomy. EXAM MEASUREMENTS: Liver Length: 15 cm Gallbladder Wall: Surgically absent cm CBD: 0.5 cm Right Kidney: 10.8 x 4.7 x 4.6 cm Pancreas: wnl Liver: wnl Gallbladder: Surgically absent CBD: wnl Right Kidney: wnl IMPRESSION: Cholecystectomy. No dilated ducts. Negative exam. No free fluid.
[2019-01-14] MEDS ORDERED: ONDANSETRON 4 MG/2 ML VIAL IVP PRN (21:34)
[2019-01-14] MEDS ORDERED: NALOXONE 0.4 MG/ML 1 ML VIAL IV PRN (21:34)
[2019-01-14 23:04] VITALS: BMI 24.3
[2019-01-14] MEDS: SODIUM CHLORIDE 0.9% 1,000 ML IV SCH (23:30)
[2019-01-14] MEDS: MORPHINE SULFATE 4 MG/ML SYRINGE IV PRN (23:31)
[2019-01-15] MEDS: SODIUM CHLORIDE 0.9% 1,000 ML IV SCH ×3 (04:15→17:20)
[2019-01-15] MEDS: MORPHINE SULFATE 4 MG/ML SYRINGE IV PRN ×4 (04:20→22:20)
[2019-01-15] MEDS: LEVOTHYROXINE 25 MCG TAB PO SCH (06:25)
--- NOTE | 2019-01-15 06:45 | P.HPIM ---
History of Present Illness H&P Date: 01/15/19 Chief Complaint: Abdominal pain nausea vomiting 43-year-old female with history of IBS and fibromyalgia Patient presented with 2 day history of epigastric abdominal pain associated with repeated nausea vomiting and diarrhea denies any hematemesis or bilious vomiting denies any melena or blood in her bowel movements. She has similar event in the past when she was diagnosed with intestinal infection. She was concerned and came to the hospital she describes the pain as 8 out of 10 in severity achy epigastric pain nonradiating. Patient couldn't eat or drink anything as she felt very nauseated and throws up immediately. Upon further testing in the ER shows found to have elevated lipase and white count and was admitted for diagnosis of acute pancreatitis. Ultrasound of the abdomen performed showed evidence of cholecystectomy with no other abnormalities at this point. Patient denies any trauma to the abdomen denies any alcohol intake. Patient denies any history of pancreatitis in the past Otherwise patient denies any chest pain or trouble breathing denies any recent traveling or sick contacts Review of Systems Pertinent positives as noted in HPI. All other systems were reviewed and are negative Past Medical History Past Medical History: No Reported History, Fibromyalgia, GERD/Reflux, Thyroid Disorder Additional Past Medical History / Comment(s): Fibromyalgia multiple joints, IBS , sphincterof Oddi dysfunction-caused elevated LFT, pt has had cholecystectomy, hypothyroid, chronic low back pain. History of Any Multi-Drug Resistant Organisms: MRSA Date of last positivie culture/infection: 2009 MDRO Source:: GROIN Past Surgical History: Cholecystectomy Additional Past Surgical History / Comment(s): R BREAST U/S GUIDED BREAST BX THEN CYSTECTOMY, CERVICAL FUSION, SINUS X2, EGD/COLONOSCOPY Past Anesthesia/Blood Transfusion Reactions: Postoperative Nausea & Vomiting ( PONV) Past Psychological History: Bipolar, Depression Additional Psychological History / Comment(s): lives with her mother. Does not work at this time. Did not relate to children. No animal exposures. The experience. Positive tobacco use. Denies current recreational drug use Smoking Status: Current every day smoker Past Alcohol Use History: None Reported Additional Past Alcohol Use History / Comment(s): SMOKES 1PDD ON AND OFF FROM AGE 18 Past Drug Use History: None Reported Additional Drug Use History / Comment(s): MEDICAL MARIJUANA USE everyday - Past Family History Father Family Medical History: Cancer, Diabetes Mellitus Additional Family Medical History / Comment(s): SKIN CANCER Mother Family Medical History: Fibromyalgia Additional Family Medical History / Comment(s): Mother is bipolar. Medications and Allergies Home Medications Medication Instructions Recorded Confirmed Type Gabapentin [Neurontin] 400 mg PO TID 05/03/17 01/14/19 History Levothyroxine Sodium [Synthroid] 25 mcg PO DAILY 05/03/17 01/14/19 History Cyclobenzaprine [Flexeril] 5 mg PO TID 01/21/18 01/14/19 History Mirtazapine [Remeron] 7.5 mg PO HS 01/21/18 01/14/19 History Ranitidine HCl [Zantac] 150 mg PO BID 01/21/18 01/14/19 History DULoxetine HCL [Cymbalta] 60 mg PO DAILY 01/14/19 01/14/19 History Dicyclomine [Bentyl] 20 mg PO QID PRN 01/14/19 01/14/19 History Ibuprofen [Motrin] 800 mg PO Q8H PRN 01/14/19 01/14/19 History Naltrexone 4.5mg 4.5 mg PO DAILY 01/14/19 01/14/19 History Ziprasidone [Geodon] 60 mg PO BID 01/14/19 01/14/19 History hydrOXYzine PAMOATE [Vistaril] 50 mg PO HS 01/14/19 01/14/19 History lamoTRIgine [LaMICtal] 200 mg PO DAILY 01/14/19 01/14/19 History Allergies Allergy/AdvReac Type Severity Reaction Status Date / Time cefaclor [From [facility]] Allergy Anaphylaxis Verified 01/14/19 18:35 prednisone Allergy Rapid Verified 01/14/19 18:35 Heart Rate adhesive tape AdvReac Rash/Hives Verified 01/14/19 23:10 Physical Exam Vitals: Vital Signs Temp Pulse Pulse Resp BP BP Pulse Ox 01/14/19 23:00 18 01/14/19 22:43 97.4 F L 98 18 137/89 98 01/14/19 22:25 64 16 133/88 98 01/14/19 21:03 72 16 121/84 100 01/14/19 18:14 97.9 F 80 18 164/91 99 Intake and Output 01/14/19 01/14/19 01/15/19 14:59 22:59 06:59 Output Total 200 Balance -200 Output: Urine 200 Other: Voiding Method Toilet Weight 74.843 kg Constitutional: No acute distress, conversant, pleasant Eyes: Anicteric sclerae, moist conjunctiva, no lid-lag Pupils equal round reactive to light ENMT: NC/AT Oropharynx clear, no erythema, exudates Neck: Supple, FROM, no masses, or JVD No carotid bruits No thyromegaly Lungs: Clear to auscultation Clear to percussion Normal respiratory effort, no accessory muscle use Cardiovascular: Heart regular in rate and rhythm, No murmurs, gallops, or rubs No peripheral edema Abdominal: Soft Tenderness to palpation of the epigastric region, voluntary guarding, no rebound or rigidity Abdomen moving with respiration Normoactive bowel sounds No hepatomegaly, No splenomegaly No palpable mass No abdominal wall hernia noted Skin: Normal temperature, tone, texture, turgor No induration No subcutaneous nodules No rash, lesions No ulcers Extremities: No digital cyanosis No clubbing Pedal pulses intact and symmetrical Radial pulses intact and symmetrical No calf tenderness Psychiatric: Alert and oriented to person, place and time Appropriate affect fair judgment Neuro Muscles Strength 5/5 in all 4 extremities Sensation to light touch grossly present throughout Cranial nerves II-XII grossly intact No focal sensory deficits Lymphatics: no palpable cervical or supraclavicular , or inguinal lymph nodes Results CBC & Chem 7: 01/14/19 19:11 01/14/19 19:11 Labs: Abnormal Lab Results - Last 24 Hours (Table) 01/14/19 01/14/19 01/14/19 Range/Units 19:11 19:11 19:32 WBC 13.6 H (3.8-10.6) k/uL Neutrophils # 11.0 H (1.3-7.7) k/uL Chloride 108 H (98-107) mmol/L Glucose 103 H (74-99) mg/dL Amylase 140 H (30-110) U/L Lipase 1195 H (23-300) U/L Urine Protein Trace H (Negative) Urine Ketones 3+ H (Negative) Thrombosis Risk Factor Assmnt - Choose All That Apply Any of the Below Risk Factors Present?: Yes Each Factor Represents 1 point: Age 41-60 years, Hx of IBD, Obesity (BMI >25) Other Risk Factors: No Other congenital or acquired thrombophilia - If yes, enter type in comment: No Thrombosis Risk Factor Assessment Total Risk Factor Score: 3 Thrombosis Risk Factor Assessment Level: Moderate Risk Assessment and Plan Assessment: 43-year-old female with history of IBS admitted as an inpatient with anticipated length of stay more than 48 hours for acute pancreatitis of unknown underlying cause at this point. Plan: Acute pancreatitis unknown underlying cause Abdominal ultrasound unremarkable, evidence of cholecystectomy Denies any alcohol Nothing by mouth IV fluid hydration Check triglyceride, check IgG4 Pain control with opiates IV Follow-up BUN/cr, CBC History of IBS DVT prophylaxis heparin subcu 3 times a day Surrogate decision-maker: Patient mother CODE STATUS: Full code Discussed with: Patient, ER, RN Anticipated discharge: 48-[address]: Home A total of 60 minutes was spent on the care of this complex patient more than 50 % of the time was spent in counseling and care coordination.
[2019-01-15] MEDS: HEPARIN SODIUM,PORCINE 5,000 UNIT/ML 1 ML VIAL SQ SCH ×2 (07:11→16:03)
[2019-01-15] MEDS: GABAPENTIN 400 MG CAP PO SCH ×3 (07:12→22:19)
[2019-01-15] MEDS: DULoxetine HCL 60 MG CAPSULE.DR PO SCH (07:12)
[2019-01-15] MEDS: CYCLOBENZAPRINE 5 MG TAB PO SCH ×3 (07:12→22:19)
[2019-01-15] MEDS: FAMOTIDINE 20 MG TAB PO SCH ×2 (07:12→20:22)
[2019-01-15] MEDS: lamoTRIgine 100 MG TAB PO SCH (07:12)
[2019-01-15 08:16] LABS: Basophils # (A) 0.1 k/uL (0-0.2); Basophils % (A) 0 %; Eosinophils # (A) 0.1 k/uL (0-0.7); Eosinophils % (A) 1 %; HCT 40.3 % (34.0-46.0); HGB 13.3 gm/dL (11.4-16.0); Lymphocytes # (A) 2.1 k/uL (1.0-4.8); Lymphocytes % (A) 15 %; MCH 29.4 pg (25.0-35.0); Mean Platelet Volume 7.2; Monocytes # (A) 0.9 k/uL (0-1.0); Monocytes % (A) 6 %; Neutrophils % (A) 76 %; Platelet Count 273 k/uL (150-450); RBC 4.54 m/uL (3.80-5.40); RDW 13.2 % (11.5-15.5); WBC 14.4 k/uL (3.8-10.6)
[2019-01-15] MEDS: ONDANSETRON 4 MG/2 ML VIAL IVP PRN ×3 (08:18→21:00)
[2019-01-15 08:35] LABS: ALT 54 U/L (9-52); AST 78 U/L (14-36); Albumin 3.5 g/dL (3.5-5.0); Alkaline Phosphatase 69 U/L (38-126); Anion Gap 4 mmol/L; Blood Urea Nitrogen 11 mg/dL (7-17); Calcium 8.7 mg/dL (8.4-10.2); Carbon Dioxide 23 mmol/L (22-30); Chloride 114 mmol/L (98-107); Cholesterol 131 mg/dL (<200); Glucose 109 mg/dL (74-99); HDL Cholesterol 33 mg/dL (40-60); LDL Cholesterol,Calculated 85 mg/dL (0-99); Lipase 1112 U/L (23-300); Potassium 3.6 mmol/L (3.5-5.1); Sodium 141 mmol/L (137-145); Total Bilirubin 1.8 mg/dL (0.2-1.3); Triglycerides 63 mg/dL (<150)
[2019-01-15] MEDS ORDERED: ACETAMINOPHEN TAB 325 MG TAB PO PRN (15:07)
[2019-01-15] MEDS: ZIPRASIDONE 60 MG CAP PO SCH ×2 (15:11→20:25)
[2019-01-15] MEDS ORDERED: MIRTAZAPINE 15 MG TAB PO SCH (21:00)
[2019-01-15] MEDS ORDERED: hydrOXYzine PAMOATE 25 MG CAP PO SCH (21:00)
[2019-01-16] MEDS: SODIUM CHLORIDE 0.9% 1,000 ML IV SCH ×2 (00:45→07:52)
[2019-01-16] MEDS: HEPARIN SODIUM,PORCINE 5,000 UNIT/ML 1 ML VIAL SQ SCH ×3 (00:45→16:15)
[2019-01-16] MEDS: LEVOTHYROXINE 25 MCG TAB PO SCH (06:23)
[2019-01-16] MEDS: lamoTRIgine 100 MG TAB PO SCH (07:53)
[2019-01-16] MEDS: DULoxetine HCL 60 MG CAPSULE.DR PO SCH (07:53)
[2019-01-16] MEDS: CYCLOBENZAPRINE 5 MG TAB PO SCH ×2 (07:54→16:14)
[2019-01-16] MEDS: FAMOTIDINE 20 MG TAB PO SCH (07:54)
[2019-01-16] MEDS: ZIPRASIDONE 60 MG CAP PO SCH (07:54)
[2019-01-16] MEDS: GABAPENTIN 400 MG CAP PO SCH ×2 (07:54→16:14)
[2019-01-16 08:51] VITALS: RESP 16
[2019-01-16 11:12] LABS: IgG Subclass 3 34.3 mg/dL (11.0-85.0)
[2019-01-16 12:18] VITALS: PULSE 85
[2019-01-16 13:50] LABS: Basophils % (A) 1 %; Eosinophils # (A) 0.2 k/uL (0-0.7); Eosinophils % (A) 2 %; HGB 12.1 gm/dL (11.4-16.0); Lymphocytes # (A) 2.5 k/uL (1.0-4.8); Lymphocytes % (A) 25 %; MCH 30.2 pg (25.0-35.0); MCHC 33.7 g/dL (31.0-37.0); MCV 89.6 fL (80.0-100.0); Monocytes # (A) 0.4 k/uL (0-1.0); Monocytes % (A) 5 %; Neutrophils # (A) 6.5 k/uL (1.3-7.7); Neutrophils % (A) 67 %; Platelet Count 235 k/uL (150-450); RBC 4.01 m/uL (3.80-5.40); RDW 13.1 % (11.5-15.5); WBC 9.7 k/uL (3.8-10.6)
[2019-01-16 14:07] LABS: ALT 150 U/L (9-52); AST 98 U/L (14-36); Albumin 3.2 g/dL (3.5-5.0); Alkaline Phosphatase 69 U/L (38-126); Anion Gap 5 mmol/L; Blood Urea Nitrogen 7 mg/dL (7-17); Calcium 8.3 mg/dL (8.4-10.2); Carbon Dioxide 23 mmol/L (22-30); Chloride 112 mmol/L (98-107); Glucose 67 mg/dL (74-99); Potassium 3.5 mmol/L (3.5-5.1); Sodium 140 mmol/L (137-145); Total Bilirubin 0.9 mg/dL (0.2-1.3); Total Protein 5.7 g/dL (6.3-8.2)
[2019-01-16 15:31] VITALS: BP 151/81; TEMP 97.5
== END 2019-01-16 19:58 | disposition home or self-care (01) | DRG 440 ==
LOC: EC 18:09 → 6PED 21:35
PROVIDERS: ADMIT Internal Medicine; ATTEND Internal Medicine
DX: K85.90 Acute pancreatitis without necrosis or infection, unspecified (principal); K58.0 Irritable bowel syndrome with diarrhea; E03.9 Hypothyroidism, unspecified; F32.9 Major depressive disorder, single episode, unspecified; F17.210 Nicotine dependence, cigarettes, uncomplicated; M79.7 Fibromyalgia; Z79.899 Other long term (current) drug therapy; Z79.890 Hormone replacement therapy; Z86.14 Personal history of Methicillin resistant Staphylococcus aureus infection; Z90.49 Acquired absence of other specified parts of digestive tract; Z98.1 Arthrodesis status; Z88.8 Allergy status to other drugs, medicaments and biological substances; Z88.1 Allergy status to other antibiotic agents; Z80.8 Family history of malignant neoplasm of other organs or systems; Z81.8 Family history of other mental and behavioral disorders; Z83.3 Family history of diabetes mellitus
CPT/HCPCS: 36415; 74018; 76705; 80053; 80061; 81003; 81025; 82150; 82787; 83605; 83690; 84484; 85025; 87040; 87077; 87186; 93005; 96361; 96372; 96374; 96375; 99285

== ENCOUNTER 2019-02-03 19:15 | Observation (INO) | payer OTHER ==
--- NOTE | 2019-02-03 19:36 | ED ---
Abdominal Pain HPI - General Source: patient Mode of arrival: ambulatory Limitations: no limitations <Vandana Gonzalez - Last Filed: 02/03/19 23:12> <Tonia Flores - Last Filed: 02/04/19 06:04> - General Chief Complaint: Abdominal Pain Stated Complaint: NVD, ABDOMINAL PAIN Time Seen by Provider: 02/03/19 19:35 - History of Present Illness Initial Comments: 43-year-old male past medical history of IBS, fibromyalgia, previous cholecystectomy, Jayjay is presenting today for chief complaint of epigastric pain that radiates to the back. Patient states that she was discharged 2 weeks ago after diagnosis of pancreatitis. Patient states she began experiencing identical symptoms to when she was diagnosed with pacreatitis is the past last night around 9 PM. Sharp stabbing/burning pain in epigastric region, increases wtih eating. Patient states she has been only drinking water. She states the pain has increased since has been constant. She denies any abdominal pain of the lower abdomen/pelvic region, abnormal vaginal bleeding or discharge. Patient denies fever, admits to nausea. She denies chest pain, dyspnea, dyspnea exertion, dizziness, headache, diplopia, numbness, tingling, emesis, melena, he matochezia. Patient does admit to diarrhea, but states she has history of IBS. Upon arrival patient appears uncomfortable however nontoxic and in no acute distress. (Vandana Gonzalez) - Related Data Home Medications Medication Instructions Recorded Confirmed Gabapentin [Neurontin] 400 mg PO TID 05/03/17 02/04/19 Levothyroxine Sodium [Synthroid] 25 mcg PO DAILY 05/03/17 02/04/19 Cyclobenzaprine [Flexeril] 5 mg PO TID 01/21/18 02/04/19 Mirtazapine [Remeron] 7.5 mg PO HS 01/21/18 02/04/19 Ranitidine HCl [Zantac] 150 mg PO BID 01/21/18 02/04/19 Ziprasidone [Geodon] 60 mg PO BID 01/14/19 02/04/19 hydrOXYzine PAMOATE [Vistaril] 50 mg PO HS PRN 01/14/19 02/04/19 DULoxetine HCL [Cymbalta] 60 mg PO DAILY 02/03/19 02/04/19 lamoTRIgine [LaMICtal] 100 mg PO QAM 02/03/19 02/04/19 lamoTRIgine [LaMICtal] 200 mg PO HS 02/03/19 02/04/19 Allergies Allergy/AdvReac Type Severity Reaction Status Date / Time cefaclor [From [facility]] Allergy Anaphylaxis Verified 02/03/19 19:53 prednisone Allergy Rapid Verified 02/03/19 19:53 Heart Rate adhesive tape AdvReac Rash/Hives Verified 02/03/19 19:53 Review of Systems ROS Other: All systems not noted in ROS Statement are negative. <Vandana Gonzalez - Last Filed: 02/03/19 23:12> ROS Other: All systems not noted in ROS Statement are negative. <Tonia Flores - Last Filed: 02/04/19 06:04> ROS Statement: Those systems with pertinent positive or pertinent negative responses have been documented in the HPI. Past Medical History Past Medical History: No Reported History, Fibromyalgia, GERD/Reflux, Thyroid Disorder Additional Past Medical History / Comment(s): Fibromyalgia multiple joints, IBS, sphincterof Oddi dysfunction-caused elevated LFT, pt has had cholecystectomy, hypothyroid, chronic low back pain, pancreatitis. History of Any Multi-Drug Resistant Organisms: MRSA Date of last positivie culture/infection: 2009 MDRO Source:: GROIN Past Surgical History: Cholecystectomy Additional Past Surgical History / Comment(s): R BREAST U/S GUIDED BREAST BX THEN CYSTECTOMY, CERVICAL FUSION, SINUS X2, EGD/COLONOSCOPY Past Anesthesia/Blood Transfusion Reactions: Postoperative Nausea & Vomiting (PO NV) Past Psychological History: Bipolar, Depression Smoking Status: Current every day smoker Past Alcohol Use History: None Reported Past Drug Use History: Marijuana - Past Family History Father Family Medical History: Cancer, Diabetes Mellitus Additional Family Medical History / Comment(s): SKIN CANCER Mother Family Medical History: Fibromyalgia Additional Family Medical History / Comment(s): Mother is bipolar. <Vandaan Gonzalez - Last Filed: 02/03/19 23:12> General Exam Limitations: no limitations <Vandana Gonzalez - Last Filed: 02/03/19 23:12> - General Exam Comments Initial Comments: General: The patient is awake and alert, in no distress, and does not appear acutely ill. Eye: Pupils are equal, round and reactive to light, extra-ocular movements are intact. No nystagmus. There is normal conjunctiva bilaterally. No signs of icterus. Ears, nose, mouth and throat: There are moist mucous membranes and no oral lesions. Neck: The neck is supple, there is no tenderness or JVD. Cardiovascular: There is a regular rate and rhythm. No murmur, rub or gallop is appreciated. Respiratory: Lungs are clear to auscultation, respirations are non-labored, breath sounds are equal. No wheezes, stridor, rales, or rhonchi. Gastrointestinal: No noted diaphoresis, jaundice, pallor, protecting postures or squirming. Symmetrical pigmentation of abdomen without signs of inflammation. Umbilicus mildline, inverted without swelling. No dilated veins. Abdomen contour obese, no noted abdominal distention. No visible masses. No peristalsis, aortic pulsations, or ventral hernia. Bowel sounds audible in all 4 quadrants, unremarkable. Tenderness to both light and deep palpation of the epigastric region, no other areas of tenderness upon palpation of the abdomen. No pelvic pain to palpation. Liver edge, not palpable. Spleen edge, right and left kidney not palpable. Superior bladder margin non-tender. Special Testing: Negative [place], [place], [place], [place], cutaneous hyperesthesia. Negative Heel Jar test No CVA tenderness. Digital rectal exam deferred.Negative patrick turners or cullens sign Musculoskeletal: Normal ROM, no tenderness. Strength 5/5. Sensation intact. Pulses equal bilaterally 2+. Neurological: A&O x 3. CN II-XII intact, There are no obvious motor or sensory deficits. Coordination appears grossly intact. Speech is normal. Skin: Skin is warm and dry and no rashes or lesions are noted. Psychiatric: Cooperative, appropriate mood & affect, normal judgment. (Vandana Gonzlaez) Course Vital Signs 02/03/19 02/03/19 02/04/19 19:23 23:14 00:14 Temperature 98.1 F 98.0 F 97.8 F Pulse Rate 92 84 Pulse Rate [ 89 Pulse Oximetery ] Respiratory 18 14 14 Rate Blood Pressure 156/92 139/95 Blood Pressure 160/90 [Right Arm] O2 Sat by Pulse 99 98 97 Oximetry Medical Decision Making - Lab Data Result diagrams: 02/03/19 19:40 02/03/19 19:40 <Vandana Gonzalez - Last Filed: 02/03/19 23:12> - Lab Data Result diagrams: 02/03/19 19:40 02/03/19 19:40 <Tonia Flores - Last Filed: 02/04/19 06:04> - Medical Decision Making 43-year-old female presenting for epigastric abdominal pain, she states is identical to when she's had pancreatitis in the past. Patient is on multiple antipsychotic medications, she denies alcohol abuse. Patient denies hyperlipidemia. Patient had previous cholecystectomy. Laboratory studies unrem arkable, lipase within normal limits. CT does not show any findings today for acute pancreatitis or any other acute findings.Patient does have significant tenderness over the epigastric region with mild guarding. No rigidity. Cyst noted on ovary however patient denies a lower abdominal pain, lower abdominal exam benign. Patient continues to have pain despite the dictation therapy. EKG shows no acute findings. At this time after multiple doses of IV analgesics patient will be admitted for intractable pain. Patient be ordered nothing by mouth with IV fluids. GI on consult. Admitted provider contacted, Dr. Kulwinder Izaguirre accepting admission. No further orders. Case discussed in detail. Patient admitted appearing well, agreeable/requested admission to the observation unit. Discussed case with attending provider Dr. Flores who is agreeable with patient care plan. (Vandana Gonzalez) I was available for consultation in the emergency department. The history and physical exam were done by the midlevel provider. I was consulted for this patient's care. I reviewed the case with the midlevel provider and based on their presentation of the patient, I agree with the assessment, medical decision making and plan of care as documented. (Tonia Flores) - Lab Data Lab Results 02/03/19 02/03/19 02/03/19 Range/Units 19:40 19:40 20:25 WBC 10.0 (3.8-10.6) k/uL RBC 5.29 (3.80-5.40) m/uL Hgb 15.4 D (11.4-16.0) gm/dL Hct 46.1 H (34.0-46.0) % MCV 87.1 (80.0-100.0) fL MCH 29.1 (25.0-35.0) pg MCHC 33.4 (31.0-37.0) g/dL RDW 13.0 (11.5-15.5) % Plt Count 381 (150-450) k/uL Neutrophils % 72 % Lymphocytes % 20 % Monocytes % 5 % Eosinophils % 1 % Basophils % 1 % Neutrophils # 7.2 (1.3-7.7) k/uL Lymphocytes # 2.0 (1.0-4.8) k/uL Monocytes # 0.5 (0-1.0) k/uL Eosinophils # 0.1 (0-0.7) k/uL Basophils # 0.1 (0-0.2) k/uL Sodium 141 (137-145) mmol/L Potassium 3.9 (3.5-5.1) mmol/L Chloride 109 H (98-107) mmol/L Carbon Dioxide 22 (22-30) mmol/L Anion Gap 10 mmol/L BUN 6 L (7-17) mg/dL Creatinine 0.72 (0.52-1.04) mg/dL Est GFR (CKD-EPI)AfAm >90 (>60 ml/min/1.73 sqM) Est GFR (CKD-EPI)NonAf >90 (>60 ml/min/1.73 sqM) Glucose 96 (74-99) mg/dL Calcium 9.9 (8.4-10.2) mg/dL Total Bilirubin 0.6 (0.2-1.3) mg/dL AST 19 (14-36) U/L ALT 23 (9-52) U/L Alkaline Phosphatase 92 (38-126) U/L Troponin I (0.000-0.034) ng/mL Total Protein 8.2 (6.3-8.2) g/dL Albumin 4.9 (3.5-5.0) g/dL Amylase 44 (30-110) U/L Lipase 66 (23-300) U/L Urine Color Urine Appearance (Clear) Urine pH (5.0-8.0) Ur Specific [place] (1.001-1.035) Urine Protein (Negative) Urine Glucose (UA) (Negative) Urine Ketones (Negative) Urine Blood (Negative) Urine Nitrite (Negative) Urine Bilirubin (Negative) Urine Urobilinogen (<2.0) mg/dL Ur Leukocyte Esterase (Negative) Urine RBC (0-5) /hpf Urine WBC (0-5) /hpf Ur Squamous Epith Cells (0-4) /hpf Urine Bacteria (None) /hpf Urine Mucus (None) /hpf Urine HCG, Qual Not Detected (Not Detectd) 02/03/19 02/03/19 Range/Units 20:25 21:00 WBC (3.8-10.6) k/uL RBC (3.80-5.40) m/uL Hgb (11.4-16.0) gm/dL Hct (34.0-46.0) % MCV (80.0-100.0) fL MCH (25.0-35.0) pg MCHC (31.0-37.0) g/dL RDW (11.5-15.5) % Plt Count (150-450) k/uL Neutrophils % % Lymphocytes % % Monocytes % % Eosinophils % % Basophils % % Neutrophils # (1.3-7.7) k/uL Lymphocytes # (1.0-4.8) k/uL Monocytes # (0-1.0) k/uL Eosinophils # (0-0.7) k/uL Basophils # (0-0.2) k/uL Sodium (137-145) mmol/L Potassium (3.5-5.1) mmol/L Chloride (98-107) mmol/L Carbon Dioxide (22-30) mmol/L Anion Gap mmol/L BUN (7-17) mg/dL Creatinine (0.52-1.04) mg/dL Est GFR (CKD-EPI)AfAm (>60 ml/min/1.73 sqM) Est GFR (CKD-EPI)NonAf (>60 ml/min/1.73 sqM) Glucose (74-99) mg/dL Calcium (8.4-10.2) mg/dL Total Bilirubin (0.2-1.3) mg/dL AST (14-36) U/L ALT (9-52) U/L Alkaline Phosphatase (38-126) U/L Troponin I <0.012 (0.000-0.034) ng/mL Total Protein (6.3-8.2) g/dL Albumin (3.5-5.0) g/dL Amylase (30-110) U/L Lipase (23-300) U/L Urine Color Yellow Urine Appearance Cloudy H (Clear) Urine pH 6.0 (5.0-8.0) Ur Specific [place] 1.017 (1.001-1.035) Urine Protein Trace H (Negative) Urine Glucose (UA) Negative (Negative) Urine Ketones Negative (Negative) Urine Blood Small H (Negative) Urine Nitrite Negative (Negative) Urine Bilirubin Negative (Negative) Urine Urobilinogen <2.0 (<2.0) mg/dL Ur Leukocyte Esterase Trace H (Negative) Urine RBC 1 (0-5) /hpf Urine WBC 4 (0-5) /hpf Ur Squamous Epith Cells 6 H (0-4) /hpf Urine Bacteria Occasional H (None) /hpf Urine Mucus Many H (None) /hpf Urine HCG, Qual (Not Detectd) - EKG Data EKG Comments: A 12-lead EKG was performed and shows the following: Rate is 75bpm, and rhythm is normal sinus. There are normal QRS complexes and normal R-wave progression. ST segments have no elevation or depression, and SD segments appear normal. SD interval 168 ms, QRS duration 96 ms, QT/QTC 402/448 ms. EKG was interpreted by myself as well as attending provider Dr. Flores. (Vandana Gonzalez) Disposition Is patient prescribed a controlled substance at d/c from ED?: No Time of Disposition: 23:00 Decision to Admit Reason: Admit from EC Decision Date: 02/03/19 Decision Time: 23:00 <Vandana Gonzalez - Last Filed: 02/03/19 23:12> <Tonia Flores - Last Filed: 02/04/19 06:04> Clinical Impression: Intractable pain, Epigastric pain, History of pancreatitis Disposition: ADMITTED IP TO THIS [facility] Condition: Stable
[2019-02-03 20:20] LABS: ALT 23 U/L (9-52); AST 19 U/L (14-36); Albumin 4.9 g/dL (3.5-5.0); Alkaline Phosphatase 92 U/L (38-126); Amylase 44 U/L (30-110); Anion Gap 10 mmol/L; Blood Urea Nitrogen 6 mg/dL (7-17); Calcium 9.9 mg/dL (8.4-10.2); Carbon Dioxide 22 mmol/L (22-30); Chloride 109 mmol/L (98-107); Glucose 96 mg/dL (74-99); Lipase 66 U/L (23-300); Potassium 3.9 mmol/L (3.5-5.1); Sodium 141 mmol/L (137-145); Total Bilirubin 0.6 mg/dL (0.2-1.3); Total Protein 8.2 g/dL (6.3-8.2)
[2019-02-03 20:26] LABS: Basophils # (A) 0.1 k/uL (0-0.2); Basophils % (A) 1 %; Eosinophils # (A) 0.1 k/uL (0-0.7); Eosinophils % (A) 1 %; HCT 46.1 % (34.0-46.0); Lymphocytes % (A) 20 %; MCH 29.1 pg (25.0-35.0); MCHC 33.4 g/dL (31.0-37.0); MCV 87.1 fL (80.0-100.0); Monocytes # (A) 0.5 k/uL (0-1.0); Monocytes % (A) 5 %; Neutrophils # (A) 7.2 k/uL (1.3-7.7); Neutrophils % (A) 72 %; Platelet Count 381 k/uL (150-450); RBC 5.29 m/uL (3.80-5.40)
[2019-02-03 20:28] LABS: HGB 15.4 gm/dL (11.4-16.0)
[2019-02-03] MEDS: MORPHINE SULFATE 4 MG/ML SYRINGE IVP PRN (20:29)
[2019-02-03 20:32] LABS: Appearance,Urine Cloudy (Clear); Bacteria,Urine Occasional /hpf; Bilirubin,Urine Negative (Negative); Blood,Urine Small (Negative); Color,Urine Yellow; Glucose,Urine (UA) Negative (Negative); Ketones,Urine Negative (Negative); Leukocyte Esterase,Urine Trace (Negative); Mucus,Urine Many /hpf; Nitrite,Urine Negative (Negative); Protein,Urine Trace (Negative); RBC,Urine 1 /hpf (0-5); Specific Gravity,Urine 1.017 (1.001-1.035); Squamous Epithelial Cell,Urine 6 /hpf (0-4); Urobilinogen,Urine <2.0 mg/dL (<2.0); WBC,Urine 4 /hpf (0-5)
[2019-02-03] MEDS ORDERED: ONDANSETRON 4 MG/2 ML VIAL IVP STA (21:00)
--- NOTE | 2019-02-03 21:45 | CT ---
EXAMINATION TYPE: CT abdomen pelvis wo con DATE OF EXAM: 02/03/2019 COMPARISON: CT 02/03/2018 HISTORY: abdominal pain, hx of pancreatitis CT DLP: 395.9 mGycm Automated exposure control for dose reduction was used. TECHNIQUE: Helical acquisition of images was performed from the lung bases through the pelvis. FINDINGS: Within the limitations of noncontrast CT, the following observations are made: LUNG BASES: No significant abnormality is appreciated. LIVER/GB: No significant abnormality is appreciated. PANCREAS: No significant abnormality is seen. No manifestation of pancreatitis. SPLEEN: No significant abnormality is seen. ADRENALS: No significant abnormality is seen. KIDNEYS: No significant abnormality is seen. No hydronephrosis or either ureter. PERITONEAL CAVITY: No pneumoperitoneum or fluid. RETROPERITONEAL ADENOPATHY: None visualized REPRODUCTIVE ORGANS: No findings. Tampon noted, right of midline. 5 cm left adnexal low attenuation m ass noted, which can be further characterized with nonemergent Doppler ultrasound. This was seen as a 4.5 cm cystic mass on the comparison CT. URINARY BLADDER: No significant abnormality is seen. PELVIC ADENOPATHY: None visualized. OSSEOUS STRUCTURES: No acute process. BOWEL: No significant abnormality is seen. IMPRESSION: No acute process.
[2019-02-03] MEDS ORDERED: HYDROmorphone 0.5 MG/0.5 ML SYRINGE IVP STA (22:08)
[2019-02-03] MEDS ORDERED: NALOXONE 0.4 MG/ML 1 ML VIAL IV PRN (22:56)
[2019-02-03] MEDS: SODIUM CHLORIDE 0.9% 1,000 ML IV SCH (23:12)
--- NOTE | 2019-02-03 23:33 | XR ---
EXAM: XR Chest, 2 Views CLINICAL HISTORY: Pain TECHNIQUE: Frontal and lateral views of the chest. COMPARISON: 01/21/2018 FINDINGS: Lungs: Unremarkable. No consolidation. Pleural space: Unremarkable. No pneumothorax. Heart: Unremarkable. No cardiomegaly. Mediastinum: Unremarkable. Bones/joints: No acute osseous abnormality. IMPRESSION: No acute cardiopulmonary process.
[2019-02-04] MEDS ORDERED: MAG HYDROX/AL HYDROX/SIMETH 30 ML CUP PO PRN (00:38)
--- NOTE | 2019-02-04 00:45 | P.HPIM ---
History of Present Illness H&P Date: 02/04/19 Chief Complaint: Epigastric abdominal pain 43-year-old female with history of fibromyalgia, IBS Patient presented to the hospital with 1 day history of epigastric abdominal p ain, she indicated that she always has abdominal discomfort and pain however today pain became worse similar to the attack that she had 2 weeks ago when she was diagnosed with pancreatitis. She described the pain as sharp epigastric 10 out of 10 in severity radiating straight to the back associated with nausea and vomiting she didn't eat all day only sips of water despite that she still threw up. She decided come the hospital for further care. Denies any fevers chills denies any chest pain or trouble breathing denies any coughing denies any GI bleeding. Her bowel movements he normally alternates between diarrhea and constipation currently she is constipated. Denies any urinary symptoms or any focal neurologic deficits. In the ED labs were unremarkable, lipase negative, computed tomography scan of the abdomen was unremarkable I reviewed labs from last admission triglyceride, IgG 4, calcium they were all unremarkable, she had acute pancreatitis last time of unknown etiology Review of Systems Pertinent positives as noted in HPI. All other systems were reviewed and are negative Past Medical History Past Medical History: No Reported History, Fibromyalgia, GERD/Reflux, Thyroid Disorder Additional Past Medical History / Comment(s): Fibromyalgia multiple joints, IBS, sphincterof Oddi dysfunction-caused elevated LFT, pt has had cholecystectomy, hypothyroid, chronic low back pain, pancreatitis. History of Any Multi-Drug Resistant Organisms: MRSA Date of last positivie culture/infection: 2009 MDRO Source:: GROIN Past Surgical History: Cholecystectomy Additional Past Surgical History / Comment(s): R BREAST U/S GUIDED BREAST BX THEN CYSTECTOMY, CERVICAL FUSION, SINUS X2, EGD/COLONOSCOPY Past Anesthesia/Blood Transfusion Reactions: Postoperative Nausea & Vomiting (PONV) Past Psychological History: Bipolar, Depression Smoking Status: Current every day smoker Past Alcohol Use History: None Reported Past Drug Use History: Marijuana - Past Family History Father Family Medical History: Cancer, Diabetes Mellitus Additional Family Medical History / Comment(s): SKIN CANCER Mother Family Medical History: Fibromyalgia Additional Family Medical History / Comment(s): Mother is bipolar. Medications and Allergies Home Medications Medication Instructions Recorded Confirmed Type Gabapentin [Neurontin] 400 mg PO TID 05/03/17 02/03/19 History Levothyroxine Sodium [Synthroid] 25 mcg PO DAILY 05/03/17 02/03/19 History Cyclobenzaprine [Flexeril] 5 mg PO TID 01/21/18 02/03/19 History Mirtazapine [Remeron] 7.5 mg PO HS 01/21/18 02/03/19 History Ranitidine HCl [Zantac] 150 mg PO BID 01/21/18 02/03/19 History Ziprasidone [Geodon] 60 mg PO BID 01/14/19 02/03/19 History hydrOXYzine PAMOATE [Vistaril] 50 mg PO HS PRN 01/14/19 02/03/19 History DULoxetine HCL [Cymbalta] 60 mg PO DAILY 02/03/19 02/03/19 History lamoTRIgine [LaMICtal] 100 mg PO QAM 02/03/19 02/03/19 History lamoTRIgine [LaMICtal] 200 mg PO HS 02/03/19 02/03/19 History Allergies Allergy/AdvReac Type Severity Reaction Status Date / Time cefaclor [From [facility]] Allergy Anaphylaxis Verified 02/03/19 19:53 prednisone Allergy Rapid Verified 02/03/19 19:53 Heart Rate adhesive tape AdvReac Rash/Hives Verified 02/03/19 19:53 Physical Exam Vitals: Vital Signs Temp Pulse Resp BP Pulse Ox 02/03/19 23:14 98.0 F 84 14 139/95 98 02/03/19 19:23 98.1 F 92 18 156/92 99 Intake and Output 02/03/19 02/03/19 02/04/19 14:59 22:59 06:59 Other: Weight 73.936 kg Constitutional: No acute distress, conversant, pleasant Eyes: Anicteric sclerae, moist conjunctiva, no lid-lag Pupils equal round reactive to light ENMT: NC/AT Oropharynx clear, no erythema, exudates Neck: Supple, FROM, no masses, or JVD No carotid bruits No thyromegaly Lungs: Clear to auscultation Clear to percussion Normal respiratory effort, no accessory muscle use Cardiovascular: Heart regular in rate and rhythm, No murmurs, gallops, or rubs No peripheral edema Abdominal: Soft Epigastric tenderness to palpation with voluntary guarding nor rebound or rigidity Abdomen moving with respiration Normoactive bowel sounds No hepatomegaly, No splenomegaly No palpable mass No abdominal wall hernia noted Skin: Normal temperature, tone, texture, turgor No induration No subcutaneous nodules No rash, lesions No ulcers Extremities: No digital cyanosis No clubbing Pedal pulses intact and symmetrical Radial pulses intact and symmetrical No calf tenderness Psychiatric: Alert and oriented to person, place and time Appropriate affect fair judgment Neuro Muscles Strength 5/5 in all 4 extremities Sensation to light touch grossly present throughout Cranial nerves II-XII grossly intact No focal sensory deficits Lymphatics: no palpable cervical or supraclavicular , or inguinal lymph nodes Results CBC & Chem 7: 02/03/19 19:40 02/03/19 19:40 Labs: Abnormal Lab Results - Last 24 Hours (Table) 02/03/19 02/03/19 02/03/19 Range/Units 19:40 19:40 20:25 Hct 46.1 H (34.0-46.0) % Chloride 109 H (98-107) mmol/L BUN 6 L (7-17) mg/dL Urine Appearance Cloudy H (Clear) Urine Protein Trace H (Negative) Urine Blood Small H (Negative) Ur Leukocyte Esterase Trace H (Negative) Ur Squamous Epith Cells 6 H (0-4) /hpf Urine Bacteria Occasional H (None) /hpf Urine Mucus Many H (None) /hpf Assessment and Plan Assessment: 43-year-old female with history of IBS, admitted in observation with anticipated length of stay less than 48 hours for epigastric abdominal pain of unknown etiology patient had an attack of acute pancreatitis 2 weeks ago. Patient reports that she has long history of epigastric discomfort GERD and IBS. Patient labs unremarkable, lipase unremarkable, computed tomography scan of the abdomen unremarkable. Plan: Epigastric discomfort and pain unknown etiology at this point, patient with recent history of acute pancreatitis 2 weeks ago, long history of IBS, long history of GERD Possible gastritis with long history of GERD, GI to evaluate the patient regarding recommendations for EGD could be done as an outpatient Pain control IV fluid hydration Nothing by mouth Follow-up labs Follow-up lipase in the morning Await GI recommendations I educated the patient's regarding fiber intake and water intake and IBS to have regular bowel movements, also discussed possibility of lactose intolerance, DVT prophylaxis heparin subcu 3 times a day Preformed a thorough record review from recent hospitalization 2 weeks ago for acute pancreatitis of unknown etiology all her labs at that time were unremarkable except for elevated lipase, Surrogate decision-maker: Patient mother CODE STATUS: Full code Discussed with: Patient, ER Anticipated discharge: <48hours Anticipated discharge place: Home A total of 60 minutes was spent on the care of this complex patient more than 50% of the time was spent in counseling and care coordination.
[2019-02-04 01:28] VITALS: BMI 23.6
[2019-02-04] MEDS: HYDROmorphone 0.5 MG/0.5 ML SYRINGE IVP PRN ×2 (01:29→06:41)
[2019-02-04] MEDS: PANTOPRAZOLE 40 MG TABLET PO SCH ×2 (01:40→06:42)
[2019-02-04] MEDS: ONDANSETRON 4 MG/2 ML VIAL IVP PRN ×2 (06:41→19:50)
[2019-02-04] MEDS: LEVOTHYROXINE 50 MCG TAB PO SCH (06:42)
[2019-02-04] MEDS: SODIUM CHLORIDE 0.9% 1,000 ML IV SCH ×2 (07:54→17:39)
[2019-02-04] MEDS ORDERED: ACETAMINOPHEN TAB 325 MG TAB PO PRN (08:21)
[2019-02-04 08:47] LABS: Basophils % (A) 0 %; Eosinophils # (A) 0.1 k/uL (0-0.7); Eosinophils % (A) 1 %; HCT 38.4 % (34.0-46.0); HGB 12.8 gm/dL (11.4-16.0); Lymphocytes # (A) 1.7 k/uL (1.0-4.8); Lymphocytes % (A) 20 %; MCH 29.2 pg (25.0-35.0); MCHC 33.4 g/dL (31.0-37.0); MCV 87.6 fL (80.0-100.0); Mean Platelet Volume 7.5; Monocytes # (A) 0.6 k/uL (0-1.0); Monocytes % (A) 7 %; Neutrophils # (A) 5.8 k/uL (1.3-7.7); Neutrophils % (A) 70 %; Platelet Count 312 k/uL (150-450); RBC 4.39 m/uL (3.80-5.40); RDW 13.3 % (11.5-15.5); WBC 8.3 k/uL (3.8-10.6)
[2019-02-04] MEDS: HEPARIN SODIUM,PORCINE 5,000 UNIT/ML 1 ML VIAL SQ SCH ×2 (08:52→16:34)
[2019-02-04 09:02] LABS: Anion Gap 2 mmol/L; Blood Urea Nitrogen 6 mg/dL (7-17); Calcium 8.7 mg/dL (8.4-10.2); Carbon Dioxide 26 mmol/L (22-30); Chloride 112 mmol/L (98-107); Glucose 99 mg/dL (74-99); Lipase 225 U/L (23-300); Potassium 3.8 mmol/L (3.5-5.1); Sodium 140 mmol/L (137-145)
[2019-02-04] MEDS: MORPHINE SULFATE 4 MG/ML SYRINGE IVP PRN ×3 (10:39→20:59)
[2019-02-04] MEDS: PANTOPRAZOLE 40 MG/10 ML VIAL IVP SCH ×2 (12:21→21:04)
[2019-02-04] MEDS: HYDROcodone/APAP 5-325MG 1 EACH TAB PO PRN ×2 (13:04→19:51)
--- NOTE | 2019-02-04 14:46 | P.CONS ---
History of Present Illness - Reason for Consult Consult date: 02/04/19 Abdominal pain Requesting physician: Dante Izaguirre - Chief Complaint Possible chronic pancreatitis - History of Present Illness 43-year-old female with a past medical history bipolar depression, marijuana usage, fibromyalgia, GERD, IBS, cholecystectomy, idiopathic pancreatitis first episode 2017, chronic back pain presents with acute abdominal pain without hematemesis hematochezia melena. Recent episode of pancreatitis one month ago. Lipase was 1195, amylase 140, LFTs normal. Intermittent mixed bowel movements diarrhea and constipation. White count 8.3-10. Hemoglobin 12.8. LFTs amylase lipase within normal limits. Troponin less than 0.01. Urinalysis many mucus occasional bacteria trace leukocyte esterase and small blood. HCG not detected. CT abdomen and pelvis reported no acute findings. Denies ETOH, ASA but take Motrin 800 mg 3-4 days a week for chronic pain. Home medications include Zantac 150 mg twice a day. Review of Systems Constitutional: Denies fever, chills, sweats, weight gain, or loss. HEENT: Negative for migraines, blurred vision or loss, earaches, drainage, tinnitus, oral mucosal lesions, dysphagia, or odynophagia. CARDIAC: Negative for chest pain, arrhythmias, or palpitation. RESPIRATORY: Negative for shortness of breath, hemoptysis, cough, or sputum production. GI: See HPI for pertinent findings. : Negative for hematuria, urgency, frequency, polyuria, or dysuria. GYNc: Denies possibility of . Negative vaginal discharge. MUSCULOSKELETAL: Negative for muscle aches, swelling, arthritis, and arthralgias. NEUROLOGIC: Negative for stroke or TIA. ENDOCRINE: Negative for thyroid problems. SKIN: Negative for rash or itching. PSYCHIATRIC: Negative history for depression and anxiety Past Medical History Past Medical History: Fibromyalgia, GERD/Reflux, Thyroid Disorder Additional Past Medical History / Comment(s): Fibromyalgia multiple joints, IBS, sphincterof Oddi dysfunction-caused elevated LFT, pt has had cholecystectomy, hypothyroid, chronic low back pain, pancreatitis. History of Any Multi-Drug Resistant Organisms: MRSA Year Discovered:: 2009 MDRO Source:: GROIN Past Surgical History: Cholecystectomy Additional Past Surgical History / Comment(s): R BREAST U/S GUIDED BREAST BX THEN CYSTECTOMY, CERVICAL FUSION, SINUS X2, EGD/COLONOSCOPY Past Anesthesia/Blood Transfusion Reactions: Postoperative Nausea & Vomiting (PONV) Past Psychological History: Bipolar, Depression Additional Psychological History / Comment(s): lives with her mother. Does not work at this time. Did not relate to children. No animal exposures. The experience. Positive tobacco use. Denies current recreational drug use Smoking Status: Current every day smoker Past Alcohol Use History: None Reported Additional Past Alcohol Use History / Comment(s): SMOKES 1PDD ON AND OFF FROM AGE 18 Past Drug Use History: Marijuana Additional Drug Use History / Comment(s): MEDICAL MARIJUANA USE everyday - Past Family History Father Family Medical History: Cancer, Diabetes Mellitus Additional Family Medical History / Comment(s): SKIN CANCER Mother Family Medical History: Fibromyalgia Additional Family Medical History / Comment(s): Mother is bipolar. Medications and Allergies Home Medications Medication Instructions Recorded Confirmed Type Gabapentin [Neurontin] 400 mg PO TID 05/03/17 02/04/19 History Levothyroxine Sodium [Synthroid] 25 mcg PO DAILY 05/03/17 02/04/19 History Cyclobenzaprine [Flexeril] 5 mg PO TID 01/21/18 02/04/19 History Mirtazapine [Remeron] 7.5 mg PO HS 01/21/18 02/04/19 History Ranitidine HCl [Zantac] 150 mg PO BID 01/21/18 02/04/19 History Ziprasidone [Geodon] 60 mg PO BID 01/14/19 02/04/19 History hydrOXYzine PAMOATE [Vistaril] 50 mg PO HS PRN 01/14/19 02/04/19 History DULoxetine HCL [Cymbalta] 60 mg PO DAILY 02/03/19 02/04/19 History lamoTRIgine [LaMICtal] 100 mg PO QAM 02/03/19 02/04/19 History lamoTRIgine [LaMICtal] 200 mg PO HS 02/03/19 02/04/19 History Allergies Allergy/AdvReac Type Severity Reaction Status Date / Time cefaclor [From [facility]] Allergy Anaphylaxis Verified 02/03/19 19:53 prednisone Allergy Rapid Verified 02/03/19 19:53 Heart Rate adhesive tape AdvReac Rash/Hives Verified 02/03/19 19:53 Physical Exam Vitals: Vital Signs Temp Pulse Pulse Resp BP BP Pulse Ox 02/04/19 12:31 97.9 F 82 16 146/82 100 02/04/19 08:28 97.9 F 93 16 116/68 97 02/04/19 06:52 97.7 F 77 14 139/91 99 02/04/19 01:50 89 14 02/04/19 00:14 97.8 F 89 14 160/90 97 02/03/19 23:14 98.0 F 84 14 139/95 98 02/03/19 19:23 98.1 F 92 18 156/92 99 Intake and Output 02/03/19 02/04/19 02/04/19 22:59 06:59 14:59 Intake Total 200 Balance 200 Intake: Amount of Fluid Infused ( 200 ml) Other: Voiding Method Toilet # Voids 1 Weight 73.936 kg General appearance: The patient is alert, oriented, in no acute distress. HET: Head is normocephalic and atraumatic. Pupils are equal and reactive. Oropharynx is clear without lesions. Neck: Supple without lymphadenopathy. Trachea midline. Heart: S1 S2. Regular rate and rhythm. Lungs: No crackles or wheezes are heard. Abdomen: Soft, nontender, nondistended with bowel sounds. No peritoneal signs. No palpable organomegaly or masses. Extremities: Normal skin color and turgor. No cyanosis, rash, ulceration, clubbing, or edema. Radial and pedal pulses are 2/4 bilaterally. Neurological: No focal deficits. Strength and sensation are grossly intact. Results CBC & Chem 7: 02/04/19 08:13 02/04/19 08:13 Labs: Abnormal Lab Results - Last 24 Hours (Table) 02/03/19 02/03/19 02/03/19 Range/Units 19:40 19:40 20:25 Hct 46.1 H (34.0-46.0) % Chloride 109 H (98-107) mmol/L BUN 6 L (7-17) mg/dL Urine Appearance Cloudy H (Clear) Urine Protein Trace H (Negative) Urine Blood Small H (Negative) Ur Leukocyte Esterase Trace H (Negative) Ur Squamous Epith Cells 6 H (0-4) /hpf Urine Bacteria Occasional H (None) /hpf Urine Mucus Many H (None) /hpf 02/04/19 Range/Units 08:13 Hct (34.0-46.0) % Chloride 112 H (98-107) mmol/L BUN 6 L (7-17) mg/dL Urine Appearance (Clear) Urine Protein (Negative) Urine Blood (Negative) Ur Leukocyte Esterase (Negative) Ur Squamous Epith Cells (0-4) /hpf Urine Bacteria (None) /hpf Urine Mucus (None) /hpf CT scan - abdomen: report reviewed (Dr. Hoover) Assessment and Plan (1) Epigastric pain Narrative/Plan: 43-year-old female chronic NSAID usage recent hospitalization for acute idiopathic pancreatitis one month ago presents with severe epigastric pain without bleeding or fever. Exacerbation of GERD possible underlying peptic ulcer disease cannot be excluded. Current Visit: Yes Status: Acute Code(s): R10.13 - EPIGASTRIC PAIN SNOMED Code(s): 24250172 (2) History of pancreatitis Current Visit: Yes Status: Acute Code(s): Z87.19 - PERSONAL HISTORY OF OTHER DISEASES OF THE DIGESTIVE SYSTEM SNOMED Code(s): 40564371989123 (3) History of IBS Current Visit: Yes Status: Acute Code(s): Z87.19 - PERSONAL HISTORY OF OTHER DISEASES OF THE DIGESTIVE SYSTEM SNOMED Code(s): 99304728982119 (4) Marijuana use Current Visit: Yes Status: Acute Code(s): F12.90 - CANNABIS USE, UNSPECIFIED, UNCOMPLICATED SNOMED Code(s): 460371815 (5) NSAID long-term use Current Visit: Yes Status: Chronic Code(s): 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 Protonix 40 mg twice daily. Clear liquid diet today. Nothing by mouth for EGD evaluation tomorrow. The automatic seamer has discussed the risks, benefits and alternative therapies for the above-mentioned procedure and for both sedation/analgesia as well as necessary blood product administration, if indicated, as they pertain to this patient. The patient has indicated understanding and acceptance of the risks and procedures discussed. Thank you for this kind referral and the opportunity to participate in the care of your patient. This consultation was discussed with Dr. Hoover. The impression and plan of care have been directed as dictated.
[2019-02-04] MEDS ORDERED: DULoxetine HCL 60 MG CAPSULE.DR PO SCH (16:45)
--- NOTE | 2019-02-04 16:47 | P.PN ---
Progress Note - Text Progress Note Date: 02/04/19 (Delayed charting patient seen at 11am) Hospitalist Interval Note Patient seen and examined at bedside. Patient with complaints of abdominal pain. It is epigastric in nature without radiation. She describes it as a burning pain. State it feels exactly like her pancreatitis did last time. She denies any symptoms of acid reflux. She denies any vomiting but does feel slightly nauseous. She denies any significant diarrhea Vital signs reviewed General: non toxic, mild distress secondary to pain, appears at stated age Derm: warm, dry Head: atraumatic, normocephalic, symmetric Eyes: EOMI, no lid lag, anicteric sclera Mouth: no lip lesion, mucus membranes moist Cardiovascular: S1S2 reg, no murmur, positive posterior tibial pulse bilateral, Lungs: CTA bilateral, no rhonchi, no rales , no accessory muscle use Abdominal: soft, nontender to palpation, no guarding, no appreciable organomegaly Ext: no gross muscle atrophy, no edema, no contractures Neuro: CN II-XI grossly intact, no focal neuro deficits Psych: Alert, oriented, appropriate affect Assessment/Plan: 1. Intractable abdominal pain -DC Dilaudid and continue with morphine, and IV Protonix, await GI evaluation, maintain nothing by mouth status until seen by GI. Continue with IV fluids 2. Fibromyalgia -Resume home medications 3. Hypothyroidism-continue with Synthroid This is an update note for patient , for full note on 02/04 see H and P . There is no charge associated with this note.
[2019-02-04] MEDS: DULoxetine HCL 30 MG CAPSULE.DR PO SCH (17:39)
[2019-02-04] MEDS ORDERED: lamoTRIgine 100 MG TAB PO SCH (21:00)
[2019-02-04] MEDS ORDERED: hydrOXYzine PAMOATE 25 MG CAP PO PRN (21:00)
[2019-02-04] MEDS ORDERED: MIRTAZAPINE 15 MG TAB PO SCH (21:00)
[2019-02-04] MEDS: CYCLOBENZAPRINE 5 MG TAB PO SCH (21:07)
[2019-02-04] MEDS: GABAPENTIN 400 MG CAP PO SCH (21:08)
[2019-02-04] MEDS: ZIPRASIDONE 60 MG CAP PO SCH (21:08)
[2019-02-05] MEDS: HEPARIN SODIUM,PORCINE 5,000 UNIT/ML 1 ML VIAL SQ SCH ×2 (00:11→07:56)
[2019-02-05] MEDS: HYDROcodone/APAP 5-325MG 1 EACH TAB PO PRN (01:38)
[2019-02-05] MEDS: SODIUM CHLORIDE 0.9% 1,000 ML IV SCH (05:33)
[2019-02-05] MEDS: LEVOTHYROXINE 50 MCG TAB PO SCH (06:12)
[2019-02-05] MEDS: PANTOPRAZOLE 40 MG/10 ML VIAL IVP SCH (07:56)
[2019-02-05] MEDS ORDERED: lamoTRIgine 100 MG TAB PO SCH (09:00)
[2019-02-05] MEDS ORDERED: LIDOCAINE 1% INJ 10MG/ML (20 ML MDV) ONE (13:17)
[2019-02-05] MEDS ORDERED: PROPOFOL 10 MG/ML 20 ML VIAL IV ONE (13:17)
[2019-02-05] MEDS ORDERED: IV FLUID CONTINUATION 1,000 ML IV ONE ×2 (13:25)
--- NOTE | 2019-02-05 13:40 | P.PCN ---
Date of Procedure: 02/05/19 Procedure(s) Performed: Procedure: Esophagogastroduodenoscopy and biopsy. Preoperative diagnosis: Recurrent abdominal pain and history of idiopathic pancreatitis. Postoperative diagnosis: 1. Small sliding hiatal hernia with no obvious esophagitis or complicated reflux disease. 2. Mild antral gastritis and minimal duodenitis. 3. Multiple biopsies obtained from the duodenum, antrum and esophagus. Preparation sedation: Was provided by anesthesia. Brief clinical history: The patient is [id number] female with a past medical history bipolar depression, marijuana usage, fibromyalgia, GERD, IBS, cholecystectomy, idiopathic pancreatitis first episode 2016, chronic back pain presents with acute abdominal pain without hematemesis, hematochezia or melena. Recent episode of pancreatitis one month ago. Lipase was 1195, amylase 140, LFTs normal. Intermittent mixed bowel movements diarrhea and constipation. White count 8.3-10. Hemoglobin 12.8. LFTs, amylase and lipase within normal limits. Troponin less than 0.01. Urinalysis many mucus occasional bacteria trace leukocyte esterase and small blood. HCG not detected. CT abdomen and pelvis reported no acute findings. Denies ETOH, ASA but take Motrin 800 mg 3-4 days a week for chronic pain. Home medications include Zantac 150 mg twice a d ay. This evaluation is to assess for peptic ulcer disease or other pathology. Procedure: With the patient on her left lateral decubitus position and after informed consent and adequate sedation, I passed the Olympus-GIF H 190 video upper endoscope through the cricopharyngeus down the esophagus. GE junction was around 36 cm from the incisors and there was a small sliding hiatal hernia with no obvious esophagitis or complicated reflux disease. The endoscope was then passed into the stomach which was insufflated with air and inspected in detail including the retroflex view in the cardia. There was some mottling and erythema in the antrum but no ulcers or erosions. Pyloric channel did not show any ulcers, duodenal bulb showed minimal mottling and erythema, post bulbar area and descending duodenum appeared within normal limits. I obtained biopsies from the duodenum, antrum and esophagus then the endoscope was withdrawn. The patient tolerated the procedure well. Plan: The patient was reassured. Will allow clear liquid diet. Await the biopsy results and further plans based on her course. We will continue to follow with you with interest.
[2019-02-05 14:23] VITALS: TEMP 97.9
[2019-02-05] MEDS: DULoxetine HCL 30 MG CAPSULE.DR PO SCH (14:45)
[2019-02-05] MEDS: ZIPRASIDONE 60 MG CAP PO SCH (14:45)
[2019-02-05] MEDS: GABAPENTIN 400 MG CAP PO SCH (14:45)
[2019-02-05] MEDS: CYCLOBENZAPRINE 5 MG TAB PO SCH (14:45)
--- NOTE | 2019-02-05 15:15 | P.DS ---
Providers Date of admission: 02/04/19 00:14 Expected date of discharge: 02/05/19 Attending physician: Dante Izaguirre MD Consults: 02/03/19 22:56 Consult Physician Routine Consulting Provider: Bret Hoover Consult Reason/Comments: possible chronic pancreatitis Do you want consulting provider notified?: Yes, Notify in am Primary care physician: [facility] Course: 43-year-old female with history of fibromyalgia, IBS Patient presented to the hospital with 1 day history of epigastric abdominal pain, she indicated that she always has abdominal discomfort and pain however today pain became worse similar to the attack that she had 2 weeks ago when she was diagnosed with pancreatitis. She described the pain as sharp epigastric 10 out of 10 in severity radiating straight to the back associated with nausea and vomiting she didn't eat all day only sips of water despite that she still threw up. She decided come the hospital for further care. Denies any fevers chills denies any chest pain or trouble breathing denies any coughing denies any GI bleeding. Her bowel movements he normally alternates between diarrhea and constipation currently she is constipated. Denies any urinary symptoms or any focal neurologic deficits. In the ED labs were unremarkable, lipase negative, computed tomography scan of the abdomen was unremarkable. Gastroenterology was consulted and recommended EGD. EGD showed small sliding hiatal hernia, antral gastritis and minimal duodenitis. Patient was seen and examined prior to discharge. No acute events overnight. Patient reports resolution of her abdominal pain. No nausea or vomiting. Tolerating clear liquid diet well. Underwent EGD this morning without complications. Looking for to going home. General: [non toxic], [no distress], [appears at stated age] Derm: [warm], [dry] Head: [atraumatic], [normocephalic], [symmetric] Eyes: [EOMI], [no lid lag], [anicteric sclera] Mouth: [no lip lesion], [mucus membranes moist] Cardiovascular: [S1S2 reg], [no murmur], [positive posterior tibial pulse bilateral], Lungs: [CTA bilateral], [no rhonchi, no rales] , [no accessory muscle use] Abdominal: [soft], [ nontender to palpation], [no guarding], [no appreciable organomegaly] Ext: [no gross muscle atrophy], [no edema], [no contractures] Neuro: [ CN II-XI grossly intact], [no focal neuro deficits] Psych: [Alert], [oriented], [appropriate affect] Assessment and Plan 1. Abdominal pain, likely gastritis or duodenitis with history of pancreatitis 2. Fibromyalgia 3. Hypothyroidism 4. Bipolar depression 1. Underwent EGD evaluation under GI, antral gastritis, sliding hiatal hernia and duodenitis found. She is to follow-up with GI for biopsy results. Pain management with Tylenol, morphine IV as needed for severe pain. Zofran as needed for nausea or vomiting. Protonic 40 mg by mouth twice a day. 2. Continue Cymbalta. Continue gabapentin. Continue Flexeril. 3. Continue Synthroid. 4. Continue Lamictal, Remeron, Geodon. Patient evaluated for abdominal pain, completely resolved. EGD evaluation performed showing duodenitis, gastritis and hiatal hernia. Patient is to follow-up with GI within 1 week of discharge. Follow-up with PCP within 1-2 days. Pertinent Studies: CT abdomen and pelvis, chest x-ray Procedures: EGD Patient Condition at Discharge: Stable Plan - Discharge Summary Discharge Rx Participant: Yes New Discharge Prescriptions: New Pantoprazole [Protonix] 40 mg PO BID #60 tablet.dr Continue Levothyroxine Sodium [Synthroid] 25 mcg PO DAILY Gabapentin [Neurontin] 400 mg PO TID Mirtazapine [Remeron] 7.5 mg PO HS Cyclobenzaprine [Flexeril] 5 mg PO TID Ziprasidone [Geodon] 60 mg PO BID hydrOXYzine PAMOATE [Vistaril] 50 mg PO HS PRN PRN Reason: Insomnia lamoTRIgine [LaMICtal] 100 mg PO QAM lamoTRIgine [LaMICtal] 200 mg PO HS DULoxetine HCL [Cymbalta] 30 mg PO DAILY Discontinued Ranitidine HCl [Zantac] 150 mg PO BID Discharge Medication List Gabapentin [Neurontin] 400 mg PO TID 05/03/17 [History] Levothyroxine Sodium [Synthroid] 25 mcg PO DAILY 05/03/17 [History] Cyclobenzaprine [Flexeril] 5 mg PO TID 01/21/18 [History] Mirtazapine [Remeron] 7.5 mg PO HS 01/21/18 [History] Ziprasidone [Geodon] 60 mg PO BID 01/14/19 [History] hydrOXYzine PAMOATE [Vistaril] 50 mg PO HS PRN 01/14/19 [History] DULoxetine HCL [Cymbalta] 30 mg PO DAILY 02/03/19 [History] lamoTRIgine [LaMICtal] 100 mg PO QAM 02/03/19 [History] lamoTRIgine [LaMICtal] 200 mg PO HS 02/03/19 [History] Pantoprazole [Protonix] 40 mg PO BID #60 tablet. 02/05/19 [Rx] Follow up Appointment(s)/Referral(s): Gabriel Ponce MD [Primary Care Provider] - 1-2 days (02-19-19 at 6pm) Bret Hoover MD [STAFF PHYSICIAN] - 1 Week Activity/Diet/Wound Care/Special Instructions: Follow-up with PCP within 1-2 days of discharge. Follow-up with gastroenterology within 1 week of discharge. Please take all medications as advised. Discharge Disposition: HOME SELF-CARE
[2019-02-05 17:23] VITALS: BP 151/87; PULSE 82; RESP 16
[2019-02-06] MEDS ORDERED: PANTOPRAZOLE 40 MG TABLET PO SCH (09:00)
== END 2019-02-05 17:28 | disposition home or self-care (01) ==
LOC: EC 19:15 → 6PED 02-04 00:14
PROVIDERS: ADMIT Internal Medicine; ATTEND Internal Medicine
DX: R10.13 Epigastric pain (principal); E03.9 Hypothyroidism, unspecified; F31.9 Bipolar disorder, unspecified; K21.9 Gastro-esophageal reflux disease without esophagitis; K29.70 Gastritis, unspecified, without bleeding; K29.80 Duodenitis without bleeding; G89.29 Other chronic pain; F17.210 Nicotine dependence, cigarettes, uncomplicated; M54.5 Low back pain; K44.9 Diaphragmatic hernia without obstruction or gangrene; K58.2 Mixed irritable bowel syndrome; M79.7 Fibromyalgia; Z79.1 Long term (current) use of non-steroidal anti-inflammatories (NSAID); Z79.890 Hormone replacement therapy; Z79.899 Other long term (current) drug therapy; Z90.49 Acquired absence of other specified parts of digestive tract; Z80.8 Family history of malignant neoplasm of other organs or systems; Z83.3 Family history of diabetes mellitus; Z88.1 Allergy status to other antibiotic agents; Z88.8 Allergy status to other drugs, medicaments and biological substances; Z91.048 Other nonmedicinal substance allergy status
CPT/HCPCS: 96361 ×4; 96372 ×2; 96375 ×2; 96376 ×2; 96374; 99285; 36415; 93005; 88305; 80053; 80048; 82150; 83690 ×2; 84484; 85025 ×2; 81001; 81025; 71046; 74176; 43239; G0378 ×2; J2270 ×2; J1644 ×2; J2405 ×2; J2001; J2704; C9113 ×2; J1170 ×2

== ENCOUNTER → 2019-04-17 | Outpatient (CLI) | payer OTHER ==
--- NOTE | 2019-04-17 15:51 | US ---
EXAMINATION TYPE: US pelvis complete transvag DATE OF EXAM: 04/17/2019 COMPARISON: NONE CLINICAL HISTORY: N83.209 Cyst of ovary. TECHNIQUE: Transvaginal (TV) and Transabdominal (TA) . Transabdominal sonographic images of the pel vis were acquired. Transvaginal sonographic images were medically necessary to better assess the fol lowing anatomy: left ovary Date of LMP: 03/09/19 EXAM MEASUREMENTS: Uterus: 8.3 x 3.1 x 3.9 cm Endometrial Stripe: 0.5 cm Right Ovary: 2.3 x 1.0 x 1.3 cm Left Ovary: 6.8 x 5.1 x 5.6 cm 1. Uterus: hyperechoic focus MAGALY measuring 0.4 x 0.2 x 0.3cm, otherwise wnl 2. Endometrium: 0.5cm 3. Right Ovary: wnl 4. Left Ovary: 5.7 x 4.2 x 5.4cm cyst with internal echoes 5. Bilateral Adnexa: wnl 6. Posterior cul-de-sac: wnl IMPRESSION: 1. Complex left ovarian cyst with internal echoes. Follow-up is recommended in 6 weeks following the next normal menstrual period.
== END | disposition home or self-care (01) ==
LOC: RADUSWWP 14:50
PROVIDERS: ATTEND Internal Medicine
DX: N83.292 Other ovarian cyst, left side (principal)
CPT/HCPCS: 76830; 76856

== ENCOUNTER 2019-06-01 11:20 | Emergency (ER) | payer OTHER ==
[2019-06-01] MEDS ORDERED: SODIUM CHLORIDE 0.9% 1,000 ML IV STA (13:18)
[2019-06-01] MEDS ORDERED: MORPHINE SULFATE 4 MG/ML SYRINGE IV STA (13:18)
--- NOTE | 2019-06-01 13:29 | ED ---
Abdominal Pain HPI - General Chief Complaint: Abdominal Pain Stated Complaint: abdominal pain Time Seen by Provider: 06/01/19 13:17 Source: patient, RN notes reviewed, old records reviewed Mode of arrival: ambulatory Limitations: no limitations - History of Present Illness Initial Comments: This is a 44-year-old female the ER for evaluation. Patient does say for evaluation of severe abdominal pain suprapubic pain. Mild nausea no vomiting no change in bowel habits, denies any dysuria. No vaginal bleeding. No history of similar complaints. No recent surgical history. No recent travel history or sick contacts, no failure hours of similar complaint. Patient is also complaining of pain in her rectum area, but she did have bowel movement today and has had history of colonoscopy which was normal MD Complaint: abdominal pain (And rectal pain) -: hour(s) Location: diffuse, suprapubic Radiation: suprapubic Severity: moderate Severity scale (1-10): 6 Quality: aching, fullness Consistency: constant Improves With: nothing Worsens With: nothing Associated Symptoms: nausea, anorexia - Related Data Home Medications Medication Instructions Recorded Confirmed Gabapentin [Neurontin] 400 mg PO TID 05/03/17 06/01/19 Levothyroxine Sodium [Synthroid] 25 mcg PO DAILY 05/03/17 06/01/19 Cyclobenzaprine [Flexeril] 5 mg PO TID 01/21/18 06/01/19 lamoTRIgine [LaMICtal] 100 mg PO QAM 02/03/19 06/01/19 lamoTRIgine [LaMICtal] 200 mg PO HS 02/03/19 06/01/19 Dicyclomine [Bentyl] 10 mg PO QID PRN 06/01/19 06/01/19 LORazepam [Ativan] 1 mg PO BID PRN 06/01/19 06/01/19 QUEtiapine FUMARATE [SEROquel] 300 mg PO HS 06/01/19 06/01/19 buPROPion HCL [Wellbutrin XL] 300 mg PO DAILY 06/01/19 06/01/19 Previous Rx's Medication Instructions Recorded Pantoprazole [Protonix] 40 mg PO BID #60 tablet. 02/05/19 Allergies Allergy/AdvReac Type Severity Reaction Status Date / Time cefaclor [From [facility]] Allergy Anaphylaxis Verified 07/08/19 13:18 prednisone Allergy Rapid Verified 06/01/19 13:18 Heart Rate adhesive tape AdvReac Rash/Hives Verified 06/01/19 13:18 Review of Systems ROS Statement: Those systems with pertinent positive or pertinent negative responses have been documented in the HPI. ROS Other: All systems not noted in ROS Statement are negative. Past Medical History Past Medical History: Fibromyalgia, GERD/Reflux, Thyroid Disorder Additional Past Medical History / Comment(s): Fibromyalgia multiple joints, IBS, sphincterof Oddi dysfunction-caused elevated LFT, pt has had cholecystectomy, hypothyroid, chronic low back pain, pancreatitis. History of Any Multi-Drug Resistant Organisms: MRSA Date of last positivie culture/infection: 2009 MDRO Source:: GROIN Past Surgical History: Cholecystectomy Additional Past Surgical History / Comment(s): R BREAST U/S GUIDED BREAST BX THEN CYSTECTOMY, CERVICAL FUSION, SINUS X2, EGD/COLONOSCOPY Past Anesthesia/Blood Transfusion Reactions: Postoperative Nausea & Vomiting (PONV) Past Psychological History: Bipolar, Depression Smoking Status: Current every day smoker Past Alcohol Use History: None Reported Past Drug Use History: Marijuana - Past Family History Father Family Medical History: Cancer, Diabetes Mellitus Additional Family Medical History / Comment(s): SKIN CANCER Mother Family Medical History: Fibromyalgia Additional Family Medical History / Comment(s): Mother is bipolar. General Exam - General Exam Comments Initial Comments: Patient with suprapubic tenderness Limitations: no limitations General appearance: alert, in no apparent distress Head exam: Present: atraumatic, normocephalic, normal inspection Eye exam: Present: normal appearance, PERRL, EOMI. Absent: scleral icterus, conjunctival injection, periorbital swelling ENT exam: Present: normal exam, mucous membranes moist Neck exam: Present: normal inspection. Absent: tenderness, meningismus, lymphadenopathy Respiratory exam: Present: normal lung sounds bilaterally. Absent: respiratory distress, wheezes, rales, rhonchi, stridor Cardiovascular Exam: Present: regular rate, normal rhythm, normal heart sounds. Absent: systolic murmur, diastolic murmur, rubs, gallop, clicks GI/Abdominal exam: Present: soft, distended, tenderness (Suprapubic), normal bowel sounds. Absent: guarding, rebound, rigid Extremities exam: Present: normal inspection, full ROM, normal capillary refill. Absent: tenderness, pedal edema, joint swelling, calf tenderness Back exam: Present: normal inspection Neurological exam: Present: alert, oriented X3, CN II-XII intact Psychiatric exam: Present: normal affect, normal mood Skin exam: Present: warm, dry, intact, normal color. Absent: rash Course Vital Signs 06/01/19 11:51 Temperature 98.3 F Pulse Rate 109 H Respiratory 16 Rate Blood Pressure 134/87 O2 Sat by Pulse 99 Oximetry - Reevaluation(s) Reevaluation #1: 06/01/19 15:14 Medical records reviewed Reevaluation #2: 06/01/19 15:14 Pain is currently controlled Medical Decision Making - Medical Decision Making 44 female the ER for evaluation patient resents today for evaluation regarding abdominal pain, significant ovarian cyst. Will follow up with OB for further management - Lab Data Result diagrams: 06/01/19 13:30 06/01/19 13:30 Lab Results 06/01/19 06/01/19 06/01/19 Range/Units 13:30 13:30 13:30 WBC 19.8 H (3.8-10.6) k/uL RBC 4.89 (3.80-5.40) m/uL Hgb 14.1 (11.4-16.0) gm/dL Hct 42.5 (34.0-46.0) % MCV 87.0 (80.0-100.0) fL MCH 28.9 (25.0-35.0) pg MCHC 33.2 (31.0-37.0) g/dL RDW 13.1 (11.5-15.5) % Plt Count 263 (150-450) k/uL Neutrophils % 88 % Lymphocytes % 7 % Monocytes % 4 % Eosinophils % 0 % Basophils % 0 % Neutrophils # 17.5 H (1.3-7.7) k/uL Lymphocytes # 1.3 (1.0-4.8) k/uL Monocytes # 0.7 (0-1.0) k/uL Eosinophils # 0.1 (0-0.7) k/uL Basophils # 0.1 (0-0.2) k/uL Sodium 138 (137-145) mmol/L Potassium 3.7 (3.5-5.1) mmol/L Chloride 106 (98-107) mmol/L Carbon Dioxide 23 (22-30) mmol/L Anion Gap 9 mmol/L BUN 10 (7-17) mg/dL Creatinine 0.72 (0.52-1.04) mg/dL Est GFR (CKD-EPI)AfAm >90 (>60 ml/min/1.73 sqM) Est GFR (CKD-EPI)NonAf >90 (>60 ml/min/1.73 sqM) Glucose 96 (74-99) mg/dL Plasma Lactic Acid Jose 1.1 (0.7-2.0) mmol/L Calcium 9.2 (8.4-10.2) mg/dL Total Bilirubin 1.0 (0.2-1.3) mg/dL AST 16 (14-36) U/L ALT 16 (9-52) U/L Alkaline Phosphatase 78 (38-126) U/L Creatine Kinase 58 (30-135) U/L Total Protein 7.1 (6.3-8.2) g/dL Albumin 4.3 (3.5-5.0) g/dL Amylase 50 (30-110) U/L Lipase 30 (23-300) U/L Urine Color Urine Appearance (Clear) Urine pH (5.0-8.0) Ur Specific [place] (1.001-1.035) Urine Protein (Negative) Urine Glucose (UA) (Negative) Urine Ketones (Negative) Urine Blood (Negative) Urine Nitrite (Negative) Urine Bilirubin (Negative) Urine Urobilinogen (<2.0) mg/dL Ur Leukocyte Esterase (Negative) Urine WBC (0-5) /hpf Ur Squamous Epith Cells (0-4) /hpf Urine Bacteria (None) /hpf Urine Mucus (None) /hpf 06/01/19 Range/Units 13:30 WBC (3.8-10.6) k/uL RBC (3.80-5.40) m/uL Hgb (11.4-16.0) gm/dL Hct (34.0-46.0) % MCV (80.0-100.0) fL MCH (25.0-35.0) pg MCHC (31.0-37.0) g/dL RDW (11.5-15.5) % Plt Count (150-450) k/uL Neutrophils % % Lymphocytes % % Monocytes % % Eosinophils % % Basophils % % Neutrophils # (1.3-7.7) k/uL Lymphocytes # (1.0-4.8) k/uL Monocytes # (0-1.0) k/uL Eosinophils # (0-0.7) k/uL Basophils # (0-0.2) k/uL Sodium (137-145) mmol/L Potassium (3.5-5.1) mmol/L Chloride (98-107) mmol/L Carbon Dioxide (22-30) mmol/L Anion Gap mmol/L BUN (7-17) mg/dL Creatinine (0.52-1.04) mg/dL Est GFR (CKD-EPI)AfAm (>60 ml/min/1.73 sqM) Est GFR (CKD-EPI)NonAf (>60 ml/min/1.73 sqM) Glucose (74-99) mg/dL Plasma Lactic Acid Jose (0.7-2.0) mmol/L Calcium (8.4-10.2) mg/dL Total Bilirubin (0.2-1.3) mg/dL AST (14-36) U/L ALT (9-52) U/L Alkaline Phosphatase (38-126) U/L Creatine Kinase (30-135) U/L Total Protein (6.3-8.2) g/dL Albumin (3.5-5.0) g/dL Amylase (30-110) U/L Lipase (23-300) U/L Urine Color Yellow Urine Appearance Cloudy H (Clear) Urine pH 5.5 (5.0-8.0) Ur Specific [place] 1.019 (1.001-1.035) Urine Protein Trace H (Negative) Urine Glucose (UA) Negative (Negative) Urine Ketones 1+ H (Negative) Urine Blood Negative (Negative) Urine Nitrite Negative (Negative) Urine Bilirubin Negative (Negative) Urine Urobilinogen <2.0 (<2.0) mg/dL Ur Leukocyte Esterase Trace H (Negative) Urine WBC 3 (0-5) /hpf Ur Squamous Epith Cells 20 H (0-4) /hpf Urine Bacteria Rare H (None) /hpf Urine Mucus Many H (None) /hpf - Radiology Data Radiology results: report reviewed (CT head and pelvis positive for significant sized ovarian cyst), image reviewed Disposition Clinical Impression: Ovarian cyst Disposition: HOME SELF-CARE Condition: Good Instructions (If sedation given, give patient instructions): Ovarian Cyst (ED) Is patient prescribed a controlled substance at d/c from ED?: No Referrals: Gabriel Ponce MD [Primary Care Provider] - 1-2 days
[2019-06-01 14:08] LABS: Basophils # (A) 0.1 k/uL (0-0.2); Basophils % (A) 0 %; Eosinophils # (A) 0.1 k/uL (0-0.7); Eosinophils % (A) 0 %; HCT 42.5 % (34.0-46.0); HGB 14.1 gm/dL (11.4-16.0); Lymphocytes # (A) 1.3 k/uL (1.0-4.8); Lymphocytes % (A) 7 %; MCH 28.9 pg (25.0-35.0); MCHC 33.2 g/dL (31.0-37.0); Mean Platelet Volume 7.6; Monocytes # (A) 0.7 k/uL (0-1.0); Monocytes % (A) 4 %; Neutrophils # (A) 17.5 k/uL (1.3-7.7); Neutrophils % (A) 88 %; Platelet Count 263 k/uL (150-450); RBC 4.89 m/uL (3.80-5.40); RDW 13.1 % (11.5-15.5); WBC 19.8 k/uL (3.8-10.6)
[2019-06-01 14:28] LABS: Appearance,Urine Cloudy (Clear); Bacteria,Urine Rare /hpf; Bilirubin,Urine Negative (Negative); Blood,Urine Negative (Negative); Color,Urine Yellow; Glucose,Urine (UA) Negative (Negative); Ketones,Urine 1+ (Negative); Leukocyte Esterase,Urine Trace (Negative); Mucus,Urine Many /hpf; Nitrite,Urine Negative (Negative); PH, Urine 5.5 (5.0-8.0); Protein,Urine Trace (Negative); Specific Gravity,Urine 1.019 (1.001-1.035); Squamous Epithelial Cell,Urine 20 /hpf (0-4); Urobilinogen,Urine <2.0 mg/dL (<2.0); WBC,Urine 3 /hpf (0-5)
[2019-06-01 14:32] LABS: ALT 16 U/L (9-52); AST 16 U/L (14-36); African American GFR (CKD) >90 (>60 ml/min/1.73 sqM); Albumin 4.3 g/dL (3.5-5.0); Alkaline Phosphatase 78 U/L (38-126); Amylase 50 U/L (30-110); Anion Gap 9 mmol/L; Blood Urea Nitrogen 10 mg/dL (7-17); Calcium 9.2 mg/dL (8.4-10.2); Carbon Dioxide 23 mmol/L (22-30); Chloride 106 mmol/L (98-107); Creatine Kinase 58 U/L (30-135); Glucose 96 mg/dL (74-99); Lipase 30 U/L (23-300); Potassium 3.7 mmol/L (3.5-5.1); Sodium 138 mmol/L (137-145); Total Protein 7.1 g/dL (6.3-8.2)
--- NOTE | 2019-06-01 15:16 | CT ---
EXAMINATION TYPE: CT abdomen pelvis w con DATE OF EXAM: 06/01/2019 COMPARISON: 02/03/2019 INDICATION: Subumbilical pelvic pain. DLP: 753.8 mGycm, Automated exposure control for dose reduction was used. CONTRAST: 100 mL of Isovue 300. Study performed without Oral Contrast TECHNIQUE: Axial images were obtained from above the diaphragm to the pubic rami in the axial plane a t 5 mm thick sections. Reconstructed images are reviewed on the computer in the coronal plane. FINDINGS: Limited CT sections are obtained the lung bases. There is some limited compressive atelectasis bilat eral lung bases.. CT ABDOMEN: Liver: Normal Spleen: Normal Pancreas: Normal Adrenal glands: The adrenal glands are normal. Gallbladder: Surgically absent Kidneys: No masses are evident. No hydronephrosis is present. Small cortical renal cyst extends fro m the posterior mid left kidney and measures 0.8 cm. Aorta: Vascular calcification is within the aorta. Inferior vena cava: Normal. CT PELVIS: There are some scattered air-fluid levels within small bowel loops. A mild ileus may be present withi n the pelvis. No evidence of obstruction is evident. Colon has a normal appearance. There are loops o f bowel which are incompletely distended or lack oral contrast limiting their evaluation. Appendix: Not identified. No suspicious inflammatory changes or dilated tubular structures are eviden t. Urinary bladder: Normal. Genitourinary structures: There is a 4.1 cm left ovarian cyst. Follow-up with ultrasound is recommend ed. Uterus is unremarkable. Right adnexal region is normal. There is a small to moderate free fluid w ithin the pelvis which can be physiologic. Osseous structures: No suspicious lytic or sclerotic lesions. There are a few scattered small rounded sclerotic areas within the osseous structures appear more compatible with bone islands no present pr eviously. IMPRESSIONS: 1. 4.1 cm large left ovarian cyst. Follow-up with ultrasound is recommended. This appears increased from 02/03/[address] and was present on ultrasound of 04/17/2019.
[2019-06-01] MEDS ORDERED: ACET/COD 300 MG/30 MG STARTER PACK 6 TAB BTL PO STA (15:43)
[2019-06-01 16:18] VITALS: BP 115/62; PULSE 71; RESP 18; TEMP 98.2
== END 2019-06-01 16:10 | disposition home or self-care (01) ==
LOC: EC 11:20
DX: N83.202 Unspecified ovarian cyst, left side (principal); F31.9 Bipolar disorder, unspecified; E03.9 Hypothyroidism, unspecified; F17.200 Nicotine dependence, unspecified, uncomplicated; Z79.890 Hormone replacement therapy; Z79.899 Other long term (current) drug therapy; Z88.1 Allergy status to other antibiotic agents; Z88.8 Allergy status to other drugs, medicaments and biological substances; Z91.048 Other nonmedicinal substance allergy status; Z90.49 Acquired absence of other specified parts of digestive tract
CPT/HCPCS: 36415; 80053; 82150; 82550; 83605; 83690; 85025; 81001; 87086; 74177; 99284; 96374; 96361; J2270; Q9967

== ENCOUNTER 2019-06-02 18:25 | Emergency (ER) | payer OTHER ==
[2019-06-02 18:46] VITALS: RESP 18
[2019-06-02] MEDS ORDERED: PANTOPRAZOLE 40 MG/10 ML VIAL IVP STA (19:00)
[2019-06-02] MEDS ORDERED: SODIUM CHLORIDE 0.9% 1,000 ML IV STA (19:00)
--- NOTE | 2019-06-02 19:16 | ED ---
General Adult HPI - General Chief complaint: Abdominal Pain Stated complaint: Abd pain Time Seen by Provider: 06/02/19 18:51 Source: patient, RN notes reviewed, old records reviewed Mode of arrival: ambulatory Limitations: no limitations - History of Present Illness Initial comments: 44-year-old female patient who was seen yesterday for abdominal pain and a other systems ED with epigastric burning. Patient reports that she has taken 2-3, L3's with codeine and developed epigastric pain and epigastric burning after its. Patient also reports that she had some nausea with one episode of emesis. Patient denies any other areas of abdominal tenderness. Denies any other complaints, denies any chest pain shortness of breath. Systemic: Pt denies fatigue, fever/chills, rash. Pt denies weakness, night sweats, weight loss. Neuro: Pt denies headache, visual disturbances, syncope or pre-syncope. HEENT: Pt denies ocular discharge or irritation, otalgia, rhinorrhea, pharyngitis or notable lymphadenopathy. Cardiopulmonary: Pt denies chest pain, SOB, heart palpitations, dyspnea on exertion. : Pt denies dysuria, burning w/ urination, frequency/urgency. Denies new onset urinary or bowel incontinence. MSK: Pt denies myalgia, loss of strength or function in extremities. Neuro: Pt denies new onset weakness, paresthesias. - Related Data Home Medications Medication Instructions Recorded Confirmed Gabapentin [Neurontin] 400 mg PO TID 05/03/17 06/01/19 Levothyroxine Sodium [Synthroid] 25 mcg PO DAILY 05/03/17 06/01/19 Cyclobenzaprine [Flexeril] 5 mg PO TID 01/21/18 06/01/19 lamoTRIgine [LaMICtal] 100 mg PO QAM 02/03/19 06/01/19 lamoTRIgine [LaMICtal] 200 mg PO HS 02/03/19 06/01/19 Dicyclomine [Bentyl] 10 mg PO QID PRN 06/01/19 06/01/19 LORazepam [Ativan] 1 mg PO BID PRN 06/01/19 06/01/19 QUEtiapine FUMARATE [SEROquel] 300 mg PO HS 06/01/19 06/01/19 buPROPion HCL [Wellbutrin XL] 300 mg PO DAILY 06/01/19 06/01/19 Previous Rx's Medication Instructions Recorded Pantoprazole [Protonix] 40 mg PO BID #60 tablet. 02/05/19 Famotidine [Pepcid] 20 mg PO BID #20 tablet 06/02/19 Allergies Allergy/AdvReac Type Severity Reaction Status Date / Time cefaclor [From Ceclor] Allergy Anaphylaxis Verified 06/02/19 18:46 prednisone Allergy Rapid Verified 06/02/19 18:46 Heart Rate adhesive tape AdvReac Rash/Hives Verified 06/02/19 18:46 Review of Systems ROS Statement: Those systems with pertinent positive or pertinent negative responses have been documented in the HPI. ROS Other: All systems not noted in ROS Statement are negative. Past Medical History Past Medical History: Fibromyalgia, GERD/Reflux, Thyroid Disorder Additional Past Medical History / Comment(s): Fibromyalgia multiple joints, IBS, sphincterof Oddi dysfunction-caused elevated LFT, pt has had cholecystectomy, hypothyroid, chronic low back pain, pancreatitis. History of Any Multi-Drug Resistant Organisms: MRSA Date of last positivie culture/infection: 2009 MDRO Source:: GROIN Past Surgical History: Cholecystectomy Additional Past Surgical History / Comment(s): R BREAST U/S GUIDED BREAST BX THEN CYSTECTOMY, CERVICAL FUSION, SINUS X2, EGD/COLONOSCOPY Past Anesthesia/Blood Transfusion Reactions: Postoperative Nausea & Vomiting (PONV) Past Psychological History: Bipolar, Depression Smoking Status: Current every day smoker Past Alcohol Use History: None Reported Past Drug Use History: Marijuana - Past Family History Father Family Medical History: Cancer, Diabetes Mellitus Additional Family Medical History / Comment(s): SKIN CANCER Mother Family Medical History: Fibromyalgia Additional Family Medical History / Comment(s): Mother is bipolar. General Exam - General Exam Comments Initial Comments: Constitutional: NAD, AOX3, Pt has pleasant affect. HEENT: NC/AT, trachea midline, neck supple, no lymphadenopathy. Posterior pharynx non erythematous, without exudates. External ears appear normal, without discharge. Mucous membranes moist. Eyes PERRLA, EOM intact. There is no scleral icterus. No pallor noted. Cardiopulmonary: RRR, no murmurs, rubs or gallops, no JVD noted. Lungs CTAB in anterior and posterior thomas. No peripheral edema. Abdominal exam: Abdomen soft and non-distended. Epigastric region of abnorm alities palpation, no other areas of abdominal tenderness.. Bowel sounds active in LLQ. No hepatosplenomegaly. No ecchymosis Neuro: CN II-XII grossly intact. No nuchal rigidity. No raccon eyes, no wright sign, no hemotympanum. No cervical spinal tenderness. MSK: No posterior calf tenderness bilaterally, homans sign negative bilaterally. Posterior tibialis and radial pulse +2 bilaterally. Sensation intact in upper and lower extremities. Full active ROM in upper and lower extremities, 5/5 stregnth. Limitations: no limitations Course Vital Signs 06/02/19 18:43 Temperature 97.8 F Pulse Rate 95 Respiratory 18 Rate Blood Pressure 118/67 O2 Sat by Pulse 100 Oximetry Medical Decision Making - Medical Decision Making 44-year-old female patient who was seen yesterday for abdominal pain and a other systems ED with epigastric burning. Patient reports that she has taken 2-3, L3's with codeine and developed epigastric pain and epigastric burning after its. Patient also reports that she had some nausea with one episode of emesis. Patient denies any other areas of abdominal tenderness. Denies any other complaints, denies any chest pain shortness of breath. Patient vital signs stable, afebrile. Physical exam displayed epigastric abdominal pain. No other areas of abdominal tenderness. A prescription filled improving leukocytosis. Patient does have a mild patient had transaminases. Patient does not have a gallbladder. Lipase within normal limits, urine displayed +3 ketones, +2 bilirubin. Patient is tolerating orally at this time. K displayed no acute process. Chair decision making was done conducted, patient is comfortable with plan of discharge and follow-up with primary care and GI consult. Patient will return here patient worsens in any way. Patient will have liver enzyme tests repeated by primary care provider. Case discussed in depth with Dr. Haddad. - Lab Data Result diagrams: 06/02/19 19:37 06/02/19 19:37 Lab Results 06/02/19 06/02/19 06/02/19 Range/Units 19:37 19:37 19:37 WBC 15.6 H (3.8-10.6) k/uL RBC 4.69 (3.80-5.40) m/uL Hgb 13.7 (11.4-16.0) gm/dL Hct 40.8 (34.0-46.0) % MCV 86.9 (80.0-100.0) fL MCH 29.3 (25.0-35.0) pg MCHC 33.7 (31.0-37.0) g/dL RDW 13.0 (11.5-15.5) % Plt Count 270 (150-450) k/uL Neutrophils % 86 % Lymphocytes % 8 % Monocytes % 5 % Eosinophils % 0 % Basophils % 0 % Neutrophils # 13.4 H (1.3-7.7) k/uL Lymphocytes # 1.2 (1.0-4.8) k/uL Monocytes # 0.7 (0-1.0) k/uL Eosinophils # 0.1 (0-0.7) k/uL Basophils # 0.0 (0-0.2) k/uL Sodium 139 (137-145) mmol/L Potassium 3.5 (3.5-5.1) mmol/L Chloride 104 (98-107) mmol/L Carbon Dioxide 22 (22-30) mmol/L Anion Gap 13 mmol/L BUN 9 (7-17) mg/dL Creatinine 0.66 (0.52-1.04) mg/dL Est GFR (CKD-EPI)AfAm >90 (>60 ml/min/1.73 sqM) Est GFR (CKD-EPI)NonAf >90 (>60 ml/min/1.73 sqM) Glucose 102 H (74-99) mg/dL Plasma Lactic Acid Jose (0.7-2.0) mmol/L Calcium 9.2 (8.4-10.2) mg/dL Total Bilirubin 1.8 H (0.2-1.3) mg/dL AST 139 H (14-36) U/L ALT 174 H (9-52) U/L Alkaline Phosphatase 153 H (38-126) U/L Total Protein 7.0 (6.3-8.2) g/dL Albumin 4.2 (3.5-5.0) g/dL Lipase 25 (23-300) U/L Urine Color Urine Appearance (Clear) Urine pH (5.0-8.0) Ur Specific [place] (1.001-1.035) Urine Protein (Negative) Urine Glucose (UA) (Negative) Urine Ketones (Negative) Urine Blood (Negative) Urine Nitrite (Negative) Urine Bilirubin (Negative) Urine Urobilinogen (<2.0) mg/dL Ur Leukocyte Esterase (Negative) Urine RBC (0-5) /hpf Urine WBC (0-5) /hpf Ur Squamous Epith Cells (0-4) /hpf Urine Bacteria (None) /hpf Urine Mucus (None) /hpf Urine HCG, Qual Not Detected (Not Detectd) 06/02/19 06/02/19 Range/Units 19:37 19:37 WBC (3.8-10.6) k/uL RBC (3.80-5.40) m/uL Hgb (11.4-16.0) gm/dL Hct (34.0-46.0) % MCV (80.0-100.0) fL MCH (25.0-35.0) pg MCHC (31.0-37.0) g/dL RDW (11.5-15.5) % Plt Count (150-450) k/uL Neutrophils % % Lymphocytes % % Monocytes % % Eosinophils % % Basophils % % Neutrophils # (1.3-7.7) k/uL Lymphocytes # (1.0-4.8) k/uL Monocytes # (0-1.0) k/uL Eosinophils # (0-0.7) k/uL Basophils # (0-0.2) k/uL Sodium (137-145) mmol/L Potassium (3.5-5.1) mmol/L Chloride (98-107) mmol/L Carbon Dioxide (22-30) mmol/L Anion Gap mmol/L BUN (7-17) mg/dL Creatinine (0.52-1.04) mg/dL Est GFR (CKD-EPI)AfAm (>60 ml/min/1.73 sqM) Est GFR (CKD-EPI)NonAf (>60 ml/min/1.73 sqM) Glucose (74-99) mg/dL Plasma Lactic Acid Jose 1.3 (0.7-2.0) mmol/L Calcium (8.4-10.2) mg/dL Total Bilirubin (0.2-1.3) mg/dL AST (14-36) U/L ALT (9-52) U/L Alkaline Phosphatase (38-126) U/L Total Protein (6.3-8.2) g/dL Albumin (3.5-5.0) g/dL Lipase (23-300) U/L Urine Color Yellow Urine Appearance Clear (Clear) Urine pH 6.0 (5.0-8.0) Ur Specific [place] 1.010 (1.001-1.035) Urine Protein 1+ (Negative) Urine Glucose (UA) Negative (Negative) Urine Ketones 3+ (Negative) Urine Blood Negative (Negative) Urine Nitrite Negative (Negative) Urine Bilirubin 2+ H (Negative) Urine Urobilinogen 8.0 (<2.0) mg/dL Ur Leukocyte Esterase Small (Negative) Urine RBC 1 (0-5) /hpf Urine WBC 2 (0-5) /hpf Ur Squamous Epith Cells 6 H (0-4) /hpf Urine Bacteria Few H (None) /hpf Urine Mucus Few H (None) /hpf Urine HCG, Qual (Not Detectd) Disposition Clinical Impression: Gastritis, Abdominal pain Disposition: HOME SELF-CARE Condition: Stable Instructions (If sedation given, give patient instructions): Gastritis (ED) Additional Instructions: Patient to adhere to previously discussed treatment plan and will take medication(s) as directed. Patient to follow up with PCP in 1-2 days. Patient to return to ED if symptoms do not improve. Follow-up with primary care provider and GI consult tomorrow. Return to ER if condition worsens in any way. Take medication as prescribed. Prescriptions: Famotidine [Pepcid] 20 mg PO BID #20 tablet Is patient prescribed a controlled substance at d/c from ED?: No Referrals: Gabriel Ponce MD [Primary Care Provider] - 1-2 days Bret Hoover MD [STAFF PHYSICIAN] - 1-2 days
[2019-06-02 19:54] LABS: Basophils % (A) 0 %; Eosinophils # (A) 0.1 k/uL (0-0.7); Eosinophils % (A) 0 %; HCT 40.8 % (34.0-46.0); HGB 13.7 gm/dL (11.4-16.0); Lymphocytes # (A) 1.2 k/uL (1.0-4.8); Lymphocytes % (A) 8 %; MCH 29.3 pg (25.0-35.0); MCHC 33.7 g/dL (31.0-37.0); MCV 86.9 fL (80.0-100.0); Mean Platelet Volume 7.9; Monocytes # (A) 0.7 k/uL (0-1.0); Monocytes % (A) 5 %; Neutrophils # (A) 13.4 k/uL (1.3-7.7); Neutrophils % (A) 86 %; Platelet Count 270 k/uL (150-450); RBC 4.69 m/uL (3.80-5.40); WBC 15.6 k/uL (3.8-10.6)
[2019-06-02 20:00] LABS: Bacteria,Urine Few /hpf; Mucus,Urine Few /hpf; RBC,Urine 1 /hpf (0-5); Squamous Epithelial Cell,Urine 6 /hpf (0-4); WBC,Urine 2 /hpf (0-5)
[2019-06-02 20:11] LABS: ALT 174 U/L (9-52); AST 139 U/L (14-36); African American GFR (CKD) >90 (>60 ml/min/1.73 sqM); Albumin 4.2 g/dL (3.5-5.0); Alkaline Phosphatase 153 U/L (38-126); Anion Gap 13 mmol/L; Blood Urea Nitrogen 9 mg/dL (7-17); Calcium 9.2 mg/dL (8.4-10.2); Carbon Dioxide 22 mmol/L (22-30); Chloride 104 mmol/L (98-107); Glucose 102 mg/dL (74-99); Lipase 25 U/L (23-300); Potassium 3.5 mmol/L (3.5-5.1); Sodium 139 mmol/L (137-145); Total Bilirubin 1.8 mg/dL (0.2-1.3)
[2019-06-02 20:16] LABS: Appearance,Urine Clear (Clear); Color,Urine Yellow
[2019-06-02 20:17] LABS: Bilirubin,Urine 2+ (Negative); Blood,Urine Negative (Negative); Glucose,Urine (UA) Negative (Negative); Ketones,Urine 3+ (Negative); Nitrite,Urine Negative (Negative); Protein,Urine 1+ (Negative)
[2019-06-02 20:18] LABS: Leukocyte Esterase,Urine Small (Negative)
--- NOTE | 2019-06-02 20:19 | XR ---
EXAMINATION TYPE: XR KUB - 2 VIEWS DATE OF EXAM: 06/02/2019 COMPARISON: 01/14/2019 HISTORY: Pain nausea vomiting TECHNIQUE: 2 upright views FINDINGS: Visualized lung bases and pleural spaces are negative. No pneumoperitoneum or pneumatosis. Bowel gas pattern is normal. No acute skeletal or soft tissue findings are evident. IMPRESSION: Negative examination.
[2019-06-02 21:34] VITALS: BP 133/76; PULSE 76; TEMP 98
== END 2019-06-02 21:35 | disposition home or self-care (01) ==
LOC: EC 18:25
DX: K29.70 Gastritis, unspecified, without bleeding (principal); K58.9 Irritable bowel syndrome, unspecified; M79.7 Fibromyalgia; E03.9 Hypothyroidism, unspecified; F31.9 Bipolar disorder, unspecified; Z86.14 Personal history of Methicillin resistant Staphylococcus aureus infection; Z87.19 Personal history of other diseases of the digestive system; Z90.49 Acquired absence of other specified parts of digestive tract; Z98.1 Arthrodesis status; Z98.890 Other specified postprocedural states; Z79.890 Hormone replacement therapy; Z79.899 Other long term (current) drug therapy; Z88.1 Allergy status to other antibiotic agents; Z88.8 Allergy status to other drugs, medicaments and biological substances; Z91.048 Other nonmedicinal substance allergy status
CPT/HCPCS: 36415; 80053; 83605; 83690; 85025; 81001; 81025; 74018; 99284; 96374; 96361 ×2; C9113

== ENCOUNTER → 2019-06-30 | Outpatient (CLI) | payer OTHER ==
--- NOTE | 2019-07-01 09:13 | US ---
EXAMINATION TYPE: US kidneys/renal and bladder DATE OF EXAM: 06/30/2019 COMPARISON: CT dated 06/01/2019 CLINICAL HISTORY: N28.1 CYST OF KIDNEY. Hx of renal cysts. EXAM MEASUREMENTS: Right Kidney: 10.2 x 5.1 x 4.7 cm Left Kidney: 10.9 x 4.8 x 4.4 cm Right Kidney: No hydronephrosis or masses seen Left Kidney: No hydronephrosis or masses seen Bladder: wnl Bilateral Jets seen: Yes There is no evidence for hydronephrosis at this point in time. No nephrolithiasis is seen. No kenzie s are identified. The urinary bladder is anechoic. Bilateral ureteral jets are seen. The previously seen posterior mid left kidney probable cortical renal cyst Is not seen in today's exam. IMPRESSION: The subcentimeter left cortical renal cyst seen on the CT of 06/01/2019 is not seen on today's exam, be tter seen with CT.
== END | disposition home or self-care (01) ==
LOC: RADUSWWP 16:14
PROVIDERS: ATTEND Internal Medicine
DX: N28.1 Cyst of kidney, acquired (principal)
CPT/HCPCS: 76770

== ENCOUNTER → 2019-07-02 | Outpatient (CLI) | payer OTHER ==
--- NOTE | 2019-07-06 09:53 | MM ---
Reason for exam: screening (asymptomatic). Last mammogram was performed 17 years and 11 months ago. History: Patient had first child after 32. Benign MG pre op needle loc RT of the right breast, May 07, 2017. Took hormonal contraceptives for 17 years. Physical Findings: A clinical breast exam by your physician is recommended on an annual basis and results should be correlated with mammographic findings. MG Screening Mammo w CAD Bilateral CC and MLO view(s) were taken. Prior study comparison: April 23, 2017, mammogram. The breast tissue is heterogeneously dense. This may lower the sensitivity of mammography. Benign appearing calcifications in the right breast and right post biopsy change. No suspicious abnormality. No significant changes when compared with prior studies. ASSESSMENT: Benign, BI-RAD 2 RECOMMENDATION: Routine screening mammogram of both breasts in 1 year.
== END | disposition home or self-care (01) ==
LOC: RADMAMWWP 13:12
PROVIDERS: ATTEND Internal Medicine
DX: Z12.31 Encounter for screening mammogram for malignant neoplasm of breast (principal)
CPT/HCPCS: 77067

== ENCOUNTER 2019-07-07 06:26 | Day surgery (SDC) | payer OTHER ==
[2019-07-01 11:54] VITALS: BMI 25.8
--- NOTE | 2019-07-06 14:18 | P.HPOB ---
History of Present Illness H&P Date: 07/06/19 Chief Complaint: left ovarian cyst 44 year old G0 presents for laparoscopic aspiration of left ovarian cyst. Review of Systems All systems: negative Constitutional: Denies chills, Denies fever Eyes: denies blurred vision, denies pain Ears, nose, mouth and throat: Denies headache, Denies sore throat Cardiovascular: Denies chest pain, Denies shortness of breath Respiratory: Denies cough Gastrointestinal: Denies abdominal pain, Denies diarrhea, Denies nausea, Denies vomiting Genitourinary: Denies dysuria, Denies hematuria Musculoskeletal: Denies myalgias Integumentary: Denies pruritus, Denies rash Neurological: Denies numbness, Denies weakness Psychiatric: Denies anxiety, Denies depression Endocrine: Denies fatigue, Denies weight change Past Medical History Past Medical History: Fibromyalgia, GERD/Reflux, Thyroid Disorder Additional Past Medical History / Comment(s): IBS, Sphincter of Oddi Dysfunction-caused elevated LFT, hypothyroid, chronic low back pain, pancreatitis. History of Any Multi-Drug Resistant Organisms: MRSA Date of last positivie culture/infection: 2009 MDRO Source:: GROIN Past Surgical History: Cholecystectomy, Orthopedic Surgery Additional Past Surgical History / Comment(s): RIGHT BREAST BIOPSY, THEN CYSTECTOMY, CERVICAL FUSION, SINUS SURGERY X2, EGD/COLONOSCOPY. Past Anesthesia/Blood Transfusion Reactions: Postoperative Nausea & Vomiting (PONV) Past Psychological History: Bipolar, Depression Smoking Status: Current every day smoker Past Alcohol Use History: None Reported Additional Past Alcohol Use History / Comment(s): SMOKES 1PDD ON AND OFF FROM AGE 18. Past Drug Use History: Marijuana Additional Drug Use History / Comment(s): MEDICAL MARIJUANA USE everyday. Aware no use 24 hrs prior to procedure. - Past Family History Father Family Medical History: Cancer, Diabetes Mellitus Additional Family Medical History / Comment(s): SKIN CANCER. Mother Family Medical History: Fibromyalgia Additional Family Medical History / Comment(s): Mother is bipolar. Medications and Allergies Home Medications Medication Instructions Recorded Confirmed Type Gabapentin [Neurontin] 400 mg PO TID 05/03/17 06/01/19 History Levothyroxine Sodium [Synthroid] 25 mcg PO DAILY 05/03/17 06/01/19 History Cyclobenzaprine [Flexeril] 5 mg PO TID 01/21/18 06/01/19 History lamoTRIgine [LaMICtal] 100 mg PO QAM 02/03/19 06/01/19 History lamoTRIgine [LaMICtal] 200 mg PO HS 02/03/19 06/01/19 History Pantoprazole [Protonix] 40 mg PO BID #60 tablet. 02/05/19 06/01/19 Rx Dicyclomine [Bentyl] 10 mg PO QID PRN 06/01/19 06/01/19 History LORazepam [Ativan] 1 mg PO BID PRN 06/01/19 06/01/19 History QUEtiapine FUMARATE [SEROquel] 300 mg PO HS 06/01/19 06/01/19 History buPROPion HCL [Wellbutrin XL] 300 mg PO DAILY 06/01/19 06/01/19 History Famotidine [Pepcid] 20 mg PO BID #20 tablet 06/02/19 Rx Allergies Allergy/AdvReac Type Severity Reaction Status Date / Time [facility] Allergy Anaphylaxis Verified 07/01/19 11:35 prednisone Allergy Rapid Verified 07/01/19 11:35 Heart Rate adhesive tape AdvReac Rash/Hives Verified 07/01/19 11:35 Exam Osteopathic Statement: *. No significant issues noted on an osteopathic structural exam other than those noted in the History and Physical/Consult. HEart: RRR Lungs: CTAB Abdomen: soft, nontender Extremeties: neg fannie's Assessment and Plan (1) Left ovarian cyst Status: Acute Code(s): N83.202 - UNSPECIFIED OVARIAN CYST, LEFT SIDE SNOMED Code(s): 19693281 Plan: 1. laparoscopic aspiration of left ovarian cyst
[~2019-07-07 06:26] MED LIST changes: -DEXAMETHASONE SOD PHOSPHATE 10 MG/ML 1 ML VIAL IV ONE; -FAMOTIDINE 20 MG/2 ML VIAL IV PRN; -HEPARIN SODIUM,PORCINE 5,000 UNIT/ML 1 ML VIAL SQ ONE; +HYDROmorphone 0.5 MG/0.5 ML SYRINGE IVP PRN; -HYDROmorphone 1 MG/ML 1 ML SYRINGE IVP PRN; -LIDOCAINE 1% 20 ML VIAL (10MG/ML) FOR IV START INTRADERMA PRN; +MIDAZOLAM 2 MG/2 ML VIAL IV PRN; +ONDANSETRON 4 MG/2 ML VIAL IVP ONE
[2019-07-07] MEDS ORDERED: SCOPOLAMINE 1.5MG/72HR PATCH TRANSDERM ONE (07:06)
[2019-07-07] MEDS ORDERED: KETOROLAC 30 MG/ML 1 ML VIAL ONE (07:24)
[2019-07-07] MEDS ORDERED: GLYCOPYRROLATE 0.2 MG/ML 2 ML VIAL ONE (07:24)
[2019-07-07] MEDS ORDERED: PROPOFOL 10 MG/ML 20 ML VIAL IV ONE (07:24)
[2019-07-07] MEDS ORDERED: LIDOCAINE 1% INJ 10MG/ML (20 ML MDV) ONE (07:24)
[2019-07-07] MEDS ORDERED: NEOSTIGMINE 1 MG/ML 10 ML VIAL ONE (07:24)
[2019-07-07] MEDS ORDERED: MIDAZOLAM 2 MG/2 ML VIAL ONE (07:24)
[2019-07-07] MEDS ORDERED: diphenhydrAMINE 50 MG/ML 1 ML VIAL ONE (07:24)
[2019-07-07] MEDS ORDERED: ROCURONIUM BROMIDE 10 MG/ML 10 ML VIAL IV ONE (07:24)
[2019-07-07] MEDS ORDERED: fentaNYL (PF) 50 MCG/ML 2 ML AMP ONE (07:24)
[2019-07-07] MEDS ORDERED: HYDROmorphone (PF) 1 MG/ML ONE (07:24)
--- NOTE | 2019-07-07 07:33 | P.OP ---
Date of Procedure: 07/07/19 Preoperative Diagnosis: 1. left ovarian cyst 2. pelvic pain Postoperative Diagnosis: 1. left endometrioma 2. adhesions 3. endometriosis 4. pelvic pain Anesthesia: ANAA Surgeon: Latonya Alvarez Estimated Blood Loss (ml): 5 IV fluids (ml): 200 Urine output (ml): 20 Pathology: none sent Condition: stable Disposition: PACU Operative Findings: filmy adhesions in the posterior cul de sac and around both ovaries. large endometrioma on left ovary. endometriosis on bladder flap and in posterior cul de sac. Description of Procedure: Patient was taken to the operating room where general anesthesia was obtained without difficulty. She was prepped and draped in normal sterile fashion in the dorsal lithotomy position, legs placed in the Alex stirrups. Bladder drained of all urine. [place] speculum placed in the vagina and the anterior lip the cervix was grasped with single-tooth tenaculum. The uterus is sounded to 7 cm and the kroner manipulator was placed. Attention was then turned to the abdomen and gloves were changed. A 10 mm infraumbilical incision was made the scalpel and 10 mm optical trocar was placed under direct visualization. A 5 mm suprapubic Incision was made and a 5 mm optical trocar was placed under direct visualization. Survey of the pelvis revealed a large endometrioma on the left ovary, endometriosis on the bladder flap and in the posterior cul-de-sac, bowel adhesions to left pelvic sidewall, filmy adhesions surrounding both ovaries. I took down some of the adhesions in a blunt manner with the probe. The left endometrioma was cauterized to create a and opening, and the suction policy adviser was introduced to remove the brown fluid. I then cauterized some of the endometriosis on the bladder flap and in the posterior cul-de-sac. The umbilical incision was closed with 0 Vicryl and the fascial layer and then 4-0 Vicryl subcuticular fashion. The 5 mm incision was closed with 4-0 Vicryl in a subcuticular fashion. Patient tolerated procedure well, sponge and instrument counts correct 2 and she was taken to recovery room in stable condition.
[2019-07-07] MEDS ORDERED: BUPIVACAINE (PF) 0.25% 30 ML VIAL SQ ONE ×2 (07:50→08:10)
[2019-07-07 08:37] VITALS: TEMP 97.2
[2019-07-07 10:25] VITALS: BP 126/79; PULSE 77; RESP 18
== END 2019-07-07 10:50 | disposition home or self-care (01) ==
LOC: OR 06:26
PROVIDERS: ATTEND Obstetrics & Gynecology
DX: N83.202 Unspecified ovarian cyst, left side (principal); N80.3 Endometriosis of pelvic peritoneum; N80.1 Endometriosis of ovary; M79.7 Fibromyalgia; K21.9 Gastro-esophageal reflux disease without esophagitis; E03.9 Hypothyroidism, unspecified; Z90.49 Acquired absence of other specified parts of digestive tract; Z98.1 Arthrodesis status; F31.9 Bipolar disorder, unspecified; Z79.890 Hormone replacement therapy; Z79.899 Other long term (current) drug therapy; K58.9 Irritable bowel syndrome, unspecified; F17.200 Nicotine dependence, unspecified, uncomplicated; Z80.9 Family history of malignant neoplasm, unspecified; Z83.3 Family history of diabetes mellitus; Z88.1 Allergy status to other antibiotic agents; Z88.8 Allergy status to other drugs, medicaments and biological substances
CPT/HCPCS: 81025; 49322; J2250; J1200; J2710; J2405; J2001; J3010; J1885; J1170; J2704

== ENCOUNTER 2019-10-30 08:52 | Emergency (ER) | payer OTHER ==
[2019-10-30 08:57] VITALS: TEMP 97.5
[2019-10-30] MEDS ORDERED: ONDANSETRON 4 MG/2 ML VIAL IVP STA (09:16)
[2019-10-30] MEDS ORDERED: SODIUM CHLORIDE 0.9% 500 ML 500 ML IV ONE (09:16)
[2019-10-30] MEDS ORDERED: MORPHINE SULFATE 4 MG/ML SYRINGE IVP PRN (09:16)
[2019-10-30] MEDS ORDERED: SODIUM CHLORIDE 0.9% 1,000 ML IV ONE (09:16)
--- NOTE | 2019-10-30 09:17 | ED ---
Nausea/Vomiting/Diarrhea HPI - General Chief complaint: Nausea/Vomiting/Diarrhea Stated complaint: Abdominal pain Time Seen by Provider: 10/30/19 09:03 Source: patient Mode of arrival: ambulatory Limitations: no limitations - History of Present Illness Initial comments: 44-year-old female presenting today for chief complaint of nausea vomiting loose stools. Patient states that she has had nausea vomiting loose stools for the past day, patient states that she began to feel "unwell" Saturday and then night began dry heaving and puking throughout the night. Patient states she does have history of pancreatitis and states that she does have some discomfort in the upper middle abdomen denies any radiation to the back. Patient states is dull aching she denies history of ETOH abuse, high cholesterol she has had previous cholecystectomy. Patient denies any fevers she states she has had diarrhea that is bile like. Patient states that she is not . Denies URI or urinary symptoms such as urgency frequency. Patient has no other complaints. Upon arrival patient is dry heaving. - Related Data Home Medications Medication Instructions Recorded Confirmed Gabapentin [Neurontin] 400 mg PO TID 05/03/17 07/07/19 Levothyroxine Sodium [Synthroid] 25 mcg PO DAILY 05/03/17 07/07/19 Cyclobenzaprine [Flexeril] 5 mg PO TID 01/21/18 07/07/19 lamoTRIgine [LaMICtal] 100 mg PO QAM 02/03/19 07/07/19 lamoTRIgine [LaMICtal] 200 mg PO HS 02/03/19 07/07/19 Dicyclomine [Bentyl] 10 mg PO QID PRN 06/01/19 07/07/19 LORazepam [Ativan] 1 mg PO BID PRN 06/01/19 07/07/19 QUEtiapine FUMARATE [SEROquel] 300 mg PO HS 06/01/19 07/07/19 buPROPion HCL [Wellbutrin XL] 300 mg PO DAILY 06/01/19 07/07/19 Previous Rx's Medication Instructions Recorded Pantoprazole [Protonix] 40 mg PO BID #60 tablet. 02/05/19 Famotidine [Pepcid] 20 mg PO BID #20 tablet 06/02/19 HYDROcodone/APAP 5-325MG [[place] 1 - 2 tab PO Q6HR PRN #20 tab 07/07/19 5-325] Ibuprofen [Motrin] 600 mg PO Q6HR PRN #30 tab 07/07/19 Metoclopramide HCl [Reglan] 10 mg PO Q8H PRN 3 Days #9 tablet 10/30/19 Allergies Allergy/AdvReac Type Severity Reaction Status Date / Time cefaclor [From Ceclor] Allergy Anaphylaxis Verified 07/07/19 06:43 prednisone Allergy Rapid Verified 07/07/19 06:43 Heart Rate adhesive tape AdvReac Rash/Hives Verified 07/07/19 06:43 Review of Systems ROS Statement: Those systems with pertinent positive or pertinent negative responses have been documented in the HPI. ROS Other: All systems not noted in ROS Statement are negative. Past Medical History Past Medical History: Fibromyalgia, GERD/Reflux, Thyroid Disorder Additional Past Medical History / Comment(s): Fibromyalgia multiple joints, IBS, sphincterof Oddi dysfunction-caused elevated LFT, pt has had cholecystectomy, hypothyroid, chronic low back pain, pancreatitis. History of Any Multi-Drug Resistant Organisms: MRSA Date of last positivie culture/infection: 2009 MDRO Source:: GROIN Past Surgical History: Cholecystectomy Additional Past Surgical History / Comment(s): R BREAST U/S GUIDED BREAST BX T HEN CYSTECTOMY, CERVICAL FUSION, SINUS X2, EGD/COLONOSCOPY, ovarian cyst removal Past Anesthesia/Blood Transfusion Reactions: Postoperative Nausea & Vomiting (PONV) Past Psychological History: Bipolar, Depression Smoking Status: Current every day smoker Past Alcohol Use History: None Reported Past Drug Use History: Marijuana - Past Family History Father Family Medical History: Cancer, Diabetes Mellitus Additional Family Medical History / Comment(s): SKIN CANCER. Mother Family Medical History: Fibromyalgia Additional Family Medical History / Comment(s): Mother is bipolar. General Exam - General Exam Comments Initial Comments: General: The patient is awake and alert, actively vomiting. Eye: +3 mm pupils are equal, round and reactive to light, extra-ocular movements are intact. No nystagmus. There is normal conjunctiva bilaterally. No signs of icterus. Ears, nose, mouth and throat: There are moist mucous membranes and no oral lesions. Neck: The neck is supple, there is no tenderness or JVD. Cardiovascular: There is a regular rate and rhythm. No murmur, rub or gallop is appreciated. Respiratory: Lungs are clear to auscultation, respirations are non-labored, breath sounds are equal. No wheezes, stridor, rales, or rhonchi. Gastrointestinal: Soft, non-distended, tender to palpation of the LUQ of the abdomen, the remaining abdomen in nontender without masses or organomegaly noted. There is no rebound or guarding present. No CVA tenderness. Bowel sounds are unremarkable.] Musculoskeletal: Normal ROM, no tenderness. Strength 5/5. Sensation intact. Pulses equal bilaterally 2+. Neurological: A&O x 3. CN II-XII intact grossly, There are no obvious motor or sensory deficits. Coordination appears grossly intact. Speech is normal. Skin: Skin is warm and dry and no rashes or lesions are noted. Psychiatric: Cooperative, appropriate mood & affect, normal judgment. Limitations: no limitations Course Vital Signs 10/30/19 10/30/19 10/30/19 08:55 10:26 12:22 Temperature 97.5 F L Pulse Rate 85 80 89 Respiratory 19 18 17 Rate Blood Pressure 151/81 155/79 152/81 O2 Sat by Pulse 100 100 99 Oximetry Medical Decision Making - Medical Decision Making 44-year-old female with history of pancreatitis presenting for vomiting left upper quadrant abdominal pain. Lipase within normal limits. Patient has leukocytosis which may be reactive secondary to emesis. Patient's CT revealed no acute process however incidental findings of ovarian cysts and kidney mass which were discussed patient states she is aware of both. Patient was provided CT report to follow-up with primary care provider. Laboratory studies otherwise are unremarkable and stable patient vital signs stable symptoms controlled emergency Department patient be discharged with Reglan which seemed to help patient's nausea/emesis the most. Patient is agreeable iw all return parameters and importance of f/u. Discharged appearing well after discussin case with Erin vieyra. - Lab Data Result diagrams: 10/30/19 09:23 10/30/19 09:23 Lab Results 10/30/19 10/30/19 10/30/19 Range/Units 09:23 09:23 09:23 WBC 17.3 H (3.8-10.6) k/uL RBC 5.11 (3.80-5.40) m/uL Hgb 15.0 (11.4-16.0) gm/dL Hct 43.8 (34.0-46.0) % MCV 85.6 (80.0-100.0) fL MCH 29.4 (25.0-35.0) pg MCHC 34.4 (31.0-37.0) g/dL RDW 13.0 (11.5-15.5) % Plt Count 296 (150-450) k/uL Neutrophils % 87 % Lymphocytes % 8 % Monocytes % 3 % Eosinophils % 1 % Basophils % 0 % Neutrophils # 15.2 H (1.3-7.7) k/uL Lymphocytes # 1.5 (1.0-4.8) k/uL Monocytes # 0.4 (0-1.0) k/uL Eosinophils # 0.2 (0-0.7) k/uL Basophils # 0.0 (0-0.2) k/uL Sodium 140 (137-145) mmol/L Potassium 3.7 (3.5-5.1) mmol/L Chloride 109 H (98-107) mmol/L Carbon Dioxide 19 L (22-30) mmol/L Anion Gap 12 mmol/L BUN 13 (7-17) mg/dL Creatinine 0.75 (0.52-1.04) mg/dL Est GFR (CKD-EPI)AfAm >90 (>60 ml/min/1.73 sqM) Est GFR (CKD-EPI)NonAf >90 (>60 ml/min/1.73 sqM) Glucose 106 H (74-99) mg/dL Calcium 9.5 (8.4-10.2) mg/dL Total Bilirubin 1.0 (0.2-1.3) mg/dL AST 30 (14-36) U/L ALT 10 (9-52) U/L Alkaline Phosphatase 79 (38-126) U/L Total Protein 8.3 H (6.3-8.2) g/dL Albumin 4.7 (3.5-5.0) g/dL Lipase 29 (23-300) U/L Urine Color Urine Appearance (Clear) Urine pH (5.0-8.0) Ur Specific [place] (1.001-1.035) Urine Protein (Negative) Urine Glucose (UA) (Negative) Urine Ketones (Negative) Urine Blood (Negative) Urine Nitrite (Negative) Urine Bilirubin (Negative) Urine Urobilinogen (<2.0) mg/dL Ur Leukocyte Esterase (Negative) Urine RBC (0-5) /hpf Urine WBC (0-5) /hpf Ur Squamous Epith Cells (0-4) /hpf Urine Mucus (None) /hpf Urine HCG, Qual Not Detected (Not Detectd) 10/30/19 Range/Units 09:23 WBC (3.8-10.6) k/uL RBC (3.80-5.40) m/uL Hgb (11.4-16.0) gm/dL Hct (34.0-46.0) % MCV (80.0-100.0) fL MCH (25.0-35.0) pg MCHC (31.0-37.0) g/dL RDW (11.5-15.5) % Plt Count (150-450) k/uL Neutrophils % % Lymphocytes % % Monocytes % % Eosinophils % % Basophils % % Neutrophils # (1.3-7.7) k/uL Lymphocytes # (1.0-4.8) k/uL Monocytes # (0-1.0) k/uL Eosinophils # (0-0.7) k/uL Basophils # (0-0.2) k/uL Sodium (137-145) mmol/L Potassium (3.5-5.1) mmol/L Chloride (98-107) mmol/L Carbon Dioxide (22-30) mmol/L Anion Gap mmol/L BUN (7-17) mg/dL Creatinine (0.52-1.04) mg/dL Est GFR (CKD-EPI)AfAm (>60 ml/min/1.73 sqM) Est GFR (CKD-EPI)NonAf (>60 ml/min/1.73 sqM) Glucose (74-99) mg/dL Calcium (8.4-10.2) mg/dL Total Bilirubin (0.2-1.3) mg/dL AST (14-36) U/L ALT (9-52) U/L Alkaline Phosphatase (38-126) U/L Total Protein (6.3-8.2) g/dL Albumin (3.5-5.0) g/dL Lipase (23-300) U/L Urine Color Yellow Urine Appearance Clear (Clear) Urine pH 8.5 H (5.0-8.0) Ur Specific [place] 1.028 (1.001-1.035) Urine Protein 1+ H (Negative) Urine Glucose (UA) Negative (Negative) Urine Ketones 4+ H (Negative) Urine Blood Negative (Negative) Urine Nitrite Negative (Negative) Urine Bilirubin Negative (Negative) Urine Urobilinogen 3.0 (<2.0) mg/dL Ur Leukocyte Esterase Negative (Negative) Urine RBC 2 (0-5) /hpf Urine WBC 1 (0-5) /hpf Ur Squamous Epith Cells 2 (0-4) /hpf Urine Mucus Many H (None) /hpf Urine HCG, Qual (Not Detectd) Disposition Clinical Impression: Vomiting, Diarrhea, Leukocytosis Disposition: HOME SELF-CARE Condition: Good Instructions (If sedation given, give patient instructions): Acute Nausea and Vomiting (ED), Acute Diarrhea (ED) Additional Instructions: Please use medication as discussed. Please follow-up with family doctor in the next 2 days. Please return to emergency room if the symptoms increase or worsen or for any other concerns. Prescriptions: Metoclopramide HCl [Reglan] 10 mg PO Q8H PRN 3 Days #9 tablet PRN Reason: Vomiting Is patient prescribed a controlled substance at d/c from ED?: No Referrals: Gabriel Ponce MD [Primary Care Provider] - 1-2 days Time of Disposition: 12:14
[2019-10-30] MEDS ORDERED: SODIUM CHLORIDE 0.9% 1,000 ML IV SCH (09:30)
[2019-10-30 09:36] LABS: Basophils % (A) 0 %; Eosinophils # (A) 0.2 k/uL (0-0.7); Eosinophils % (A) 1 %; HCT 43.8 % (34.0-46.0); Lymphocytes # (A) 1.5 k/uL (1.0-4.8); Lymphocytes % (A) 8 %; MCH 29.4 pg (25.0-35.0); MCHC 34.4 g/dL (31.0-37.0); MCV 85.6 fL (80.0-100.0); Mean Platelet Volume 8.7; Monocytes # (A) 0.4 k/uL (0-1.0); Monocytes % (A) 3 %; Neutrophils # (A) 15.2 k/uL (1.3-7.7); Neutrophils % (A) 87 %; Platelet Count 296 k/uL (150-450); RBC 5.11 m/uL (3.80-5.40); WBC 17.3 k/uL (3.8-10.6)
[2019-10-30 09:44] LABS: Appearance,Urine Clear (Clear); Bilirubin,Urine Negative (Negative); Blood,Urine Negative (Negative); Color,Urine Yellow; Glucose,Urine (UA) Negative (Negative); Ketones,Urine 4+ (Negative); Leukocyte Esterase,Urine Negative (Negative); Mucus,Urine Many /hpf; Nitrite,Urine Negative (Negative); PH, Urine 8.5 (5.0-8.0); Protein,Urine 1+ (Negative); RBC,Urine 2 /hpf (0-5); Specific Gravity,Urine 1.028 (1.001-1.035); Squamous Epithelial Cell,Urine 2 /hpf (0-4); WBC,Urine 1 /hpf (0-5)
[2019-10-30] MEDS ORDERED: METOCLOPRAMIDE 5 MG/ML 2 ML VIAL IVP STA (10:01)
[2019-10-30 10:06] LABS: African American GFR (CKD) >90 (>60 ml/min/1.73 sqM); Albumin 4.7 g/dL (3.5-5.0); Anion Gap 12 mmol/L; Blood Urea Nitrogen 13 mg/dL (7-17); Calcium 9.5 mg/dL (8.4-10.2); Carbon Dioxide 19 mmol/L (22-30); Chloride 109 mmol/L (98-107); Glucose 106 mg/dL (74-99); Non-African American GFR(CKD) >90 (>60 ml/min/1.73 sqM); Sodium 140 mmol/L (137-145); Total Protein 8.3 g/dL (6.3-8.2)
[2019-10-30 10:14] LABS: ALT 10 U/L (9-52); AST 30 U/L (14-36); Alkaline Phosphatase 79 U/L (38-126); Potassium 3.7 mmol/L (3.5-5.1)
--- NOTE | 2019-10-30 11:49 | CT ---
EXAMINATION TYPE: CT abdomen pelvis w con DATE OF EXAM: 10/30/2019 HISTORY: mid abd pain, diarrhea, vomiting CT DLP: 852.9mGycm Automated Exposure Control for Dose Reduction was Utilized. CONTRAST: CT scan of the abdomen and pelvis is performed without oral but with IV Contrast, patient injected wi th 100 mL of Isovue 300. COMPARISON: CT abdomen and pelvis June 01, 2019 and older studies. FINDINGS: LUNG BASES: No significant abnormality is appreciated. LIVER/GB: Cholecystectomy clips are redemonstrated. Mild prominence of biliary ducts unchanged from p rior study presumed product of cholecystectomy. PANCREAS: No significant abnormality is seen. SPLEEN: No significant abnormality is seen. ADRENALS: No significant abnormality is seen. KIDNEYS: Stable heterogeneous partially exophytic 1.8 x 0.7 cm lesion posteriorly left kidney image 3 2 versus several prior studies. Solid mass or neoplasm not excluded even stability. Washout is presen t on delayed images. Subcentimeter low dense lesion left kidney stable. BOWEL: Suboptimal evaluation of bowel without enteric contrast. Stomach is poorly distended and subop timally evaluated. No suspicious small or large bowel dilatation. UTERUS/ADNEXA: Retroverted uterus. Bilateral adnexal cystic lesions axial image 69 on current study. Left-sided lesion is larger but slightly decreased in size from most recent CT measuring 4.3 x 4.0 cm axial image 67 versus 5.3 x 5.0 cm prior study axial image 66. Persistent mild wall thickening in th is lesion. Prominent draining left ovarian vein axial image 57 redemonstrated. Right adnexal lesion m easures 3.3 x 2.4 cm. LYMPH NODES: No greater than 1cm abdominal or pelvic lymph nodes are appreciated. OSSEOUS STRUCTURES: Redemonstration of some facet arthropathy lower lumbar spine. OTHER: No significant additional abnormality is seen. IMPRESSION: Diminished size to 4.3 cm left ovarian cystic lesion with persistent slightly thickened w all versus most recent CT. New 3.3 cm right ovarian cystic lesion. Interval resolution of pelvic flui d and inflammatory change from prior CT. Possible persistent left-sided pelvic congestion syndrome. N o suspicious new or acute findings are seen. No bowel obstruction is noted.
[2019-10-30 12:25] VITALS: BP 152/81; PULSE 89; RESP 17
== END 2019-10-30 12:20 | disposition home or self-care (01) ==
LOC: EC 08:52
DX: D72.829 Elevated white blood cell count, unspecified (principal); R11.10 Vomiting, unspecified; R19.7 Diarrhea, unspecified; N83.201 Unspecified ovarian cyst, right side; N28.89 Other specified disorders of kidney and ureter; E07.9 Disorder of thyroid, unspecified; M79.7 Fibromyalgia; E03.9 Hypothyroidism, unspecified; F31.9 Bipolar disorder, unspecified; F17.200 Nicotine dependence, unspecified, uncomplicated; Z79.890 Hormone replacement therapy; Z79.899 Other long term (current) drug therapy; Z88.1 Allergy status to other antibiotic agents; Z91.048 Other nonmedicinal substance allergy status; Z88.8 Allergy status to other drugs, medicaments and biological substances; Z90.49 Acquired absence of other specified parts of digestive tract
CPT/HCPCS: 36415; 80053; 83690; 85025; 81001; 81025; 74177; 99284; 96374; 96375 ×2; 96361 ×3; J2270; J2765; J2405; Q9967

== ENCOUNTER → 2019-11-19 | Outpatient (CLI) | payer OTHER ==
--- NOTE | 2019-11-19 14:50 | US ---
EXAMINATION TYPE: US pelvic complete DATE OF EXAM: 11/19/2019 COMPARISON: CT 10/30/2019 CLINICAL HISTORY: N83.20 previous ovarian cyst. Left pelvic pain TECHNIQUE: Transabdominal (TA). Date of LMP: 11/09/19 EXAM MEASUREMENTS: Uterus: 8.2 x 3.4 x 4.2 cm Endometrial Stripe: 0.4 cm Right Ovary: 3.5 x 1.8 x 1.7 cm Left Ovary: 4.3 x 4.4 x 5.2 cm A scale and color Doppler imaging performed 1. Uterus: Anteverted 2. Endometrium: appears wnl 3. Right Ovary: follicles noted 4. Left Ovary: cystic area = 3.3 x 3.7 x 4.9cm 5. Bilateral Adnexa: wnl 6. Posterior cul-de-sac: wnl IMPRESSION: Left ovarian cyst
== END | disposition home or self-care (01) ==
LOC: RADUSWWP 13:27
PROVIDERS: ATTEND Obstetrics & Gynecology
DX: N83.202 Unspecified ovarian cyst, left side (principal)
CPT/HCPCS: 76856

== ENCOUNTER 2020-09-06 10:55 | Day surgery (SDC) | payer OTHER ==
[2020-09-02 16:07] VITALS: BMI 26.7
[~2020-09-06 10:55] MED LIST changes: -HYDROmorphone 0.5 MG/0.5 ML SYRINGE IVP PRN; -MIDAZOLAM 2 MG/2 ML VIAL IV PRN; -ONDANSETRON 4 MG/2 ML VIAL IVP ONE; -Pre Op ABX Message 1 EACH MISC MISCELLANE ONE; -SCOPOLAMINE 1.5MG/72HR PATCH TRANSDERM ONE
[2020-09-06 11:16] VITALS: TEMP 96.8
[2020-09-06] MEDS ORDERED: LIDOCAINE 1% (10MG/ML) FOR IV START INTRADERMA ONE (11:20)
[2020-09-06] MEDS ORDERED: MIDAZOLAM 2 MG/2 ML VIAL ONE (11:38)
[2020-09-06] MEDS ORDERED: ROPIVACAINE 5MG/ML 20ML VIAL ONE (11:38)
[2020-09-06] MEDS ORDERED: CLIDINIUM-chlordiazePOXIDE (2.5-5 MG) CAP ONE (11:38)
[2020-09-06] MEDS ORDERED: DEXAMETHASONE SOD PHOSPHATE 10 MG/ML 1 ML VIAL ONE (11:38)
[2020-09-06] MEDS ORDERED: fentaNYL (PF) 50 MCG/ML 2 ML AMP ONE (11:38)
--- NOTE | 2020-09-06 11:50 | P.PCN ---
Date of Procedure: 09/06/20 Surgeon: Lisa Flacon Pathology: none sent Condition: stable Disposition: PACU Description of Procedure: Surgeon: Lisa Falcon Pathology: none sent Condition: stable Disposition: PACU Description of Procedure: Pre-operative diagnosis: 1- Bilateral occipital neuralgea Post Operative Diagnosis 1- Bilateral occipital neuralgea Procedure: 1- Bilateral greater occipital nerve block ANESTHESIA:IV moderate conscious sedation with fentanyl and Versed EBL: Minimal PROCEDURE INDICATION: The patient with neck pain and headache secondary to occipital neuralgea unresponsive to conservative treatments. PROCEDURE DESCRIPTION / TECHNIQUE: The patient was seen and identified in the preoperative area. Risks, benefits, complications, and alternatives were discussed with the patient, the patient agreed to proceed with the procedure and signed the consent. IV was started. Vital signs remained stable throughout the procedure. Patient was taken to the OR and time out was completed. The patient was placed in the prone position on the procedure table. A pillow was placed under the patients chest to increase the cervical interlaminar space. The cervical area and right occiptial area were prepped with chloraprep. Critical pause was taken. Vital signs were closely monitored during the procedure. Conscious sedation was used during the procedure to decrease patients anxiety. The the occipital exuberance and superior nuchal line were identified on the right side of the occiput. The greater occipital nerve location was estimated to be medial to the occipital artery and one third of the distance between the occipital exuberance and the right mastoid and the lesser occipital nerve was about two thirds of the distance between the occipital exuberance and the right mastoid on the superior nuchal line. I used 25-gauge 1-1/2 inch needle to go through the skin at these 2 points and infiltrate 2.5 MLS of a solution made up of 5 MLS Ropivacaine 0.5% +10 mg of Decadron. The solution was infiltrated down to the periosteum.The same procedure was repeated on the left side. Patient tolerated procedure well.
[2020-09-06] MEDS ORDERED: IV FLUID CONTINUATION 1,000 ML IV ONE (11:52)
[2020-09-06 12:11] VITALS: BP 152/96; PULSE 73; RESP 18
== END 2020-09-06 12:36 | disposition home or self-care (01) ==
LOC: ORPAIN 10:55
PROVIDERS: ATTEND Anesthesiology
DX: M54.81 Occipital neuralgia (principal); K21.9 Gastro-esophageal reflux disease without esophagitis; Z88.1 Allergy status to other antibiotic agents; Z79.899 Other long term (current) drug therapy; Z91.02 Food additives allergy status; Z88.8 Allergy status to other drugs, medicaments and biological substances
CPT/HCPCS: 81025; 64405; J1100; J3010; J2795

== ENCOUNTER → 2020-09-22 | Outpatient (CLI) | payer OTHER ==
--- NOTE | 2020-09-23 11:27 | MM ---
Reason for exam: screening (asymptomatic). Last mammogram was performed 1 year and 3 months ago. History: Patient had first child after 32. Benign MG pre op needle loc RT of the right breast, May 07, 2017. Took hormonal contraceptives for 17 years. Physical Findings: A clinical breast exam by your physician is recommended on an annual basis and results should be correlated with mammographic findings. MG Screening Mammo w CAD Bilateral CC, MLO, and XCCL view(s) were taken. Prior study comparison: July 02, 2019, bilateral MG screening mammo w CAD. April 23, 2017, mammogram. The breast tissue is heterogeneously dense. This may lower the sensitivity of mammography. Finding: There is stable architectural distortion in the upper quadrant of the right breast. Focal asymmetry right lower inner quadrant middle depth. New finding since July 02, 2019 and April 23, 2017. ASSESSMENT: Incomplete: need additional imaging evaluation, BI-RAD 0 RECOMMENDATION: Special view mammogram of the right breast. If lesion persists on supplemental views, image directed ultrasound is recommended. [facility] will attempt to contact patient to return for supplemental views and ultrasound if indicated.
== END | disposition home or self-care (01) ==
LOC: RADMAMWWP 13:05
PROVIDERS: ATTEND Internal Medicine
DX: Z12.31 Encounter for screening mammogram for malignant neoplasm of breast (principal)
CPT/HCPCS: 77067

== ENCOUNTER → 2020-10-06 | Outpatient (CLI) | payer OTHER ==
--- NOTE | 2020-10-06 14:57 | MM ---
Reason for exam: additional evaluation requested from abnormal screening. Last mammogram was performed less than 1 month ago. History: Patient had first child after 32. Benign MG pre op needle loc RT of the right breast, May 07, 2017. Took hormonal contraceptives for 17 years. Physical Findings: Nurse did not find any significant physical abnormalities on exam. MG Work Up Mamm w CAD RT Spot compression CC, spot compression MLO, and LM view(s) were taken of the right breast. Prior study comparison: September 22, 2020, bilateral MG screening mammo w CAD. July 02, 2019, bilateral MG screening mammo w CAD. The breast tissue is heterogeneously dense. This may lower the sensitivity of mammography. There is no discrete abnormality. These results were verbally communicated with the patient and result sheet given to the patient on 10/06/20. ASSESSMENT: Benign, BI-RAD 2 RECOMMENDATION: Return to routine screening mammogram schedule for both breasts.
== END | disposition home or self-care (01) ==
LOC: RADMAMWWP 14:14
PROVIDERS: ATTEND Internal Medicine
DX: R92.8 Other abnormal and inconclusive findings on diagnostic imaging of breast (principal)
CPT/HCPCS: 77065

== ENCOUNTER → 2020-10-07 | Outpatient (CLI) | payer OTHER ==
--- NOTE | 2020-10-08 02:13 | MR ---
EXAMINATION TYPE: MR lumbar spine wo con DATE OF EXAM: 10/07/2020 COMPARISON: None HISTORY: Lower back and bilateral leg pain x 1 year, no hx trauma/surgery. Multiplanar multiecho imaging of the lumbar spine was performed without contrast. Lumbar vertebra have normal alignment. Disc spaces are fairly normal. There is no compression fractur e. I see no bony destructive process. The neural foramina appear widely patent. Lumbar nerve roots ap pear normal. There is no lumbar paraspinal mass. The posterior elements appear intact. The visualized sacroiliac j oints appear intact. IMPRESSION: Lumbar spine appears fairly normal for age. No lumbar disc herniation or spinal stenosis. No fracture .
== END | disposition home or self-care (01) ==
LOC: RADMRIMAIN 19:29
PROVIDERS: ATTEND Internal Medicine
DX: M51.36 Other intervertebral disc degeneration, lumbar region (principal)
CPT/HCPCS: 72148

== ENCOUNTER 2020-10-18 12:00 | Day surgery (SDC) | payer OTHER ==
[2020-10-14 10:03] VITALS: BMI 26.2
[2020-10-18] MEDS ORDERED: LACTATED RINGERS 1,000 ML IV ONE (12:20)
[2020-10-18] MEDS ORDERED: ROPIVACAINE 5MG/ML 20ML VIAL ONE (12:38)
[2020-10-18] MEDS ORDERED: methylPREDNISolone ACETATE 40 MG/ML 1 ML VIAL ONE (12:38)
[2020-10-18 12:42] VITALS: RESP 16; TEMP 97.7
--- NOTE | 2020-10-18 12:52 | P.PCN ---
Date of Procedure: 10/18/20 Procedure(s) Performed: Preoperative diagnoses= 1- Greater occipital neuralgia Postoperative diagnoses= same as preoperative diagnosis. Procedure= Bilateral Greater occipital nerve block Anesthesia= local infiltration with lidocaine 1% 4 ml only ,no IV sedations Estimated blood loss=minimal. Procedure indication= the patient had a history of severe chronic neck pain ,and headache, diagnosed with occipital neuralgia exam was positive for severe tenderness over the occipital nerve bilaterally, she will be a good candidate occipital nerve block, patient failed conservative management Procedure description= the patient was seen and identified in the preoperative holding area, risks and benefits and alternative of the procedure and possible complications discussed with the patient, and he agreed with the preceding, and vital signs were monitored and were stable throughout the procedure, patient was placed in the sitting position or table and the neck area was prepped and draped with a sterile fashion, vital signs were closely monitored during the procedure, 25-gauge needle advanced 1 inch lateral to the occipital protuberance on the right side, at the location of the right occipital nerve , then after negative aspiration for heme and CSF and there was no paresthesia during the injection, 6 ml of Robivacaine 0.5% and 20 mg of Depo-medol injected after negative aspiration, the needle removed, and the entire same procedure was repeated for the left Greater occipital nerve. Patient tolerated the procedure well without any complication, The patient returned to supine position after the back was cleaned and a Band- Aid applied, the patient transported to recovery room in stable condition and he was monitored for 30 minutes before he was discharged home and then patient was reexamined before going home and patient was discharged in stable condition and patient will follow up with the pain clinic in a few weeks.
[2020-10-18 12:56] VITALS: BP 135/77; PULSE 74
[2020-10-18] MEDS ORDERED: IV FLUID CONTINUATION 1,000 ML IV ONE (13:03)
== END 2020-10-18 13:14 | disposition home or self-care (01) ==
LOC: ORPAIN 12:00
PROVIDERS: ATTEND Specialist
DX: M54.81 Occipital neuralgia (principal); Z88.1 Allergy status to other antibiotic agents; Z88.8 Allergy status to other drugs, medicaments and biological substances; Z91.09 Other allergy status, other than to drugs and biological substances; Z88.4 Allergy status to anesthetic agent
CPT/HCPCS: 64405; J1030; J2795

== ENCOUNTER → 2020-11-07 | Outpatient (CLI) | payer OTHER ==
[2020-11-07 14:40] VITALS: BP 144/69; PULSE 43; RESP 18; TEMP 98.4
--- NOTE | 2020-11-07 14:42 | P.PN ---
Subjective Progress Note Date: 11/07/20 This is a 45-year-old lady with history of chronic headache due to occipital neuralgia and history of migraine. The patient received bilateral occipital nerve block twice which helped decrease the frequency of her migraine headache as she states to 3 times a week . And the headache now is easier to be co ntrolled by Tylenol than it was before the injections. The patient denies any paresthesia in the upper or lower extremities or any weakness. She denies any bowel or bladder dysfunction. By physical exam she has normal muscle strength in the upper extremities bilaterally and symmetrically. She has tenderness in the suboccipital area bilaterally. She has normal range of motion of the cervical spine. Diagnoses: Occipital neuralgia Cervical spondylosis without myelopathy Fibromyalgia Myofascial pain Plan: The patient will give us a call when her headache gets worse and then we'll schedule her for bilateral occipital nerve block preferably without steroids.
== END | disposition home or self-care (01) ==
LOC: PNWHC3 14:18
PROVIDERS: ATTEND Anesthesiology
DX: M47.812 Spondylosis without myelopathy or radiculopathy, cervical region (principal); M54.81 Occipital neuralgia; M79.7 Fibromyalgia
CPT/HCPCS: 99211

== ENCOUNTER 2020-11-29 07:51 | Emergency (ER) | payer OTHER ==
[2020-11-29 07:57] VITALS: PULSE 68; RESP 18; TEMP 98.6
[2020-11-29] MEDS ORDERED: SODIUM CHLORIDE 0.9% 1,000 ML IV STA (08:14)
[2020-11-29] MEDS ORDERED: ONDANSETRON 4 MG/2 ML VIAL IVP STA (08:14)
[2020-11-29] MEDS ORDERED: SODIUM CHLORIDE 0.9% 500 ML 500 ML IV STA (08:14)
[2020-11-29] MEDS ORDERED: HYDROmorphone 0.5 MG/0.5 ML SYRINGE IVP STA (08:14)
--- NOTE | 2020-11-29 08:30 | ED ---
General Adult HPI - General Source: patient, RN notes reviewed Mode of arrival: ambulatory Limitations: no limitations <Kevan Beckwith - Last Filed: 11/29/20 10:09> <Ramona Bailey - Last Filed: 12/01/20 00:17> - General Chief complaint: Nausea/Vomiting/Diarrhea Stated complaint: Vomiting x3 Days Time Seen by Provider: 11/29/20 08:11 - History of Present Illness Initial comments: 45-year-old female presents emergency Department with chief complaint of nausea vomiting abdominal pain. Patient states started 3-4 days ago has progressively worsen. Patient has history of pancreatitis she has some her. She denies any chest pain or shortness breath denies any back pain. She states that she's had a prior cholecystectomy. She also missed some diarrhea no fever she's had chills no sick contacts. (Kevan Beckwith) - Related Data Home Medications Medication Instructions Recorded Confirmed Gabapentin [Neurontin] 400 mg PO QID 05/03/17 11/29/20 lamoTRIgine [LaMICtal] 200 mg PO BID 02/03/19 11/29/20 QUEtiapine FUMARATE [SEROquel] 400 mg PO HS 08/17/20 11/29/20 DULoxetine HCL [Cymbalta] 60 mg PO DAILY 09/02/20 11/29/20 Vortioxetine Hydrobromide 5 mg PO DAILY 09/02/20 11/29/20 [Trintellix] guanFACINE HCL [Intuniv] 2 mg PO HS 09/02/20 11/29/20 Baclofen 10 mg PO TID 10/14/20 11/29/20 Previous Rx's Medication Instructions Recorded Pantoprazole [Protonix] 40 mg PO BID #60 tablet. 02/05/19 Omeprazole [PriLOSEC] 40 mg PO DAILY #14 cap 11/29/20 Ondansetron Odt [Zofran Odt] 4 mg PO Q8HR PRN #14 tab 11/29/20 Sucralfate [Carafate] 1 gm PO BID #20 tablet 11/29/20 Allergies Allergy/AdvReac Type Severity Reaction Status Date / Time cefaclor [From [facility]] Allergy Anaphylaxis Verified 11/29/20 09:51 prednisone Allergy Rapid Verified 11/29/20 09:51 Heart Rate adhesive tape AdvReac Rash/Hives Verified 11/29/20 09:51 amoxicillin [From Augmentin] AdvReac Nausea & Verified 11/29/20 09:51 Vomiting clavulanic acid AdvReac Nausea & Verified 11/29/20 09:51 [From Augmentin] Vomiting fentanyl AdvReac Made me Verified 11/29/20 09:51 hyper Review of Systems ROS Other: All systems not noted in ROS Statement are negative. <Kevan Beckwith - Last Filed: 11/29/20 10:09> ROS Other: All systems not noted in ROS Statement are negative. <Ramona Bailey - Last Filed: 12/01/20 00:17> ROS Statement: Those systems with pertinent positive or pertinent negative responses have been documented in the HPI. Past Medical History Past Medical History: Fibromyalgia, GERD/Reflux Additional Past Medical History / Comment(s): Fibromyalgia multiple joints, IBS, sphincter of Oddi dysfunction-caused elevated LFT, thyroid levels at low normal, no longer taking rx, chronic low back pain, pancreatitis. History of Any Multi-Drug Resistant Organisms: MRSA Date of last positivie culture/infection: 2009 MDRO Source:: BILAT GROIN Past Surgical History: Breast Surgery, Cholecystectomy Additional Past Surgical History / Comment(s): R BREAST U/S GUIDED BREAST BX THEN CYSTECTOMY, CERVICAL FUSION, SINUS X2, EGD/COLONOSCOPY, ovarian cyst re moval Past Anesthesia/Blood Transfusion Reactions: Postoperative Nausea & Vomiting (PONV) Past Psychological History: Anxiety, Bipolar Smoking Status: Current every day smoker Past Alcohol Use History: Rare Past Drug Use History: Marijuana - Past Family History Father Family Medical History: Cancer, Diabetes Mellitus Additional Family Medical History / Comment(s): SKIN CANCER. Mother Family Medical History: Fibromyalgia Additional Family Medical History / Comment(s): Mother is bipolar. <Kevan Beckwith - Last Filed: 11/29/20 10:09> General Exam Limitations: no limitations General appearance: alert, in no apparent distress Head exam: Present: atraumatic, normocephalic, normal inspection Eye exam: Present: normal appearance, PERRL, EOMI. Absent: scleral icterus, conjunctival injection, periorbital swelling Neck exam: Present: normal inspection. Absent: tenderness, meningismus, lymphadenopathy Respiratory exam: Present: normal lung sounds bilaterally. Absent: respiratory distress, wheezes, rales, rhonchi, stridor Cardiovascular Exam: Present: regular rate, normal rhythm, normal heart sounds. Absent: systolic murmur, diastolic murmur, rubs, gallop, clicks GI/Abdominal exam: Present: soft, tenderness (Moderate mid to epigastric tenderness), normal bowel sounds. Absent: distended, guarding, rebound, rigid Back exam: Absent: CVA tenderness (R), CVA tenderness (L) Neurological exam: Present: alert Skin exam: Present: warm, dry, intact, normal color. Absent: rash <Kevan Beckwith - Last Filed: 11/29/20 10:09> Course Vital Signs 11/29/20 11/29/20 07:53 10:07 Temperature 98.6 F Pulse Rate 68 68 Respiratory 18 18 Rate Blood Pressure 145/73 132/77 O2 Sat by Pulse 99 100 Oximetry Medical Decision Making - Lab Data Result diagrams: 11/29/20 08:25 11/29/20 08:25 <Kevan Beckwith - Last Filed: 11/29/20 10:09> - Lab Data Result diagrams: 11/29/20 08:25 11/29/20 08:25 <Ramona Bailey - Last Filed: 12/01/20 00:17> - Medical Decision Making 45-year-old presented for nausea vomiting diarrhea. Symptoms have been persistent, patient evidence of lactic acidosis, leukocytosis. Patient was well-hydrated CT shows evidence of colitis, gastritis. Patient discharged with antiemetics, omeprazole. Patient will follow-up with GI return for any worsening change in symptoms. Patient CT shows evidence of ovarian cyst patient has no lower abdominal pain she does have a history of ovarian cyst is unchanged. (Kevan Beckwith) I was available for consultation in the emergency department. The history and physical exam were done by the midlevel provider. I was consulted for this patients care. I reviewed the case with the midlevel provider and based on their presentation of the patient, I agree with the assessment, medical decision making and plan of care as documented. Chart was dictated using [employer] dictation software. Attempts were made to correct any dictation errors however some typographical errors may persist. Patient was seen during a national state of emergency due to the Covid-19 pandemic. (Ramona Bailey) - Lab Data Lab Results 11/29/20 11/29/20 11/29/20 Range/Units 08:25 08:25 08:25 WBC 17.5 H (3.8-10.6) k/uL RBC 5.09 (3.80-5.40) m/uL Hgb 14.9 (11.4-16.0) gm/dL Hct 43.6 (34.0-46.0) % MCV 85.7 (80.0-100.0) fL MCH 29.2 (25.0-35.0) pg MCHC 34.1 (31.0-37.0) g/dL RDW 13.4 (11.5-15.5) % Plt Count 340 (150-450) k/uL MPV 8.5 Neutrophils % 88 % Lymphocytes % 8 % Monocytes % 2 % Eosinophils % 0 % Basophils % 0 % Neutrophils # 15.4 H (1.3-7.7) k/uL Lymphocytes # 1.5 (1.0-4.8) k/uL Monocytes # 0.4 (0-1.0) k/uL Eosinophils # 0.1 (0-0.7) k/uL Basophils # 0.1 (0-0.2) k/uL Sodium 138 (137-145) mmol/L Potassium 3.4 L (3.5-5.1) mmol/L Chloride 106 (98-107) mmol/L Carbon Dioxide 21 L (22-30) mmol/L Anion Gap 11 mmol/L BUN 15 (7-17) mg/dL Creatinine 0.83 (0.52-1.04) mg/dL Est GFR (CKD-EPI)AfAm >90 (>60 ml/min/1.73 sqM) Est GFR (CKD-EPI)NonAf 87 (>60 ml/min/1.73 sqM) Glucose 141 H (74-99) mg/dL Lactic Ac Sepsis Rflx Plasma Lactic Acid Jose (0.7-2.0) mmol/L Calcium 10.1 (8.4-10.2) mg/dL Total Bilirubin 0.8 (0.2-1.3) mg/dL AST 28 (14-36) U/L ALT 22 (4-34) U/L Alkaline Phosphatase 88 (38-126) U/L Total Protein 8.0 (6.3-8.2) g/dL Albumin 4.8 (3.5-5.0) g/dL Amylase 70 (30-110) U/L Lipase 37 (23-300) U/L Urine Color Yellow Urine Appearance Cloudy H (Clear) Urine pH 6.0 (5.0-8.0) Ur Specific [place] 1.028 (1.001-1.035) Urine Protein 1+ H (Negative) Urine Glucose (UA) Negative (Negative) Urine Ketones 4+ H (Negative) Urine Blood Trace H (Negative) Urine Nitrite Negative (Negative) Urine Bilirubin Negative (Negative) Urine Urobilinogen <2.0 (<2.0) mg/dL Ur Leukocyte Esterase Negative (Negative) Urine RBC 1 (0-5) /hpf Urine WBC 1 (0-5) /hpf Ur Squamous Epith Cells 5 H (0-4) /hpf Urine Bacteria Rare H (None) /hpf Urine Mucus Many H (None) /hpf Urine HCG, Qual (Not Detectd) 11/29/20 11/29/20 11/29/20 Range/Units 08:25 08:25 08:58 WBC (3.8-10.6) k/uL RBC (3.80-5.40) m/uL Hgb (11.4-16.0) gm/dL Hct (34.0-46.0) % MCV (80.0-100.0) fL MCH (25.0-35.0) pg MCHC (31.0-37.0) g/dL RDW (11.5-15.5) % Plt Count (150-450) k/uL MPV Neutrophils % % Lymphocytes % % Monocytes % % Eosinophils % % Basophils % % Neutrophils # (1.3-7.7) k/uL Lymphocytes # (1.0-4.8) k/uL Monocytes # (0-1.0) k/uL Eosinophils # (0-0.7) k/uL Basophils # (0-0.2) k/uL Sodium (137-145) mmol/L Potassium (3.5-5.1) mmol/L Chloride (98-107) mmol/L Carbon Dioxide (22-30) mmol/L Anion Gap mmol/L BUN (7-17) mg/dL Creatinine (0.52-1.04) mg/dL Est GFR (CKD-EPI)AfAm (>60 ml/min/1.73 sqM) Est GFR (CKD-EPI)NonAf (>60 ml/min/1.73 sqM) Glucose (74-99) mg/dL Lactic Ac Sepsis Rflx Y Plasma Lactic Acid Jose 2.9 H* (0.7-2.0) mmol/L Calcium (8.4-10.2) mg/dL Total Bilirubin (0.2-1.3) mg/dL AST (14-36) U/L ALT (4-34) U/L Alkaline Phosphatase (38-126) U/L Total Protein (6.3-8.2) g/dL Albumin (3.5-5.0) g/dL Amylase (30-110) U/L Lipase (23-300) U/L Urine Color Urine Appearance (Clear) Urine pH (5.0-8.0) Ur Specific [place] (1.001-1.035) Urine Protein (Negative) Urine Glucose (UA) (Negative) Urine Ketones (Negative) Urine Blood (Negative) Urine Nitrite (Negative) Urine Bilirubin (Negative) Urine Urobilinogen (<2.0) mg/dL Ur Leukocyte Esterase (Negative) Urine RBC (0-5) /hpf Urine WBC (0-5) /hpf Ur Squamous Epith Cells (0-4) /hpf Urine Bacteria (None) /hpf Urine Mucus (None) /hpf Urine HCG, Qual Not Detected (Not Detectd) Disposition Is patient prescribed a controlled substance at d/c from ED?: No Time of Disposition: 10:11 <Kevan Beckwith - Last Filed: 11/29/20 10:09> <Ramona Bailey - Last Filed: 12/01/20 00:17> Clinical Impression: Gastritis, Colitis, Abdominal pain, Nausea vomiting and diarrhea Disposition: HOME SELF-CARE Condition: Stable Instructions (If sedation given, give patient instructions): Gastritis (ED), Abdominal Pain (ED) Additional Instructions: Please return to the Emergency Department if symptoms worsen or any other concerns. Prescriptions: Sucralfate [Carafate] 1 gm PO BID #20 tablet Omeprazole [PriLOSEC] 40 mg PO DAILY #14 cap Ondansetron Odt [Zofran Odt] 4 mg PO Q8HR PRN #14 tab PRN Reason: Nausea Referrals: Gabriel Ponce MD [Primary Care Provider] - 1-2 days Anabel Echavarria MD [STAFF PHYSICIAN] - 1-2 days
[2020-11-29 08:44] LABS: Basophils # (A) 0.1 k/uL (0-0.2); Basophils % (A) 0 %; Eosinophils # (A) 0.1 k/uL (0-0.7); Eosinophils % (A) 0 %; HCT 43.6 % (34.0-46.0); HGB 14.9 gm/dL (11.4-16.0); Lymphocytes # (A) 1.5 k/uL (1.0-4.8); Lymphocytes % (A) 8 %; MCH 29.2 pg (25.0-35.0); MCHC 34.1 g/dL (31.0-37.0); MCV 85.7 fL (80.0-100.0); Mean Platelet Volume 8.5; Monocytes # (A) 0.4 k/uL (0-1.0); Monocytes % (A) 2 %; Neutrophils # (A) 15.4 k/uL (1.3-7.7); Neutrophils % (A) 88 %; Platelet Count 340 k/uL (150-450); RBC 5.09 m/uL (3.80-5.40); RDW 13.4 % (11.5-15.5); WBC 17.5 k/uL (3.8-10.6)
[2020-11-29 08:51] LABS: ALT 22 U/L (4-34); AST 28 U/L (14-36); African American GFR (CKD) >90 (>60 ml/min/1.73 sqM); Albumin 4.8 g/dL (3.5-5.0); Alkaline Phosphatase 88 U/L (38-126); Amylase 70 U/L (30-110); Anion Gap 11 mmol/L; Blood Urea Nitrogen 15 mg/dL (7-17); Calcium 10.1 mg/dL (8.4-10.2); Carbon Dioxide 21 mmol/L (22-30); Chloride 106 mmol/L (98-107); Glucose 141 mg/dL (74-99); Lipase 37 U/L (23-300); Non-African American GFR(CKD) 87 (>60 ml/min/1.73 sqM); Potassium 3.4 mmol/L (3.5-5.1); Sodium 138 mmol/L (137-145); Total Bilirubin 0.8 mg/dL (0.2-1.3)
[2020-11-29 09:00] LABS: Appearance,Urine Cloudy (Clear); Bacteria,Urine Rare /hpf; Bilirubin,Urine Negative (Negative); Blood,Urine Trace (Negative); Color,Urine Yellow; Glucose,Urine (UA) Negative (Negative); Ketones,Urine 4+ (Negative); Leukocyte Esterase,Urine Negative (Negative); Mucus,Urine Many /hpf; Nitrite,Urine Negative (Negative); Protein,Urine 1+ (Negative); RBC,Urine 1 /hpf (0-5); Specific Gravity,Urine 1.028 (1.001-1.035); Squamous Epithelial Cell,Urine 5 /hpf (0-4); Urobilinogen,Urine <2.0 mg/dL (<2.0); WBC,Urine 1 /hpf (0-5)
[2020-11-29] MEDS ORDERED: diphenhydrAMINE 50 MG/ML 1 ML VIAL IVP STA (09:16)
[2020-11-29] MEDS ORDERED: METOCLOPRAMIDE 5 MG/ML 2 ML VIAL IVP STA (09:16)
--- NOTE | 2020-11-29 10:05 | CT ---
EXAMINATION TYPE: CT abdomen pelvis w con DATE OF EXAM: 11/29/2020 COMPARISON: 10/30/2019, 06/21/2017 HISTORY: 45-year-old female with abdominal pain TECHNIQUE: Contiguous axial scanning of the abdomen and pelvis following administration of 100 ml Iso dank 300 IV contrast. Delayed images through the kidneys and coronal/sagittal reconstructions perform ed. CT DLP: 839.3 mGycm Automated exposure control for dose reduction was used. FINDINGS: Heart normal size without pericardial effusion. Unchanged 1 cm nodularity along the anterior distal esophagus, axial image 5. This is unchanged from 2017 and could represent a chronic postinflammatory lymph node or tiny esophageal duplication cyst. L rahat bases clear without pleural effusion. No focal liver lesion. Mild prominence to the intrahepatic biliary system. Bile duct is stable at 6 m m with changes of prior cholecystectomy. Portal venous system is patent. Adrenal glands, right kidney, and pancreas show no gross abnormality. There may be some generalized wall thickening of the stomach. Tiny calcified granuloma within the spleen.. No dilated small bowel, free fluid, or free air. No mesenteric or retroperitoneal lymphadenopathy. Portions of a normal appendix are visualized. Mild circumferential wall thickening along the ascending and transverse colon. This appearance may be due to nondistention. No significant stool burden. Bladder not distended. Uterus anteverted. A tampon is present. Mildly complex, septated cystic lesio n of the left ovary measuring up to 6.1 x 4.6 x 3.8 cm. This is in comparison to 5.3 x 4.3 cm, previo usly. The previous cystic lesion of the right ovary has involuted. Bones: Mild degenerative change of the hips. No osseous structure process. IMPRESSION: 1. POSSIBLE GENERALIZED FOLD THICKENING WITHIN THE STOMACH AND MILD CIRCUMFERENTIAL WALL THICKENING A LONG THE ASCENDING AND TRANSVERSE COLON. THIS MAY BE SECONDARY TO NONDISTENTION. CORRELATE FOR NONSPE CIFIC GASTRITIS/COLITIS. 2. COMPLEX, THINLY SEPTATED CYSTIC LESION OF THE LEFT OVARY MEASURING 6.1 X 4.6 CM (VERSUS 5.3 X 4.3 CM ON 10/30/2019). POSSIBLE RECURRENT FUNCTIONAL CYST. FOLLOW-UP ULTRASOUND IN 6-8 WEEKS TO ENSURE INV OLUTION. IF THE LESION PERSISTS, A CYSTIC EPITHELIAL OVARIAN NEOPLASM WOULD BE IN THE DIFFERENTIAL.
[2020-11-29 10:07] VITALS: BP 132/77
[2020-11-29] MEDS ORDERED: PANTOPRAZOLE 40 MG/10 ML VIAL IVP STA (10:09)
== END 2020-11-29 10:20 | disposition home or self-care (01) ==
LOC: EC 07:51
DX: K52.9 Noninfective gastroenteritis and colitis, unspecified (principal); N83.202 Unspecified ovarian cyst, left side; F41.9 Anxiety disorder, unspecified; F31.9 Bipolar disorder, unspecified; Z79.899 Other long term (current) drug therapy; F17.200 Nicotine dependence, unspecified, uncomplicated; Z88.0 Allergy status to penicillin; Z88.1 Allergy status to other antibiotic agents; Z88.8 Allergy status to other drugs, medicaments and biological substances; Z91.048 Other nonmedicinal substance allergy status; Z98.1 Arthrodesis status; Z86.14 Personal history of Methicillin resistant Staphylococcus aureus infection; Z90.49 Acquired absence of other specified parts of digestive tract
CPT/HCPCS: 36415; 80053; 82150; 83605; 83690; 85025; 81001; 81025; 74177; 99284; 96374; 96375 ×4; 96361; J1200; J2765; J2405; C9113; J1170; Q9967

== ENCOUNTER 2020-12-08 13:10 | Day surgery (SDC) | payer OTHER ==
[2020-12-08 13:30] VITALS: TEMP 97.8
[2020-12-08] MEDS ORDERED: LACTATED RINGERS 1,000 ML IV SCH (13:31)
[2020-12-08] MEDS ORDERED: ROPIVACAINE 5MG/ML 20ML VIAL ONE (14:15)
[2020-12-08] MEDS ORDERED: methylPREDNISolone ACETATE 40 MG/ML 1 ML VIAL ONE (14:15)
--- NOTE | 2020-12-08 14:24 | P.PCN ---
Date of Procedure: 12/08/20 Procedure(s) Performed: Preoperative diagnoses= 1- Greater occipital neuralgia Postoperative diagnoses= same as preoperative diagnosis. Procedure= Bilateral Greater occipital nerve block Anesthesia= local infiltration with lidocaine 1% 4 ml only ,no IV sedations Estimated blood loss=minimal. Procedure indication= the patient had a history of severe chronic neck pain ,and headache, diagnosed with occipital neuralgia exam was positive for severe tenderness over the occipital nerve bilaterally, she will be a good candidate occipital nerve block, patient failed conservative management Procedure description= the patient was seen and identified in the preoperative holding area, risks and benefits and alternative of the procedure and possible complications discussed with the patient, and he agreed with the preceding, and vital signs were monitored and were stable throughout the procedure, patient was placed in the sitting position or table and the neck area was prepped and draped with a sterile fashion, vital signs were closely monitored during the procedure, 25-gauge needle advanced 1 inch lateral to the occipital protuberance on the right side, at the location of the right occipital nerve , then after negative aspiration for heme and CSF and there was no paresthesia during the injection, 6 ml of Robivacaine 0.5% and 20 mg of Depo-medol injected after negative aspiration, the needle removed, and the entire same procedure was repeated for the left Greater occipital nerve. Patient tolerated the procedure well without any complication, The patient returned to supine position after the back was cleaned and a Band- Aid applied, the patient transported to recovery room in stable condition and he was monitored for 30 minutes before he was discharged home and then patient was reexamined before going home and patient was discharged in stable condition and patient will follow up with the pain clinic in a few weeks if patient continued to have headache will order MRI of the cervical spine for evaluation for potential causes of headache which is cervicogenic headache.
[2020-12-08 14:30] VITALS: RESP 16
[2020-12-08 14:43] VITALS: BP 142/87; PULSE 62
== END 2020-12-08 14:45 | disposition home or self-care (01) ==
LOC: ORPAIN 13:10
PROVIDERS: ATTEND Specialist
DX: G89.29 Other chronic pain (principal); M54.81 Occipital neuralgia; Z88.8 Allergy status to other drugs, medicaments and biological substances; Z88.1 Allergy status to other antibiotic agents; Z88.5 Allergy status to narcotic agent; Z88.0 Allergy status to penicillin
CPT/HCPCS: 81025; 64405; J1030; J2795

== ENCOUNTER → 2021-08-07 | Outpatient (CLI) | payer OTHER ==
--- NOTE | 2021-08-07 11:34 | FL ---
Modified barium swallow. HISTORY: Dysphagia. Modified barium swallow was performed with the department of speech pathology. The patient was prese nted with various consistencies of barium. There is no evidence for aspiration or penetration. Full report is to follow from the department of speech pathology. Impression: Normal study.
== END | disposition home or self-care (01) ==
LOC: RADFLMAIN 10:50
PROVIDERS: ATTEND Family Medicine
DX: R13.10 Dysphagia, unspecified (principal)
CPT/HCPCS: 74230

== ENCOUNTER → 2022-02-23 | Outpatient (CLI) | payer OTHER ==
--- NOTE | 2022-02-23 15:58 | US ---
EXAMINATION TYPE: US kidneys/renal and bladder DATE OF EXAM: 02/23/2022 COMPARISON: NONE CLINICAL HISTORY: N28.1. EXAM MEASUREMENTS: Right Kidney: 11.1 x 4.3 x 5.6 cm Left Kidney: 11.3 x 4.9 x 4.9 cm Right Kidney: No hydronephrosis or masses seen Left Kidney: medial cyst measuring 1.8 x 1.6 1.6cm. This is not completely simple. Monitoring is oneyda mmended Bladder: wnl IMPRESSION: 1. Left renal cyst
== END | disposition home or self-care (01) ==
LOC: RADUSWWP 13:42
PROVIDERS: ATTEND Family Medicine
DX: N28.1 Cyst of kidney, acquired (principal)
CPT/HCPCS: 76770